=== PATIENT | female | born 1950 | race Caucasian/White ===

== ENCOUNTER → 2016-06-03 | Outpatient (CLI) | payer MEDICARE ==
--- NOTE | 2016-06-04 08:16 | MM ---
Reason for exam: screening (asymptomatic). Last mammogram was performed 1 year ago. History: Patient is postmenopausal and has history of other cancer at age 26. Family history of breast cancer in paternal grandmother at age 50 and breast cancer in brother at age 52. Physical Findings: A clinical breast exam by your physician is recommended on an annual basis and results should be correlated with mammographic findings. MG Screening Mammo w CAD Bilateral CC and MLO view(s) were taken. Prior study comparison: June 01, 2015, bilateral MG screening mammo w CAD. March 09, 2014, bilateral MG screening mammo w CAD. The breast tissue is heterogeneously dense. This may lower the sensitivity of mammography. Finding: There are typically benign vascular calcifications in both breasts. There is no discrete abnormality. ASSESSMENT: Benign, BI-RAD 2 RECOMMENDATION: Routine screening mammogram of both breasts in 1 year.
== END | disposition home or self-care (01) ==
LOC: RADMAMWWP 05-23 09:17
PROVIDERS: ATTEND Family Medicine
DX: Z12.31 Encounter for screening mammogram for malignant neoplasm of breast (principal)

== ENCOUNTER → 2016-10-22 | Outpatient (CLI) | payer MEDICARE ==
--- NOTE | 2016-10-23 12:37 | PCN ---
DATE OF SERVICE: 10/22/2016 STRESS TEST (DWIGHT) INDICATION: Palpitations. BASELINE HEART RATE: 98 BASELINE BLOOD PRESSURE: 153/51 MAXIMUM HEART RATE: 154 MAXIMUM BLOOD PRESSURE: 166/66 85% MPHR: 131 100% MPHR: 150 METS: 4.0 MAXIMUM STAGE REACHED: 1 TOTAL EXERCISE TIME: 3:16 Baseline EKG showed sinus rhythm, normal axis, normal intervals. Patient exercise on Dwight protocol for a total of 3 minutes, achieving 4 METS, 100% of predicted maximum heart rate without chest pain or diagnostic ST segment depression. CONCLUSION: 1. Poor exercise tolerance. 2. Negative stress test by EKG criteria. 3. No exercise induced cardiac arrhythmia. MTDD
== END | disposition home or self-care (01) ==
LOC: RADNMMAIN 11:00
PROVIDERS: ATTEND Family Medicine
DX: R00.2 Palpitations (principal)
CPT/HCPCS: 93017

== ENCOUNTER → 2017-06-17 | Outpatient (CLI) | payer MEDICARE ==
--- NOTE | 2017-06-18 09:32 | MM ---
Reason for exam: screening (asymptomatic). Last mammogram was performed 1 year ago. History: Patient is postmenopausal and has history of other cancer at age 26. Family history of breast cancer in paternal grandmother at age 50 and breast cancer in brother at age 52. Physical Findings: A clinical breast exam by your physician is recommended on an annual basis and results should be correlated with mammographic findings. MG Screening Mammo w CAD Bilateral CC and MLO view(s) were taken. Prior study comparison: June 03, 2016, bilateral MG screening mammo w CAD. June 01, 2015, bilateral MG screening mammo w CAD. The breast tissue is heterogeneously dense. This may lower the sensitivity of mammography. Finding: There are typically benign vascular, round calcifications in both breasts. There is a chronic nodularity in the left breast. There is no discrete abnormality. ASSESSMENT: Benign, BI-RAD 2 RECOMMENDATION: Routine screening mammogram of both breasts in 1 year.
== END | disposition home or self-care (01) ==
LOC: RADMAMWWP 07:47
PROVIDERS: ATTEND Family Medicine
DX: Z12.31 Encounter for screening mammogram for malignant neoplasm of breast (principal)
CPT/HCPCS: 77067

== ENCOUNTER 2018-01-07 07:48 | Day surgery (SDC) | payer MEDICARE ==
[2018-01-01 13:01] VITALS: BMI 33.3
[~2018-01-07 07:48] MED LIST: LACTATED RINGERS 1,000 ML IV SCH; MOXIFLOXACIN HCL 0.5% DROPS 3 ML BTL OP ONE; TETRACAINE 0.5% OPHTH (PF) DROPS 4 ML BTL OP ONE; TIMOLOL 0.5% OPHTH DROPS 5 ML BTL OP ONE
[2018-01-07 10:24] VITALS: TEMP 98
[2018-01-07] MEDS: CYCLOPENTOLATE 1% OPHTH SOLN 2 ML BTL OP ONE ×3 (10:29→10:44)
[2018-01-07] MEDS: PHENYLEPHRINE 2.5% OPHTH DRP 2ML OP NR ×3 (10:32→10:48)
[2018-01-07] MEDS ORDERED: MIDAZOLAM 2 MG/2 ML VIAL ONE (11:28)
[2018-01-07] MEDS ORDERED: EPINEPHrine (PF) 0.3 ML in BALANCED SALT IRRIG SOLN COMB2 500 ML IRRIGATION ONE (11:43)
[2018-01-07] MEDS ORDERED: HYALURONATE SODIUM INTRAOCULAR 1 EACH SYRINGE (12MG/ML) INTRAOCULA ONE (11:45)
[2018-01-07] MEDS ORDERED: LIDOCAINE 1% (PF) 10MG/ML VIAL SQ ONE (11:46)
[2018-01-07] MEDS ORDERED: BALANCED SALT IRRIG SOLN COMB2 15 ML IRRIG.SOLN INTRAOCULA ONE (11:46)
--- NOTE | 2018-01-07 12:09 | P.OP ---
Date of Procedure: 01/07/18 Preoperative Diagnosis: NS & CS Postoperative Diagnosis: same Procedure(s) Performed: PIOL, OS Implants: PCB00 25.50 Anesthesia: MAC Surgeon: Toby Hardy Estimated Blood Loss (ml): 0 Pathology: none sent Condition: stable Disposition: same day Indications for Procedure: blurry vision Operative Findings: No complications
[2018-01-07 12:28] VITALS: RESP 18
[2018-01-07 12:35] VITALS: BP 126/78; PULSE 63
--- NOTE | 2018-01-08 07:47 | OP ---
OPERATIVE REPORT DATE OF SERVICE: 01/07/2018 SURGEON: Dr. Toby Hardy VIDEOGAME DESIGNER: PREOPERATIVE DIAGNOSES: Nuclear sclerosis and cortical sclerosis. POSTOPERATIVE DIAGNOSES: Nuclear sclerosis and cortical sclerosis. OPERATION: Phacoemulsification of cataract and intraocular lens implant left eye. ESTIMATED BLOOD LOSS: Zero. SPECIMEN TAKEN: None. NARRATIVE: After obtaining the appropriate consent, the patient was brought to the operating room where the patient was placed under cardiac monitoring and prepped and draped in the usual sterile manner. At the 5 o'clock position a 15 degree super sharp blade was used to create a paracentesis followed by instillation of 1% Xylocaine MPF 50:50 mix with BSS into the anterior chamber. This was followed by Amvisc to stabilize the anterior chamber. At the 3 o'clock position a self-sealing corneal flap incision was created using 2.8 mm rodriguez keratome. A cystotome was used to initiate a continuous tear capsulorrhexis which was completed with the Utrata forceps. A Binkhorst cannula was used to hydrodissect the lens nucleus followed by hydrodelineation. Phacoemulsification of the lens was performed utilizing phaco chop in 18.89 seconds at 15% power. The remaining cortical material was removed using the irrigation aspiration mode followed by additional 1% Xylocaine MPF into the anterior chamber followed by viscoelastic to stabilize the capsular bag. An ROQUE PCB00 25.5 diopters posterior chamber lens was placed into the capsular bag without difficulty. The remaining viscoelastic material was removed from the anterior chamber with the irrigation/aspiration. Balanced salt solution was used to normalize the intraocular pressure. The incision was checked for watertight integrity. The patient then received two drops of 0.5% timolol followed by two drops Vigamox, was lightly patched and shielded in the usual manner. There were no complications from the procedure. The patient tolerated the procedure well and was returned to recovery in good condition. MMODL / IJN: [id number] /
== END 2018-01-07 13:21 | disposition home or self-care (01) ==
LOC: OR 07:48
PROVIDERS: ATTEND Ophthalmology
DX: H25.13 Age-related nuclear cataract, bilateral (principal); H25.012 Cortical age-related cataract, left eye; H52.03 Hypermetropia, bilateral; H52.223 Regular astigmatism, bilateral; H35.033 Hypertensive retinopathy, bilateral; H52.4 Presbyopia; B07.9 Viral wart, unspecified; H00.026 Hordeolum internum left eye, unspecified eyelid; H00.023 Hordeolum internum right eye, unspecified eyelid; I11.9 Hypertensive heart disease without heart failure; R00.0 Tachycardia, unspecified; M19.90 Unspecified osteoarthritis, unspecified site; M54.9 Dorsalgia, unspecified; R21 Rash and other nonspecific skin eruption; E07.9 Disorder of thyroid, unspecified; M35.00 Sjogren syndrome, unspecified; J30.2 Other seasonal allergic rhinitis; Z79.890 Hormone replacement therapy; Z79.899 Other long term (current) drug therapy; Z88.5 Allergy status to narcotic agent; Z88.8 Allergy status to other drugs, medicaments and biological substances; Z85.828 Personal history of other malignant neoplasm of skin; Z87.891 Personal history of nicotine dependence
CPT/HCPCS: 66984; C1780; J2250; J0171; J2001

== ENCOUNTER 2018-01-21 06:43 | Day surgery (SDC) | payer MEDICARE ==
[2018-01-16 10:28] VITALS: BMI 33.3
[~2018-01-21 06:43] MED LIST changes: +HYDROmorphone 0.5 MG/0.5 ML SYRINGE IVP PRN; -LACTATED RINGERS 1,000 ML IV SCH; +LIDOCAINE 1% 20 ML VIAL (10MG/ML) FOR IV START INTRADERMA PRN
[2018-01-21] MEDS ORDERED: LACTATED RINGERS 1,000 ML IV SCH (06:45)
[2018-01-21] MEDS: CYCLOPENTOLATE 1% OPHTH SOLN 2 ML BTL OP ONE ×2 (07:15→07:22)
[2018-01-21] MEDS: PHENYLEPHRINE 2.5% OPHTH DRP 2ML OP NR ×3 (07:18→07:32)
[2018-01-21 07:20] VITALS: RESP 16; TEMP 97.7
[2018-01-21] MEDS ORDERED: CYCLOPENTOLATE 1% OPHTH SOLN 2 ML BTL OP ONE (07:29)
[2018-01-21] MEDS ORDERED: DUOVISC KIT (GREEN BOX) INTRAOCULA ONE (08:15)
[2018-01-21] MEDS ORDERED: LIDOCAINE 1% (PF) 10MG/ML VIAL MISCELLANE ONE (08:15)
[2018-01-21] MEDS ORDERED: EPINEPHrine (PF) 0.3 ML in BALANCED SALT IRRIG SOLN COMB2 500 ML IRRIGATION ONE (08:15)
[2018-01-21] MEDS ORDERED: BALANCED SALT IRRIG SOLN COMB2 15 ML IRRIG.SOLN IRRIGATION ONE (08:15)
--- NOTE | 2018-01-21 08:32 | P.OP ---
Date of Procedure: 01/21/18 Preoperative Diagnosis: NS Postoperative Diagnosis: same Procedure(s) Performed: PIOL, OD Implants: PCB00 25.50 Anesthesia: MAC Surgeon: Toby Hardy Pathology: none sent Condition: stable Disposition: same day Indications for Procedure: blurry vision Operative Findings: No complications
[2018-01-21 08:56] VITALS: BP 135/82; PULSE 62
--- NOTE | 2018-01-21 18:48 | OP ---
OPERATIVE REPORT DATE OF SURGERY: January 21, 2018. PROCEDURE PERFORMED: Phacoemulsification of cataract and intraocular lens implant of the right eye. COLLEGE HIRE:: @@ PREOPERATIVE DIAGNOSIS:: Nuclear sclerosis. POSTOPERATIVE DIAGNOSIS:: Nuclear sclerosis. OPERATION:: Clear cornea phacoemulsification of cataract OD eye. ESTIMATED BLOOD LOSS:: Zero. SPECIMEN TAKEN:: None. NARRATIVE:: After obtaining the appropriate consent, the patient was brought to the Operating Room where the patient was placed under cardiac monitoring and prepped and draped in the usual sterile manner. At the 11 o'clock position a 15 degree super sharp blade was used to create a paracentesis followed by instillation of 1% Xylocaine MPF 50:50 mix with BSS into the anterior chamber. This was followed by Duovisc to stabilize the anterior chamber. At the 9 o'clock position a self-sealing corneal flap incision was created using 2.8 mm rodriguez keratome. A cystatome was used to initiate a continuous tear capsulorrhexis which was completed with the Utrata forceps. A Binkhorst cannula was used to hydrodissect the lens nucleus followed by hydrodelineation. Phacoemulsification of the lens was performed utilizing phacochop in 20.78 Seconds at 15% power. The remaining cortical material was removed using the irrigation aspiration mode followed by additional 1% Xylocaine MPF into the anterior chamber followed by viscoelastic to stabilize the capsular bag. An ROQUE PZB 00 25.5 diopter posterior chamber lens was placed into the capsular bag without difficulty. The remaining viscoelastic material was removed from the anterior chamber with the irrigation/aspiration. Balanced salt solution was used to normalize the intraocular pressure. The incision was checked for watertight integrity. The patient then received two drops of 0.5% timolol followed by two drops Vigamox, was lightly patched and shielded in the usual manner. There were no complications from the procedure. The patient tolerated the procedure well and was returned to recovery in good condition. MMODL / IJN: [id number] /
== END 2018-01-21 09:13 | disposition home or self-care (01) ==
LOC: OR 06:43
PROVIDERS: ATTEND Ophthalmology
DX: H25.11 Age-related nuclear cataract, right eye (principal); H52.03 Hypermetropia, bilateral; H52.223 Regular astigmatism, bilateral; H35.033 Hypertensive retinopathy, bilateral; H52.4 Presbyopia; H25.012 Cortical age-related cataract, left eye; B07.9 Viral wart, unspecified; H00.026 Hordeolum internum left eye, unspecified eyelid; H00.023 Hordeolum internum right eye, unspecified eyelid; Z96.1 Presence of intraocular lens; I11.9 Hypertensive heart disease without heart failure; R00.0 Tachycardia, unspecified; M19.90 Unspecified osteoarthritis, unspecified site; E07.9 Disorder of thyroid, unspecified; K21.9 Gastro-esophageal reflux disease without esophagitis; J30.2 Other seasonal allergic rhinitis; Z79.890 Hormone replacement therapy; Z79.899 Other long term (current) drug therapy; Z88.8 Allergy status to other drugs, medicaments and biological substances; Z88.5 Allergy status to narcotic agent; Z85.828 Personal history of other malignant neoplasm of skin; Z87.891 Personal history of nicotine dependence
CPT/HCPCS: 66984; C1780; J0171; J2001

== ENCOUNTER → 2018-06-30 | Outpatient (CLI) | payer MEDICARE ==
--- NOTE | 2018-06-30 11:15 | MM ---
Reason for exam: screening (asymptomatic). Last mammogram was performed 1 year ago. History: Patient is postmenopausal and has history of other cancer at age 26. Family history of breast cancer in paternal grandmother at age 50 and breast cancer in brother at age 52. Physical Findings: A clinical breast exam by your physician is recommended on an annual basis and results should be correlated with mammographic findings. MG 3D Screening Mammo W/Cad Bilateral CC and MLO view(s) were taken. XCCL view(s) were taken of the left breast. Prior study comparison: June 17, 2017, bilateral MG screening mammo w CAD. June 03, 2016, bilateral MG screening mammo w CAD. The breast tissue is heterogeneously dense. This may lower the sensitivity of mammography. There are benign appearing round vascular calcifications bilaterally. There is chronic nodularity in the left breast. There is no discrete abnormality. ASSESSMENT: Benign, BI-RAD 2 RECOMMENDATION: Routine screening mammogram of both breasts in 1 year.
== END | disposition home or self-care (01) ==
LOC: RADMAMWWP 07:15
PROVIDERS: ATTEND Family Medicine
DX: Z12.31 Encounter for screening mammogram for malignant neoplasm of breast (principal)
CPT/HCPCS: 77063; 77067

== ENCOUNTER → 2019-05-27 | Outpatient (CLI) | payer MEDICARE ==
[~2019-05-27] MED LIST changes: +DENOSUMAB 60 MG/ML 1 ML SYRINGE SQ NR; -HYDROmorphone 0.5 MG/0.5 ML SYRINGE IVP PRN; -LIDOCAINE 1% 20 ML VIAL (10MG/ML) FOR IV START INTRADERMA PRN; -MOXIFLOXACIN HCL 0.5% DROPS 3 ML BTL OP ONE; -TETRACAINE 0.5% OPHTH (PF) DROPS 4 ML BTL OP ONE; -TIMOLOL 0.5% OPHTH DROPS 5 ML BTL OP ONE
[2019-05-27 14:04] VITALS: BP 145/67; PULSE 68; RESP 16; TEMP 97.9
== END | disposition home or self-care (01) ==
LOC: PROCWHC3 13:43
PROVIDERS: ATTEND Family Medicine
DX: M81.0 Age-related osteoporosis without current pathological fracture (principal)
CPT/HCPCS: 96372; J0897

== ENCOUNTER → 2020-08-30 | Outpatient (CLI) | payer MEDICARE ==
[2020-08-30 09:59] VITALS: BP 121/62; PULSE 76; RESP 16; TEMP 97.9
--- NOTE | 2020-08-30 10:17 | P.PAINCN ---
History of Present Illness - Reason for Consult Consult date: 08/30/20 - History of Present Illness This is a 70-year-old patient referred by Dr. Delma Rocha with a chief complaint of low back pain. Long history of low back pain worse on the left side. She feels like she's been hit in the low back with a bat. Occasionally radiates down the anterior aspect of her lower extremities to the foot. She describes it as sharp shooting as well as numb and tingling. Pain is helped with Motrin and forward flexion. Exacerbated by standing and moving around. Currently 6 out of 10, at its best 5 out of 10, at its worst a 10 out of 10. She notes some right shoulder pain with radiation into the thumb which she said occurred 4 years ago and she grabbed onto a railing and was pulled back. 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 In terms of management she has done physical therapy, last session was last November, which did help but overall did not provide meaningful long-lasting relief. She says Motrin helps her a lot, however it causes her to have some reflux as well as hiccuping. Also concerned about cardiac effects using emt intermediate NSAIDs. She has not had any back surgery or any injections in her back for pain. Most worrisome is she does note that most recently in the past month she has had 2 episodes of sudden bowel release where she felt she lost control of her bowels. There are no signs of acute intoxication, and no indications of medication diversion or overuse. In addition to above, 13-point review of systems is also negative for chest pain, shortness of breath, changes in vision, changes in hearing, new onset weakness, abdominal pain, diarrhea, extreme fatigue, malaise, fever, skin changes, homicidal or suicidal ideation, or bowel or bladder incontinence. Physical exam: Vital Signs: Reviewed in EMR GENERAL: Well appearing, in no acute distress PSYCH: Mood and affect is appropriate. Awake, alert, and oriented SKIN: Skin color, texture, turgor normal, no rashes or lesions HEENT: Normocephalic, atraumatic. EOM intact CV: No pedal edema RESP: Respirations are unlabored, no audible wheezing GI: Abdomen non-distended MUSCULOSKELETAL: No atrophy or tone abnormalities are noted. Neck: No pain to palpation over the cervical paraspinous muscles. Spurling negative, Axial Loading Test negative, Alcazar's sign negative. No pain with neck flexion, extension, or lateral flexion. No obvious deformity or signs of trauma. Normal cervical lordotic curve and normal cervical spine range of motion. 4/5 right shoulder flexion, otherwise strength intact. Lumbar spine: Straight leg raising in the sitting position is negative for radicular pain. Mild pain to palpation over the lumbar spine and paraspinous muscles. Positive for pain with facet loading. 4/5 EHL and 4/5 hip flexion bilaterally. Normal range of motion without pain reproduction Buttocks: No pain to palpation over the PSIS, Lyudmila test is negative Extremities: Peripheral joint ROM is full and pain free without obvious instability or laxity in all four extremities. No edema or skin discolorations noted. Gait: Gait is slow NEUR: Bilateral upper and lower extremity coordination and muscle stretch reflexes are physiologic and symmetric. Negative clonus. No loss of sensation is noted. Cranial nerves are grossly intact. Imaging: Lumbar MRI L1-2 shows a mild broad-based disc bulge mildly effacing anterior thecal sac L2-L3 shows mild to moderate facet degenerative changes bilaterally with some effacement of the posterior lateral thecal sac. Neural foramina are patent L3-L4 shows mild to moderate broad-based posterior disc protrusion effacing the anterior thecal sac. There is mild to moderate facet degenerative changes and ligamentum flavum hypertrophy. There is moderate left-sided inferior neural foraminal narrowing L4-L5 shows marketed advanced facet degenerative changes bilaterally with the posterior lateral synovial cyst. There is mild to moderate broad-based disc bulge with a right paracentral and foraminal disc protrusion effacing the anterior lateral and right lateral thecal sac. Moderate right-sided neural foraminal narrowing. L5-S1 shows mild to moderate facet degenerative changes bilaterally. Assessment: 1. Lumbar spinal stenosis 2. Lumbar spondylosis 3. Lumbar radiculopathy Plan: 1. Explanation: Diagnoses, prognoses, and multiple treatment options including but not limited to physical therapy, interventional therapies, medication management and surgery were discussed with the patient and all questions were answered to the patient's satisfaction. 2. Investigations: Given Patient's recent episodes of loss of bowel control, I've asked her to get an MRI as soon as she can and she can follow-up with us immediately. I am concerned that she might have some major stenosis which is ca using significant spinal cord impingement. If we do help her with her back, we can consider cervical MRI in the future as well to evaluate her right arm pain. However I feel her back is most concerning right now 3. Counseling: The patient was counseled for 3 minutes on BODY MASS INDEX, EXERCISE. Specifically, the patient was instructed regarding the importance of weight control, and exercise in the context of both chronic pain and overall health. 4. Procedures: If there is no major spinal cord stenosis that requires surgery, I think she would be a good candidate for medial branch blocks at L4-L5 and L5- S1. She could also benefit from epidural injections in the future given her radicular symptoms, however given that a majority of her pain is axial in nature I think pursuing the medial branch interventions would be most helpful for her. 5. Consultations: Consider neurosurgery consult if MRI shows major stenosis 6. Medications: I have prescribed Meloxicam for her 7.5 mg BID as she has been having some GI side effects from motrin. I told her to start with 7.5 mg QHS first to see how she first tolerates. We also discussed muscle relaxers, however she said she took them in the past with limited benefit. 7. Disposition: She will call to follow up after obtaining MRI Past Medical History Past Medical History: Cancer, Eye Disorder, Hyperlipidemia, Hypertension, Pulmonary Embolus (PE) Additional Past Medical History / Comment(s): PE AGE 28 , SKIN CANCER ON FORHEAD History of Any Multi-Drug Resistant Organisms: None Reported Past Surgical History: Hysterectomy Additional Past Surgical History / Comment(s): SKIN CANCER REMOVED FROM FORHEAD, COLONOSCOPY,SEVERAL D & C'S R/T MISCARRIAGES, cataract left eye Past Anesthesia/Blood Transfusion Reactions: Postoperative Nausea & Vomiting (PONV) Past Psychological History: No Psychological Hx Reported Past Alcohol Use History: Occasional Additional Past Alcohol Use History / Comment(s): QUIT SMOKING AGE 27 Past Drug Use History: None Reported - Past Family History Brother(s) Family Medical History: Cancer Medications and Allergies Home Medications Medication Instructions Recorded Confirmed Type Levothyroxine Sodium [Synthroid] 25 mcg PO DAILY 01/01/18 05/27/19 History amLODIPine [Norvasc] 10 mg PO DAILY 01/01/18 05/27/19 History Allergies Allergy/AdvReac Type Severity Reaction Status Date / Time acetaminophen AdvReac DIZZINESS [facility]27[facility]19 [facility]hene AdvReac DIZZINESS Verified 05/27/19 [facility]:00 [facility] Rkidxty-Kex-Oap Reductase AdvReac GENERALIZED Verified 05/27/19 14:00 Inhibitor BODY ACHES/PAINS PQRS Measure Charge Sheet PQRS Narrative: Smoking Status Former smoker Home Medications: Ambulatory Orders Levothyroxine Sodium [Synthroid] 25 mcg PO DAILY 01/01/18 amLODIPine [Norvasc] 10 mg PO DAILY 01/01/18
== END ==
LOC: PNWHC3 09:28
PROVIDERS: ATTEND Anesthesiology
DX: M48.061 Spinal stenosis, lumbar region without neurogenic claudication (principal); M54.16 Radiculopathy, lumbar region; M47.816 Spondylosis without myelopathy or radiculopathy, lumbar region; I10 Essential (primary) hypertension; E78.5 Hyperlipidemia, unspecified; Z87.891 Personal history of nicotine dependence
CPT/HCPCS: 99211

== ENCOUNTER → 2020-09-11 | Outpatient (CLI) | payer MEDICARE ==
--- NOTE | 2020-09-11 13:36 | MR ---
EXAMINATION TYPE: MR lumbar spine wo con DATE OF EXAM: 09/11/2020 COMPARISON: NONE HISTORY: Low back pain, loss of bowel control TECHNIQUE: Multiplanar, multisequence imaging of the lumbar spine is performed without IV contrast. FINDINGS: Sagittal images of the lumbar spine show vertebral body heights to appear satisfactory. Sev ere grade 1 anterolisthesis L4 on L5. Multilevel disc desiccation. Moderate to advanced disc space na rrowing L3-L4 level. Moderate disc space narrowing L4-L5 level. Conus medullaris is normal in positio n and signal ending superior L1 level. Small Tarlov cysts at S2 level sagittal image 9. Heterogeneous morbid type I and type II endplate changes L3-L4 level. Axial images show T12-L1 level to appear within normal limits. Axial images at L1-L2 level show mild broad disc bulge minimally effaces the anterior thecal sac and mild facet arthropathy bilaterally. Patent bilateral neural foramina. Axial images at L2-L3 level show mild/moderate facet degenerative changes and ligament hypertrophy. M ild broad disc bulge mildly effaces the anterior thecal sac. Axial images at L3-L4 level show moderate facet degenerative changes with facet hypertrophy present p osterior left thecal sac. Mild/moderate broad disc bulge effacing the anterior thecal sac. Moderate t o severe left-sided neural foraminal narrowing seen best sagittal image 6. Patent right-sided neural foramina. Axial images at L4-L5 level show spondylolisthesis with severe ligamentum flavum hypertrophy base and posterior lateral thecal sac. There is broad-based posterior disc protrusion effacing anterior theca l sac. Moderate bilateral neural foraminal narrowing noted. Axial images at L5-S1 level show moderate facet arthropathy. Spinal canal preserved. IMPRESSION: Multilevel degenerative changes as detailed above. Most prominent spinal canal stenosis n oted L4-L5 level. Most prominent neural foraminal narrowing noted left L3-L4 level.
== END | disposition home or self-care (01) ==
LOC: RADMRIMAIN 06:08
PROVIDERS: ATTEND Anesthesiology
DX: M51.26 Other intervertebral disc displacement, lumbar region (principal); M51.36 Other intervertebral disc degeneration, lumbar region; M99.73 Connective tissue and disc stenosis of intervertebral foramina of lumbar region; M43.16 Spondylolisthesis, lumbar region; M47.817 Spondylosis without myelopathy or radiculopathy, lumbosacral region; M48.061 Spinal stenosis, lumbar region without neurogenic claudication
CPT/HCPCS: 72148

== ENCOUNTER → 2020-10-02 | Outpatient (CLI) | payer MEDICARE ==
[2020-10-02 08:03] VITALS: BP 136/80; PULSE 79; RESP 16; TEMP 98.1
--- NOTE | 2020-10-02 08:38 | P.PAINPG ---
Subjective Progress Note Date: 10/02/20 This is follow-up visit for this 70 years old female with a chronic history of severe low back pain, the patient here today for discussion about the MRI result , patient had severe low back pain which is increased with activity , she is able to ambulate using a cane, she continued to work, she reporte that the pain is constant and increases with any activity, her MRI report reviewed and it showed that she had multilevel lumbar degenerative disc disease, multilevel lumbar spondylosis with lumbar facet arthropathy and multilevel foraminal stenosis, she denies any fever or night sweats but she has occasional diarrhea Objective - Vital Signs Vital signs: Vital Signs Temp 98.1 F 10/02/20 08:00 Pulse 79 10/02/20 08:00 Resp 16 10/02/20 08:00 BP 136/80 10/02/20 08:00 Pulse Ox 99 10/02/20 08:00 - Exam Physical Examinations : -Constitutiona : Cooperative , not in acute distress . -HEENT : nech : supple , no Lymphadenopathy , normal thyroid size . : eyes : no ptosis , no icterus, no photophobia . - neurologic : Cranial nerve II to XII intact , no focal neurological deffecit . -psychatric : alert , oriented X 3 , appropriate affect , intact judgment and insight . -Lymphatic : no Lymphadenopathy . - musculoskeltal : Lumber spine moter stegnth lower extremities ,thigh and legs 5/5 Right side , 5/5 Left side deep tendon reflexes : normal Knee Jerk , normal ankle Jerk lumber facet Loading Test =positive Right , positive Left Range of motion of the lumbar spine Flexion 30 degrees, extension 10 degrees strait leg raising test = negative bilaterally Fabere test= negative bilaterally. mild tenderness over the Sacroiliac joint on the Right , and Left sides. MRI of the lumbar spine reviewed and it showed T11 lumbar degenerative disc disease multilevel foraminal stenosis multilevel lumbar facet arthropathy Assessment and Plan Plan: Assessment and plan=1-lumbar degenerative disc disease. 2-lumbar spondylosis with lumbar facet arthropathy. 3-lumbar spinal stenosis. Patient failed conservative treatment she tried physical therapy without any significant improvement of her symptoms she tries pain medication and said naproxen Mobic and Motrin previously without any significant improvement, and she is having side effects from the medication(st omach irritation, and she had a history of GERD ), patient could benefit from Ultram 50 mg half a tablet every 8 hours when necessary prescription for that given and patient signed the narcotic agreement side effects and benefits and complications of bowel. Discussed with the patient and she understood , and she agreed to proceed, so patient could benefit from diagnostic medial branch block and possible RFA of the medial branch lumbar area at L3, L4, L5, bilaterally and she has good results with that block to proceed with RFA Time with Patient: Less than 30 PQRS Measure Charge Sheet Measure #130: Documentation of Current Meds in Medical Chart: Patient's medications documented in chart Measure #226: Tobacco Use: Screen & Cessation Intervention: Pt not a tobacco user Measure #111: Pneumonia Vaccination: Pneumococcal vaccine NOT administered or previously given Measure #47: Advance Care Plan: Advance care planning discussed & documented, pt chose/unable to give Measure #412: Opioid Treatment Agreement: Documented signed opioid trtmnt agreemnt min once during opioid trtmnt Measure #408: Opioid Therapy Follow-up Evaluation: Patient had f/u eval minimum every 3 months during opioid therapy Measure #317: Preventitive Care & Scrn High Bld Press & F/U: Normal blood pressure, f/u not required Measure #128: Body Mass Index (BMI) Screening & Follow-up: BMI documented ABOVE normal parameters - f/u documented Measure #131: Pain Assessment & Follow-up: Pain positive & plan documented, Follow-up scheduled Measure #431: Unhealthy Alcohol Use Preventative Care & Scrn: Patient not identified as an unhealthy alcohol user PQRS Narrative: Smoking Status Former smoker Blood Pressure 136/80 Pain Intensity [Left Lower 5 Back] Scale Used Numeric (1 - 10) Hx Alcohol Use (MH) Yes Home Medications: Ambulatory Orders Levothyroxine Sodium [Synthroid] 25 mcg PO DAILY 01/01/18 amLODIPine [Norvasc] 10 mg PO DAILY 01/01/18 Controlled Substance Measures - Controlled Substance Measures Is patient prescribed a controlled substance at discharge?: Yes
== END ==
LOC: PNWHC3 07:49
PROVIDERS: ATTEND Specialist
DX: M51.36 Other intervertebral disc degeneration, lumbar region (principal); M47.816 Spondylosis without myelopathy or radiculopathy, lumbar region; M48.061 Spinal stenosis, lumbar region without neurogenic claudication; Z87.891 Personal history of nicotine dependence; Z88.6 Allergy status to analgesic agent; Z88.8 Allergy status to other drugs, medicaments and biological substances; Z88.5 Allergy status to narcotic agent
CPT/HCPCS: 99211

== ENCOUNTER → 2020-10-13 | Day surgery (SDC) | payer MEDICARE ==
[2020-10-12 09:30] VITALS: BMI 35.5
[~2020-10-13] MED LIST changes: -DENOSUMAB 60 MG/ML 1 ML SYRINGE SQ NR; +IV FLUID CONTINUATION 1,000 ML IV ONE; +LACTATED RINGERS 1,000 ML IV ONE; +MIDAZOLAM 2 MG/2 ML VIAL ONE; +ROPIVACAINE 5MG/ML 20ML VIAL ONE; +fentaNYL (PF) 50 MCG/ML 2 ML AMP ONE; +methylPREDNISolone ACETATE 40 MG/ML 1 ML VIAL ONE
[2020-10-13 13:20] VITALS: TEMP 98.1
--- NOTE | 2020-10-13 14:21 | P.PCN ---
Date of Procedure: 10/13/20 Procedure(s) Performed: PREOPERATIVE DIAGNOSIS : 1- Lumbar spondylosis with Facet Arthropathy without myelopathy . 2- Lumber degenerative disc disease POSTOPERATIVE DIAGNOSIS: 1- Lumbar spondylosis with Facet Arthropathy without myelopathy . 2- Lumber degenerative disc disease PROCEDURE: Diagnostic bilateral L3 , L4 , and L5 medial branch block under fluoroscopy guidance(fluoroscopy images available in the radiology Department ) ( To target the facet joint between bilateral L4-5 , and L5-S1 ) ANESTHESIA:monitored anesthesia care as per anesthesia department. EBL: Minimal COMPLICATION: None PROCEDURE INDICATION: Chronic low back pain secondary to Facet arthropathy unresponsive to conservative treatment. PROCEDURE DESCRIPTION: the patient was seen and identified in the preop holding area , risks and benefits and possible complications of the procedure and alternative were discussed with the patient, and the patient agreed to proceed with the procedure and signed the consent and vital signs monitored during the procedure and fluoroscopy was used to maximize the benefit and accuracy of the needle placement, and sedation was given to decrease patient anxiety, patient was taken to the procedure room and placed in prone position vital signs monitored in the back prepped with chlorhexidine X3 then under strict sterile technique using a right oblique fluoroscopy ,the junction of the transverse process and the superior articulating process of the right L3 , L4 , and L5 vertebra which corresponding to the fluoroscopy image of the eye of the Jose Miguel dog on the block side for the medial branches and subsequently , after local infiltration of skin and subcu tissuies with Ropivacaine 0.5 % , one mL at each level ,then 22-gauge 5 inches long Quincke-type needles , 3 needle was used , each one of them placed at the junction of the base of the transverse process and the superior articular process at the appropriate level, and the needle was advanced until the periosteum contacted, needle placement confirmed with AP oblique and lateral view and after appropriate needle placement confirmed, and after negative aspiration for heme and CSF and there was no paresthesia 1-1/2 mL of Ropivacaine 0.5% mixed with 20 mg Depo-Medrol , then half mL injected at each level after negative aspiration the needle subsequently removed and the same procedure repeated for the left side at left side at L3 , L4 and L5 levels. At the end of the procedure and the needles removed and a bandage applied after the skin was cleaned the cleaning solution patient taken to recovery room in stable condition and monitors in the recovery room for 20-30 minutes and discharged home in stable condition after discharge criteria met and patient will follow up with the pain clinic in 2-4 weeks
[2020-10-13] MEDS: LACTATED RINGERS 1,000 ML IV SCH (14:25)
[2020-10-13 14:27] VITALS: RESP 17
--- NOTE | 2020-10-13 14:33 | FL ---
Fluoroscopy INDICATION: Pain FINDINGS: Fluoroscopy time: 34 seconds. Images obtained: 4. IMPRESSIONS: 1. Documentation of fluoroscopy.
[2020-10-13 14:37] VITALS: BP 122/71; PULSE 79
[2020-10-17] MEDS: LACTATED RINGERS 1,000 ML IV SCH (10:42)
== END ==
LOC: ORPAIN 12:57
PROVIDERS: ATTEND Specialist
DX: G89.29 Other chronic pain (principal); M47.816 Spondylosis without myelopathy or radiculopathy, lumbar region; M51.36 Other intervertebral disc degeneration, lumbar region; I10 Essential (primary) hypertension; E78.5 Hyperlipidemia, unspecified; Z86.711 Personal history of pulmonary embolism; E07.9 Disorder of thyroid, unspecified; Z79.1 Long term (current) use of non-steroidal anti-inflammatories (NSAID); Z79.890 Hormone replacement therapy; Z79.899 Other long term (current) drug therapy; Z88.5 Allergy status to narcotic agent; Z88.8 Allergy status to other drugs, medicaments and biological substances
CPT/HCPCS: 64493; 64494; J2250; J1030; J3010; J2795

== ENCOUNTER 2020-11-03 08:58 | Day surgery (SDC) | payer MEDICARE ==
[2020-11-02 08:55] VITALS: BMI 35.9
[2020-11-03 09:11] VITALS: TEMP 97.7
[2020-11-03] MEDS ORDERED: LACTATED RINGERS 1,000 ML IV ONE (09:12)
[2020-11-03] MEDS ORDERED: LIDOCAINE 1% (10MG/ML) FOR IV START INTRADERMA ONE (09:16)
[2020-11-03] MEDS ORDERED: MIDAZOLAM 2 MG/2 ML VIAL ONE (09:21)
[2020-11-03] MEDS ORDERED: TRIAMCINOLONE ACETONIDE 40 MG/ML 1 ML VIAL ONE (09:21)
[2020-11-03] MEDS ORDERED: fentaNYL (PF) 50 MCG/ML 2 ML AMP ONE (09:21)
[2020-11-03] MEDS ORDERED: IOPAMIDOL M200 10 ML VIAL ONE (09:21)
[2020-11-03] MEDS ORDERED: ROPIVACAINE 5MG/ML 20ML VIAL ONE (09:21)
[2020-11-03] MEDS ORDERED: IV FLUID CONTINUATION 1,000 ML IV ONE (09:40)
--- NOTE | 2020-11-03 09:41 | P.PCN ---
Date of Procedure: 11/03/20 Description of Procedure: PREOPERATIVE DIAGNOSIS : 1- Lumbar spondylosis with Facet Arthropathy without myelopathy . 2- Lumber degenerative disc disease POSTOPERATIVE DIAGNOSIS: 1- Lumbar spondylosis with Facet Arthropathy without myelopathy . 2- Lumber degenerative disc disease PROCEDURE: Diagnostic bilateral #2 L3 , L4 , and L5 medial branch block under fluoroscopy guidance(fluoroscopy images available in the radiology Department ) ( To target the facet joint between bilateral L4-5 , and L5-S1 ) ANESTHESIA:monitored anesthesia care as per anesthesia department. EBL: Minimal COMPLICATION: None PROCEDURE INDICATION: Chronic low back pain secondary to Facet arthropathy unresponsive to conservative treatment. PROCEDURE DESCRIPTION: the patient was seen and identified in the preop holding area , risks and benefits and possible complications of the procedure and alternative were discussed with the patient, and the patient agreed to proceed with the procedure and signed the consent and vital signs monitored during the procedure and fluoroscopy was used to maximize the benefit and accuracy of the needle placement, and sedation was given to decrease patient anxiety, patient was taken to the procedure room and placed in prone position vital signs monitored in the back prepped with chlorhexidine X3 then under strict sterile technique using a right oblique fluoroscopy ,the junction of the transverse process and the superior articulating process of the right L3 , L4 , and L5 vertebra which corresponding to the fluoroscopy image of the eye of the Jose Miguel dog on the block side for the medial branches and subsequently , after local infiltration of skin and subcu tissuies with Ropivacaine 0.5 % , one mL at each level ,then 25-gauge 5 inches long Quincke-type needles , 3 needle was used , each one of them placed at the junction of the base of the transverse process and the superior articular process at the appropriate level, and the needle was advanced until the periosteum contacted, needle placement confirmed with AP oblique and lateral view and after appropriate needle placement confirmed, and after negative aspiration for heme and CSF and there was no paresthesia 1-1/2 mL of Ropivacaine 0.5% mixed with 20 mg Depo-Medrol , then half mL injected at each level after negative aspiration the needle subsequently removed and the same procedure repeated for the left side at left side at L3 , L4 and L5 levels. At the end of the procedure and the needles removed and a bandage applied after the skin was cleaned the cleaning solution patient taken to recovery room in stable condition and monitors in the recovery room for 20-30 minutes and discharged home in stable condition after discharge criteria met and patient will follow up with the pain clinic in 2-4 weeks
[2020-11-03 09:55] VITALS: BP 115/76; PULSE 72; RESP 16
--- NOTE | 2020-11-03 10:06 | FL ---
EXAMINATION TYPE: FL guided pain mgmt statistic DATE OF EXAM: 11/03/2020 CLINICAL HISTORY: Low back pain. TECHNIQUE: Fluoroscopy. COMPARISON: None. FINDINGS: Fluoroscopic guidance was provided during pain relief procedure performed by Dr. Higuera . A total of 12 seconds of fluoroscopic time was utilized during the procedure and 3 spot images are acquired. Images acquired shows needle localization at several levels near the lumbosacral junction. IMPRESSION: As Above.
== END 2020-11-03 10:10 | disposition home or self-care (01) ==
LOC: ORPAIN 08:58
PROVIDERS: ATTEND Anesthesiology
DX: G89.29 Other chronic pain (principal); M47.816 Spondylosis without myelopathy or radiculopathy, lumbar region; Z88.8 Allergy status to other drugs, medicaments and biological substances; M51.36 Other intervertebral disc degeneration, lumbar region; I10 Essential (primary) hypertension; Z86.718 Personal history of other venous thrombosis and embolism; E07.9 Disorder of thyroid, unspecified; Z79.1 Long term (current) use of non-steroidal anti-inflammatories (NSAID); Z79.890 Hormone replacement therapy; Z79.899 Other long term (current) drug therapy
CPT/HCPCS: 64493; 64494; J2250; J3301; J3010; Q9966; J2795

== ENCOUNTER → 2020-11-27 | Outpatient (CLI) | payer MEDICARE ==
[2020-11-27 08:43] VITALS: BP 128/80; PULSE 74; RESP 18; TEMP 97.9
--- NOTE | 2020-11-27 08:59 | P.PN ---
Subjective Progress Note Date: 11/27/20 This is follow-up visit for this 70 years old female with a chronic history of severe low back pain, is diagnosed with lumbar spondylosis with lumbar facet arthropathy, lumbar spinal stenosis, recently we have done diagnostic medial branch block lumbar area x2 , patient reported that after each block she gets more than 80% improvement of her low back pain, and she was able to function and move freely after each block, the pain relief was only for short-term, patient had severe low back pain which is increased with activity , she is able to ambulate using a cane, she continued to work, she reporte that the pain is constant and increases with any activity, she denies any fever or night sweats ,. Physical Examinations : -Constitutiona : Cooperative , not in acute distress . -HEENT : nech : supple , no Lymphadenopathy , normal thyroid size . : eyes : no ptosis , no icterus, no photophobia . - neurologic : Cranial nerve II to XII intact , no focal neurological deffecit . -psychatric : alert , oriented X 3 , appropriate affect , intact judgment and insight . -Lymphatic : no Lymphadenopathy . - musculoskeltal : Lumber spine moter stegnth lower extremities ,thigh and legs 5/5 Right side , 5/5 Left side deep tendon reflexes : normal Knee Jerk , normal ankle Jerk lumber facet Loading Test =positive Right , positive Left Range of motion of the lumbar spine Flexion 30 degrees, extension 10 degrees strait leg raising test = negative bilaterally Fabere test= negative bilaterally. mild tenderness over the Sacroiliac joint on the Right , and Left sides. Small mass 3 mm diameter in the left buttock area MRI of the lumbar spine reviewed and it showed T11 lumbar degenerative disc disease multilevel foraminal stenosis multilevel lumbar facet arthropathy Assessment and Plan Plan: Assessment and plan=1-lumbar degenerative disc disease. 2-lumbar spondylosis with lumbar facet arthropathy. 3-lumbar spinal stenosis. Patient failed conservative treatment she tried physical therapy without any significant improvement of her symptoms she tries pain medication and said naproxen Mobic and Motrin previously without any significant improvement, and she is having side effects from the medication(stomach irritation, and she had a history of GERD ), patient could benefit from Ultram 50 mg half a tablet every 8 hours when necessary prescription for that given and patient signed the narcotic agreement side effects and benefits and complications of bowel. Discussed with the patient and she understood , patient had more than 80% improvement of her low back pain after diagnostic medial branch block , she would be good candidate to have RFA of the medial branch lumbar area at L3, L4, L5, bilaterally , she will be referred for evaluation regarding her left buttock mass Time with Patient: Less than 30 PQRS Measure Charge Sheet Measure #130: Documentation of Current Meds in Medical Chart: Patient's medications documented in chart Measure #226: Tobacco Use: Screen & Cessation Intervention: Pt not a tobacco user Measure #111: Pneumonia Vaccination: Pneumococcal vaccine NOT administered or previously given Measure #47: Advance Care Plan: Advance care planning discussed & documented, pt chose/unable to give Measure #412: Opioid Treatment Agreement: Documented signed opioid trtmnt agreemnt min once during opioid trtmnt Measure #408: Opioid Therapy Follow-up Evaluation: Patient had f/u eval minimum every 3 months during opioid therapy Measure #317: Preventitive Care & Scrn High Bld Press & F/U: Normal blood pressure, f/u not required Measure #128: Body Mass Index (BMI) Screening & Follow-up: BMI documented ABOVE normal parameters - f/u documented Measure #131: Pain Assessment & Follow-up: Pain positive & plan documented, Follow-up scheduled Measure #431: Unhealthy Alcohol Use Preventative Care & Scrn: Patient not identified as an unhealthy alcohol user PQRS Narrative: Objective - Vital Signs Vital signs: Vital Signs Temp 97.9 F 11/27/20 08:38 Pulse 74 11/27/20 08:38 Resp 18 11/27/20 08:38 BP 128/80 11/27/20 08:38 Pulse Ox 97 11/27/20 08:38
== END ==
LOC: PNWHC3 08:24
PROVIDERS: ATTEND Specialist
DX: M47.816 Spondylosis without myelopathy or radiculopathy, lumbar region (principal); M48.061 Spinal stenosis, lumbar region without neurogenic claudication; M51.36 Other intervertebral disc degeneration, lumbar region; Z88.5 Allergy status to narcotic agent; Z88.8 Allergy status to other drugs, medicaments and biological substances; Z87.891 Personal history of nicotine dependence
CPT/HCPCS: 99211

== ENCOUNTER 2021-01-05 06:54 | Day surgery (SDC) | payer MEDICARE ==
[2020-12-29 14:35] VITALS: BMI 36.2
[2021-01-05] MEDS: LACTATED RINGERS 1,000 ML IV SCH ×2 (07:30→08:01)
[2021-01-05] MEDS ORDERED: LIDOCAINE 1% (10MG/ML) FOR IV START INTRADERMA ONE (07:30)
[2021-01-05 07:33] VITALS: RESP 16; TEMP 97.1
[2021-01-05] MEDS ORDERED: MIDAZOLAM 2 MG/2 ML VIAL ONE (08:00)
[2021-01-05] MEDS ORDERED: ROPIVACAINE 5MG/ML 20ML VIAL ONE (08:00)
[2021-01-05] MEDS ORDERED: methylPREDNISolone ACETATE 40 MG/ML 1 ML VIAL ONE (08:00)
[2021-01-05] MEDS ORDERED: fentaNYL (PF) 50 MCG/ML 2 ML AMP ONE (08:00)
--- NOTE | 2021-01-05 08:28 | P.PCN ---
Date of Procedure: 01/05/21 Procedure(s) Performed: PREOPERATIVE DIAGNOSIS: 1-Lumbar Spondylosis with Facet Arthropathy without myelopathy. 2- Lumber degenerative disc disease. POSTOPERATIVE DIAGNOSIS: 1- Lumbar Spondylosis with Facet Arthropathy without myelopathy. 2- Lumber degenerative disc disease. PROCEDURES : Bilateral Radiofrequency thermocoagulation, L3 , L4 , and L5 medial branch, with fluoroscopic guidance (fluoroscopy images available in the radiology department) ( to denervate the facet joint at L4-5 ,and L5-S1 levels ). ANESTHESIA: Monitored anesthesia care, as per anesthesia department. EBL: Minimal PROCEDURE INDICATION: The patient with low back pain secondary to lumbar facet arthropathy who had more than 50% relief of her pain with previous diagnostic lumbar medial branch block with bupivacaine. PROCEDURE DESCRIPTION / TECHNIQUE: The patient was seen and identified in the preoperative area. Risks, benefits, complications, including but not limited to risk of infection ,bleeding , allergic reactions to the medications and no complete pain releife , and alternatives were discussed with the patient, the patient agreed to proceed with the procedure and signed the consent. IV was started. Vital signs remained stable throughout the procedure. Patient was taken to the OR and time out was completed. The patient was placed in the prone position on the procedure table. The lumber area was prepped and draped in the usual sterile fashion. . Vital signs were closely monitored during the procedure .IV sedation was used during the procedure to decrease patients anxiety. Using AP and then oblique fluoroscopy, the ``eye of the Jose Miguel dog correspondi ng to the connection between the superior and transverse articular processes of right L3, L4, and L5 were identified, marked, and localized with 1% lidocaine. Subsequently, a 18 [id number] radiofrequency cannula with a 10-mm active tip was advanced guided by fluoroscopy to each of the``eyes of the Jose Miguel dog at right L3, L4, and L5. Each site then underwent sensory testing at 50 Hz and 0 to 1 volt and motor testing at 2.5 Hz and 0 to 3 volt with local stimulation, but no radicular symptoms down the legs. Thereafter each sites underwent radiofrequency thermocoagulation at 80 degrees celsius for 90 seconds after injecting 0.5 ml of PF Ropivacaine 1ml, then after the thermocoagulation done , 1 ml of the block solution containing Depo-Medrol 40 mg and 3 ml of Ropivacaine 0.5% was injected at the right L3 , L4 , and L5 , levels after negative aspiration of CSF and blood and with no paresthesias. Cannulas were retracted while injecting lidocaine 1% until the needle is out. The same procedure was repeated at the level of Left L3, L4, and L5 levels. At the end of the procedure, the skin was cleansed and bandages were applied. COMPLICATIONS: No acute complications. DISPOSITION / PLANS: The patient was placed in a supine position and transferred to the recovery area in a stable condition for observation and was discharged from the recovery room after meeting discharge criteria. Home discharge instructions given to the patient by the staff. The patient was reexamined prior to discharge. The patient will schedule a follow up in the clinic in 2-4 weeks.
[2021-01-05] MEDS ORDERED: IV FLUID CONTINUATION 1,000 ML IV ONE (08:41)
[2021-01-05 08:54] VITALS: BP 128/78; PULSE 78
--- NOTE | 2021-01-05 10:17 | FL ---
EXAMINATION TYPE: FL guided pain mgmt statistic DATE OF EXAM: 01/05/2021 HISTORY: Pain 20sec fluoro time,6 images to PACS
== END 2021-01-05 09:19 | disposition home or self-care (01) ==
LOC: ORPAIN 06:54
PROVIDERS: ATTEND Specialist
DX: M47.816 Spondylosis without myelopathy or radiculopathy, lumbar region (principal); I10 Essential (primary) hypertension; E78.5 Hyperlipidemia, unspecified; Z87.891 Personal history of nicotine dependence; Z86.711 Personal history of pulmonary embolism; Z79.890 Hormone replacement therapy; Z79.899 Other long term (current) drug therapy
CPT/HCPCS: 64635; 64636; J2250; J1030; J3010; J2795

== ENCOUNTER → 2021-02-05 | Outpatient (CLI) | payer MEDICARE ==
[2021-02-05 09:12] VITALS: BP 129/84; PULSE 74; RESP 18; TEMP 97.8
--- NOTE | 2021-02-05 09:48 | P.PN ---
Subjective Progress Note Date: 02/05/21 This is follow-up visit for this 70 years old female with a chronic history of severe low back pain, diagnosed with lumbar degenerative disc disease, lumbar spondylosis with lumbar facet arthropathy, lumbar foraminal stenosis , previously have done RFA of the medial branch lumbar area, to get good relief for a few weeks and currently she is having severe low back pain which is increased with activity , she is able to ambulate using a cane, she continued to work, she reporte that the pain is constant and increases with any activity, her MRI report reviewed and it showed that she had multilevel lumbar degenerative disc disease, multilevel lumbar spondylosis with lumbar facet arthropathy and multilevel foraminal stenosis, she denies any fever or night sweats, already tried physical therapy without any benefit and she is in Stretches and home exercise she already tried medication meloxicam, he continued to have severe pain Physical Examinations : -Constitutiona : Cooperative , not in acute distress . -HEENT : nech : supple , no Lymphadenopathy , normal thyroid size . : eyes : no ptosis , no icterus, no photophobia . - neurologic : Cranial nerve II to XII intact , no focal neurological deffecit . -psychatric : alert , oriented X 3 , appropriate affect , intact judgment and insight . -Lymphatic : no Lymphadenopathy . - musculoskeltal : Lumber spine moter stegnth lower extremities ,thigh and legs 5/5 Right side , 5/5 Left side deep tendon reflexes : normal Knee Jerk , normal ankle Jerk lumber facet Loading Test =positive Right , positive Left Range of motion of the lumbar spine Flexion 30 degrees, extension 10 degrees strait leg raising test = negative bilaterally Fabere test= negative bilaterally. mild tenderness over the Sacroiliac joint on the Right , and Left sides. MRI of the lumbar spine reviewed and it showed T11 lumbar degenerative disc disease multilevel foraminal stenosis multilevel lumbar facet arthropathy Assessment and plan=1-lumbar degenerative disc disease. 2-lumbar spondylosis with lumbar facet arthropathy. 3-lumbar spinal stenosis. Patient failed conservative treatment she tried physical therapy without any significant improvement of her symptoms she tries pain medication and said naproxen Mobic and Motrin previously without any significant improvement, currently on meloxicam She continued to have severe pain after RFA of the medial branch lumbar area Patient could benefit from lumbar epidural steroid injection at L5-S1 under fluoroscopy guidance Time with Patient: Less than 30 - PQRS measures = - Patient's medications are documented in the chart. -Tobacco use is positive, and counseling.Given. -Patient's has not received pneumococcal vaccine. -Advanced care planning discussed, patient not eligible. -Opiate contract not signed. -Pain positive and follow-up visit/procedure is scheduled. -Patient's blood pressure measured [ 129/84 ] , and documented in the record ,and patient will follow up with the primary care. -Patient's weight was measured and body mass index [ ] above the normal limits and counseling was done. and patient instructed to follow-up with the primary care physician. -Patient was not identified as an unhealthy alcohol user Objective - Vital Signs Vital signs: Vital Signs Temp 97.8 F 02/05/21 09:06 Pulse 74 02/05/21 09:06 Resp 18 02/05/21 09:06 BP 129/84 02/05/21 09:06 Pulse Ox 96 02/05/21 09:06
== END ==
LOC: PNWHC3 08:51
PROVIDERS: ATTEND Specialist
DX: M51.36 Other intervertebral disc degeneration, lumbar region (principal); M47.816 Spondylosis without myelopathy or radiculopathy, lumbar region; M48.061 Spinal stenosis, lumbar region without neurogenic claudication; Z87.891 Personal history of nicotine dependence; Z88.8 Allergy status to other drugs, medicaments and biological substances; Z88.6 Allergy status to analgesic agent
CPT/HCPCS: 99211

== ENCOUNTER 2021-03-06 08:56 | Day surgery (SDC) | payer MEDICARE ==
[2021-03-02 12:20] VITALS: BMI 36.0
[~2021-03-06 08:56] MED LIST changes: -IV FLUID CONTINUATION 1,000 ML IV ONE; -LACTATED RINGERS 1,000 ML IV ONE; +LACTATED RINGERS 1,000 ML IV SCH; -MIDAZOLAM 2 MG/2 ML VIAL ONE; -ROPIVACAINE 5MG/ML 20ML VIAL ONE; -fentaNYL (PF) 50 MCG/ML 2 ML AMP ONE; -methylPREDNISolone ACETATE 40 MG/ML 1 ML VIAL ONE
[2021-03-06 09:06] VITALS: TEMP 97.8
[2021-03-06] MEDS ORDERED: LACTATED RINGERS 1,000 ML IV ONE (09:07)
[2021-03-06] MEDS ORDERED: methylPREDNISolone ACETATE 40 MG/ML 1 ML VIAL ONE (09:30)
[2021-03-06] MEDS ORDERED: fentaNYL (PF) 50 MCG/ML 2 ML AMP ONE (09:30)
[2021-03-06] MEDS ORDERED: MIDAZOLAM 2 MG/2 ML VIAL ONE (09:30)
[2021-03-06] MEDS ORDERED: IOPAMIDOL M200 10 ML VIAL ONE (09:30)
--- NOTE | 2021-03-06 09:39 | P.PCN ---
Date of Procedure: 03/06/21 Procedure(s) Performed: PREOPERATIVE DIAGNOSIS: 1- Lumbar Degenerative Disc Diseases 2-Lumbar spondylosis with Facet arthropathy without myelopathy POSTOPERATIVE DIAGNOSIS: Same as preop diagnosis. PROCEDURE 1. Lumbar epidural steroid injection under fluoroscopic guidance at the L5-S1 level. (Fluoroscopy imaging was available in radiology department) 2. Lumbar epidurogram. ANESTHESIA: Local with 1% lidocaine 3 ml and , moderate sedation with intravenous Versed 2 mg ,and fentanyle 50 Mcg EBL: Minimal PROCEDURE INDICATION: The patient with low back pain and radiculitis symptoms unresponsive to conservative treatment. Fluoroscopy was used to optimize visualization of the needle placement and to maximize safety. PROCEDURE DESCRIPTION / TECHNIQUE: The patient was seen and identified in the preoperative area. Risks, benefits, complications including but not limited to infections ,bleeding ,allergic reaction to the medications ,nerve damage and not complete pain releife , and alternatives were discussed with the patient. The patient agreed to proceed with the procedure and signed the consent. IV was started, and vital signs were stable. Patient was taken to the OR and time out was completed. The patient was placed in the prone position on procedure table and a pillow was placed under the abdomen to reduce lumbar lordosis. The lumbosacral area was prepped and draped in the usual sterile fashion.ere closely monitored during the procedure. Co nscious sedation was used during the procedure to decrease patients anxiety. Vital signs was monitered during the entire procedure. Using anterior-posterior fluoroscopy, the L5-S1 interlaminar space was identified and the skin over this site was marked and then infiltrated with 1% lidocaine subcutaneously. Subsequently, a 20-gauge Tuohy epidural needle was inserted and advanced toward the epidural space using the ``Loss of resistance technique and guided by AP and lateral fluoroscopy. The correct needle position in the epidural space was verified with the injection of 2 mL of the water solub le contrast dye Isovue 200 contrast and observing an excellent epidurogram with the epidural spread of the dye, after negative aspiration for blood and CSF and in the absence of paresthesias. Again after negative aspiration, a 6 ml mixture containing 60 mg of Depo-medrol , and 2 ml of preservative free Normal Saline, and 2 ml of preservative free lidocaine 1% solution was injected and a washout of epidurogram was seen. Needle was withdrawn intact, skin was cleansed, and bandages were applied. COMPLICATIONS: None DISPOSITION / PLANS: The patient was placed in a supine position and transferred to the recovery area in a stable condition for observation. There was no evidence of lower extremity motor or sensory deficit after the procedure. Patient was discharged from the recovery room after meeting discharge criteria. Home discharge instructions were given to the patient by the staff. The patient was reexamined prior to discharge. The patient will schedule a follow up in the clinic in 2-4 weeks.
[2021-03-06] MEDS ORDERED: IV FLUID CONTINUATION 800 ML IV ONE (09:48)
[2021-03-06 09:51] VITALS: RESP 16
--- NOTE | 2021-03-06 09:55 | FL ---
EXAMINATION TYPE: FL guided pain mgmt statistic DATE OF EXAM: 03/06/2021 CLINICAL HISTORY: Low back pain. TECHNIQUE: Fluoroscopy. COMPARISON: None. FINDINGS: Fluoroscopic guidance was provided during pain relief procedure performed by Dr. Umanzor . A total of 2 seconds of fluoroscopic time was utilized during the procedure and 1 spot images are acquired. Single image acquired shows needle localization at lumbosacral junction epidural space wit h contrast injection. IMPRESSION: As Above.
[2021-03-06 10:27] VITALS: BP 132/73; PULSE 77
== END 2021-03-06 10:35 | disposition home or self-care (01) ==
LOC: ORPAIN 08:56
PROVIDERS: ATTEND Specialist
DX: M51.36 Other intervertebral disc degeneration, lumbar region (principal); M47.816 Spondylosis without myelopathy or radiculopathy, lumbar region
CPT/HCPCS: 62323; J2250; J1030; J3010; Q9966

== ENCOUNTER 2021-04-17 07:26 | Day surgery (SDC) | payer MEDICARE ==
[2021-04-13 14:23] VITALS: BMI 36.8
[2021-04-17] MEDS ORDERED: LACTATED RINGERS 1,000 ML IV ONE (07:45)
[2021-04-17 07:53] VITALS: RESP 16; TEMP 98.2
[2021-04-17] MEDS ORDERED: fentaNYL (PF) 50 MCG/ML 2 ML AMP ONE (08:02)
[2021-04-17] MEDS ORDERED: methylPREDNISolone ACETATE 40 MG/ML 1 ML VIAL ONE (08:02)
[2021-04-17] MEDS ORDERED: IOPAMIDOL M200 10 ML VIAL ONE (08:02)
[2021-04-17] MEDS ORDERED: MIDAZOLAM 2 MG/2 ML VIAL ONE (08:02)
[2021-04-17] MEDS ORDERED: LACTATED RINGERS 1,000 ML IV SCH (08:15)
--- NOTE | 2021-04-17 08:15 | P.PCN ---
Date of Procedure: 04/17/21 Description of Procedure: Procedure: 1. L5-S1 Epidural steroid injection under fluoroscopic guidance #2, 2. Lumbar epidurogram PREOPERATIVE DIAGNOSIS: Lumbar degenerative disc disease, and Lumbar radiculopathy. POSTOPERATIVE DIAGNOSIS: Lumbar degenerative disc disease, and Lumbar radi culopathy. SURGEON: Anirudh Ortega ANESTHESIA: Local with 1% lidocaine, and IV sedation: Versed 2 mg, and fentanyl 50 g. EBL: None. Specimen removed: None Fluoroscopic image: saved to electronic medical records PROCEDURE INDICATION: The patient had history of Lumbar degenerative disc disease and Lumbar radiculopathy. Patient had very good pain relief with the previous epidural steroid injection more than 70% pain relief for one month duration.. Failed to conservative therapy. Came here for repeat epidural steroid injection. PROCEDURE DESCRIPTION: The patient was seen and identified in the preoperative area. Risks, benefits, complications, and alternatives were discussed with the patient. The patient agreed to proceed with the procedure and signed the consent. IV was started, and vital signs were stable. Patient was taken to the procedure area, and time out was completed. The patient was placed in the prone position on procedure table and a pillow was placed under the abdomen to reduce lumbar lordosis. The lumbosacral area was prepped and draped in the usual sterile fashion. Critical pause was taken. Vital signs were closely monitored during the procedure. Using anterior-posterior fluoroscopy, the L5-S1 interlaminar space was identified, and skin and deeper tissues were localized with 1% lidocaine. Using anterior-posterior fluoroscopy, lateral fluoroscopy, and [id number] technique, a 20 gauge 3.5 Tuohy epidural needle entered the epidural space. After negative aspiration of CSF and blood with no paresthesias, 1 ml of [id number] contrast dye was injected and an excellent epidurogram was seen. Again after negative aspiration of CSF and blood with no paresthesias, 10 mL of block solution was injected into the epidural space. Block solution contained 40 mg of Depo-Medrol, and 9 mL of preservative-free normal saline. Needle was withdrawn intact, skin was cleansed, and bandages were applied. COMPLICATIONS: None. DISPOSITION / PLANS: The patient was placed in a supine position and transferred to the recovery area in a stable condition for observation. Patient was discharged from the recovery room after meeting discharge criteria. Home disch arge instructions given to the patient by the staff. The patient was reexamined prior to discharge. The patient will schedule a follow up in the clinic in 4 weeks.
[2021-04-17] MEDS ORDERED: IV FLUID CONTINUATION 850 ML IV ONE (08:17)
--- NOTE | 2021-04-17 08:33 | FL ---
Fluoroscopy HISTORY: Pain 2 seconds fluoroscopy time supplied to the referring clinician. 2 intraoperative C-arm images docume nt the procedure. See dictated report from anesthesia.
[2021-04-17 08:47] VITALS: BP 117/75; PULSE 68
== END 2021-04-17 08:52 | disposition home or self-care (01) ==
LOC: ORPAIN 07:26
DX: M43.16 Spondylolisthesis, lumbar region (principal); M51.16 Intervertebral disc disorders with radiculopathy, lumbar region; I10 Essential (primary) hypertension; E78.00 Pure hypercholesterolemia, unspecified; E03.9 Hypothyroidism, unspecified; Z88.5 Allergy status to narcotic agent; Z88.8 Allergy status to other drugs, medicaments and biological substances
CPT/HCPCS: 62323; J2250; J1030; J3010; Q9966; 99152

== ENCOUNTER → 2021-05-14 | Outpatient (CLI) | payer MEDICARE ==
[2021-05-14 08:46] VITALS: BP 144/73; PULSE 89; RESP 18; TEMP 97.8
--- NOTE | 2021-05-14 09:06 | P.PN ---
Subjective Progress Note Date: 05/14/21 Principal diagnosis: A 71 yr old female with a history of severe and chronic low back pain secondary to lumbar degenerative disc diseases and lumbar spondylosis with facet arthropathy presents today for a follow up for a 2nd LESI of the L5-S1 completed 04/17/2021. Pain level is currently at 0 /10. With bending, twisting and lifting the pain can increase to 5 /10 in intensity, in a dull/ achy character without radiation of pain. Pain is 90% alleviated with the recent LESI. Interventional pain procedures completed include 2nd LESI maribel L5-S1 on 04/17/21 Patient denies any side effects of the medication(s), denies excessive drowsiness or sleepiness, denies suicidal ideation and reports that the current pain medication is helping to control the pain and improve activities of daily living. Patient denies any motor or sensory deficits. Patient denies any fever or night sweats, denies any change in the bowel movements or urination. Physical Examination: -Constitutional: Cooperative. Not in acute distress . -HEENT: Neck is supple. No lymphadenopathy. No thyromegaly. Normal thyroid size. Eyes: No ptosis , no icterus, no photophobia. ENT: No auditory deficits. Normal oropharynx. No Thrush. - Respiratory: Chest clear to auscultations bilaterally. No wheezing. No rhonchi. - Cardiovascular: Regular rate and rhythm. S1 / S2 , no S3 , no S4. - Gastrointestinal: Abdomen soft no tenderness. Bowel sounds positive in all four quadrants. No organomegaly. - Genitourinary: Deferred. - Neurologic: Cranial nerve II to XII intact. No focal neurological deficits. - Psychatric: Alert & oriented x 3. Matching mood & appropriate affect. Judgment and insight intact. - Lymphatic: No Lymphadenopathy. - Musculoskeletal: Cervical spine: Muscle bulk/ tone/ strength in the bilateral upper extremities normal. Facet loading test cervical area positive. Lumbar spine: Motor bulk/ tone/ strength lower extremities , thigh and legs : 5/5 Deep tendon reflexes : Normal Knee Jerk. Normal Ankle Jerk . Lumbar Facet Loading Test positive Straight Leg Raise: positive at 30 degree right side/ left side Lyudmila test: positive right side / left side Range of motion: Flexion of the lumbar spine <90 degrees Range of motion: Extension of the lumbar spine <20 degrees Severe tenderness over the Sacroiliac joint: right side / left side Assessment and plan: Chronic low back pain secondary to lumbar degenerative disc disease , lumbar spondylosis with facet arthropathy without myelopathy Found significant relief with a series of 2 L5-S1 LESI completed within 2 months. May follow up as needed All patient questions answered MAPS reviewed and it was appropriate. I have spent 31 minutes on patient care today. Dr Umanzor was available by phone for the evaluation of this patient. The time was used to review the medica l records including relevant urine studies and Prescription history (MAPs), review of the available imaging, evaluation and examination of the patient, coordination of care with the medical staff and if applicable referring physicians, as well as creation of the medical record Objective - Vital Signs Vital signs: Vital Signs Temp 97.8 F 05/14/21 08:38 Pulse 89 05/14/21 08:38 Resp 18 05/14/21 08:38 BP 144/73 05/14/21 08:38 Pulse Ox 98 05/14/21 08:38 PQRS Measure Charge Sheet Mode of Arrival: Ambulatory - Pain Location None Non-Pharmacological Interventions: Chiropractic Treatment, Heat, Inactivity, Physical Therapy, Stretching Pharmacological Interventions: Block, Epidural, Medication, PRN Medication PQRS Narrative: Smoking Status Former smoker Blood Pressure 144/73 Pain Intensity [None] 0 Scale Used Numeric (1 - 10) Hx Alcohol Use (MH) Yes: OCCAS Home Medications: Ambulatory Orders Levothyroxine Sodium [Synthroid] 25 mcg PO DAILY 01/01/18 amLODIPine [Norvasc] 10 mg PO DAILY 01/01/18 Meloxicam 7.5 mg PO BID PRN 10/12/20 Calcium/Magnesium/Zinc [Sootpym-Xlooczftn-Dwem Tablet] 2 each PO DAILY 11/02/20 Multivitamins, Thera [Multivitamin (formulary)] 1 tab PO DAILY 11/02/20 Cannabidiol (Cbd) [Epidiolex] 50 mg PO BID PRN 11/21/20 Acetaminophen [Tylenol Extra Strength] 500 - 1,000 mg PO DIRECTED PRN 03/02/21 Loperamide HCl [Imodium A-D] 2 mg PO DIRECTED PRN 05/10/21
== END ==
LOC: PNWHC3 07:53
PROVIDERS: ATTEND Physician Assistant Medical
DX: M51.36 Other intervertebral disc degeneration, lumbar region (principal); M47.816 Spondylosis without myelopathy or radiculopathy, lumbar region; G89.29 Other chronic pain; Z87.891 Personal history of nicotine dependence; Z88.5 Allergy status to narcotic agent; Z88.8 Allergy status to other drugs, medicaments and biological substances
CPT/HCPCS: 99211

== ENCOUNTER → 2021-10-15 | Outpatient (CLI) | payer MEDICARE ==
--- NOTE | 2021-10-16 00:37 | MR ---
EXAMINATION TYPE: MR lumbar spine wo con DATE OF EXAM: 10/15/2021 COMPARISON: 09/11/2020 HISTORY: Low back pain that radiates down both legs, bilateral leg numbness. Multiplanar multiecho imaging of the lumbar spine without contrast. There is 10 mm anterior subluxation of L4 in relation L5. No definite spondylolysis. There is severe narrowing of the spinal canal at L4-5 due to subluxation deformity and ligament thickening. There is no lumbar paraspinal mass. No compression fracture. There is degenerative disc space narrowing at L3- 4 L4-5. The sacroiliac joints are intact. There is right-sided L4-5 neural foraminal narrowing due to the subluxation and facet arthropathy. There is some left side L3-4 neural foraminal narrowing. IMPRESSION: There is a degenerative first-degree L4-5 spondylolisthesis. There is moderately severe spinal stenos is at L4-5 that shows slight progression compared to old exam. No compression fracture.
== END | disposition home or self-care (01) ==
LOC: RADMRIMAIN 20:36
PROVIDERS: ATTEND Orthopaedic Surgery
DX: M43.16 Spondylolisthesis, lumbar region (principal); M48.061 Spinal stenosis, lumbar region without neurogenic claudication; M99.73 Connective tissue and disc stenosis of intervertebral foramina of lumbar region; M47.26 Other spondylosis with radiculopathy, lumbar region
CPT/HCPCS: 72148

== ENCOUNTER → 2021-10-15 | Outpatient (CLI) | payer MEDICARE ==
--- NOTE | 2021-10-15 10:50 | CT ---
EXAMINATION TYPE: CT lumbar spine wo con DATE OF EXAM: 10/15/2021 8:16 AM COMPARISON: MRI dated 09/11/2020 HISTORY: Low back pain CT DLP: 1089.1 mGycm Automated exposure control for dose reduction was used. Technique: Unenhanced CT of the lumbar spine was performed. Bone and soft tissue window settings are submitted as well as coronal and sagittal reconstructions. FINDINGS: Moderate dextroscoliosis of the lumbar spine with the apex at L3 level. Grade 1-2 anterolisthesis of L4 over L5 with minimal anterolisthesis of L3 over L4. No definite vertebral body collapse or acute d isplaced fracture. Degenerative changes of the lumbar spine with multilevel opposing endplate osteophytosis, degenerated discs and facet osteoarthropathy, most evident at L3-4 and L4-5 levels. L1-L2: Small focal bilateral foraminal disc protrusions, slightly larger on the left side, associated with left facet osteoarthropathy, causing no significant central spinal canal stenosis or neuroforam inal stenosis. L2-L3: Slightly degenerated disc with disc calcification, diffuse posterior disc bulge, more inclined to the left side, associated with facet osteoarthropathy (more on the left side) and ligamentum flav um hypertrophy, causing mild central spinal canal stenosis without significant neuroforaminal stenosi s. L3-L4: Degenerated disc with vacuum phenomenon, diffuse posterior disc bulge and small focal left for aminal protrusion, associated with bilateral facet osteoarthropathy (much more evident on the left si de), ligamentum flavum hypertrophy and posterior osteophytosis, causing mild central spinal canal garrett nosis and severe left neuroforaminal stenosis compressing the left L3 nerve root. L4-L5: Anterolisthesis as described above with diffuse posterior disc pseudodisc bulge associated wit h severe bilateral facet osteoarthropathy, marked ligamentum flavum hypertrophy and calcification as well as posterior osteophytosis, causing severe central spinal canal stenosis and moderate bilateral neuroforaminal stenosis compressing the corresponding L4 nerve root, slightly more on the right side. L5-S1: Mild diffuse posterior disc bulge associated with severe bilateral facet osteoarthropathy, cau sing no significant central spinal canal stenosis or significant neuroforaminal stenosis. Right hepatic lobe segment 7 16 mm cyst. A larger cyst is seen anteriorly, not completely included in the scan and measuring up to 3.2 cm. Questionable right upper pole renal cyst, suboptimally assessed by this CT scan. Scattered arterial atherosclerotic calcifications. No paraspinal lesion. IMPRESSION: Degenerative changes of the lumbar spine with multilevel DDD, central spinal canal stenosis and neuro foraminal stenosis as detailed above. Recommend clinical correlation and spine surgery consultation. Further MRI assessment can be considered if clinically required. Other findings as described above.
== END | disposition home or self-care (01) ==
LOC: RADCTMAIN 07:56
PROVIDERS: ATTEND Orthopaedic Surgery
DX: M47.816 Spondylosis without myelopathy or radiculopathy, lumbar region (principal); M51.36 Other intervertebral disc degeneration, lumbar region; M48.061 Spinal stenosis, lumbar region without neurogenic claudication; M99.73 Connective tissue and disc stenosis of intervertebral foramina of lumbar region
CPT/HCPCS: 72131

== ENCOUNTER → 2022-01-07 | Outpatient (CLI) | payer MEDICARE | END | disposition home or self-care (01) | LOC: LABPAT 07:58 | PROVIDERS: ATTEND Orthopaedic Surgery | DX: Z01.812 Encounter for preprocedural laboratory examination (principal); Z22.322 Carrier or suspected carrier of Methicillin resistant Staphylococcus aureus; M43.16 Spondylolisthesis, lumbar region | CPT/HCPCS: 87070 ==

== ENCOUNTER 2022-01-15 06:53 | Inpatient (IN) | payer MEDICARE ==
[2022-01-11 11:23] VITALS: BMI 36.7
--- NOTE | 2022-01-14 09:49 | P.HPOR ---
History of Present Illness H&P Date: 01/07/22 Chief Complaint: Low back pain, LE weakness [facility] History and Physical Date of :[birth year] Age: 71 year Height: 5'4" Weight: 210 lbs BMI: 36.05 kg/m2 Occupation: [employer] VAS: 2 CHIEF COMPLAINT: Low back pain DOI: Chronic DOS: None Duration of current treatment regiment: Since 2020 HISTORY: Xrays No new xrays taken in office Trauma or injury No Work-Related No Pain description aching, sharp. Location posterior Activity Modification yes , unable to stand or ambulate for extended periods of time. Hand Dominance right TREATMENTS COMPLETED: 6 weeks of PT completed? Month and Year of last PT date? 11/2020 Yes How many sessions? 12 Did it help? No, exacerbated her symptoms. Physician directed home exercise completed? yes , daily without improvements. Medications No List: None currently, has trialed pain medications previously without relief. Alternative interventions Chiropractic: No Massage therapy: No R.I.C.E: yes , daily without relief. Brace: No Injections Yes (lumbar JORDON on 04/17/2021) How many? 1 Did they help? yes , 1 week of relief RFA: yes, i 12/2020 without relief. SUBJECTIVE: Ms. Chaudhari returns to the office for a pre-operative review of the planned lumbar(L3-Pelvis) Decompression and Fusion. Since the time of the last appointment patient reports no changes to her symptoms, noting continued debility due to her symptoms. Overall the patient has seen a progressive increase in symptoms since their onset. Ms. Chaudhari symptoms are exacerbated with any standing, ambulation, or weightlifting, due to this they notes that it is increasingly difficult for Ms. Chaudhari to complete many of their daily tasks. Patient is having severe sleep disturbances as well (due to their ongoing pain and associated symptoms). Regarding treatments, the patient has previously trialed all abovementioned treatment modalities without relief. Patient denies trialing any other modalities at this time. For their symptoms, the patient has been taking no new medications but has trialed NSAID's and Narcotics in the past both without relief. Otherwise the patient denies any f/c/sob/cp, no incision concerns, no bladder or bowel retention/incontinence, no perineal numbness/tingling, and ambulates independently. HPI: The patient last returned to the office on 10/19/2021 for a recheck of her low back and for review of her MRI and CT ordered at the time of the last appointment. Since the time of the last appointment the patient reports that she has seen no changes to her symptoms. The patient continues to complain of severe symptoms that are significantly impacting her ability to perform most of her ADL's. Patient notes that she has had sharp low back pain with bilateral lower extremity radiculopathy (right worse than left). Her symptoms are exacerbated with most daily activities. Otherwise she denies any improvements with all conservative modalities trialed thus far and is ready to discuss operative interventions. Patient denies any f/c/sob/cp, no bladder or bowel retention/incontinence, no perineal numbness/tingling, and ambulates with the use of a walker. Ms. Chaudhari last presented to the office on 09/14/2021 for an evaluation of her low back. Patient reports symptoms ongoing for 4 years with no known injury or trauma to indicate an exact onset of her symptoms. With this she notes that over time these symptoms have worsened over the last 6 months, noting that she started her current treatment course in 2020. Since the onset of her symptoms the patient reports that she has trialed several rounds of injections through Dr. Umanzor, formal PT which she completed in 11/2020, a physician directed HEP daily for greater than 3 months, and previously trialed pain medications (not currently taking any) all without relief of her symptoms. Regarding her symptoms, the patient reports pain and aching/sharp pain radiating across the low back into the bilateral lower extremities, right worse than left, with associated numbness/tingling and burning pain. She denies any groin pain at this time. Patient notes that her symptoms are made worse with prolonged standing, sitting, and ambulation which is increasingly making completion of her daily tasks (primarily embroidering) challenging. She is having moderate sleep disturbances due to pain. Otherwise she denies any bladder or bowel retention/incontinence, no perineal numbness/tingling, and ambulates with the use of a cane. The patients' past social, medical, family, surgical history, as well as review of systems, have been reviewed. Please refer to the Neurosurgery History and Physical form that has been scanned in to our electronic medical record system. 16 points review of systems completed and as stated in HPI, all other systems reviewed are negative. Social History: Reviewed, see appropriate section of the chart for details. P3 Social History: Smoking: former smoker P3 Alcohol: currently drinks alcohol P3 Alcohol Amount: 4-5 drinks/wk Family History: Reviewed, see appropriate section of the chart for details. P2 Past Medical History: Reviewed, see appropriate section of the chart for details. [id number] Medications: Rx: amLODIPine 10 mg tablet Ref: 0 Rx: Calcium Magnesium Ref: 0 Rx: levothyroxine 25 mcg tablet Ref: 0 Rx: pravastatin Ref: 0 Rx: zinc Ref: 0 Rx: gabapentin 300 mg capsule Ref: 0 PHYSICAL EXAMINATION: General: Awake, alert, appropriate for age, in no acute distress. HEENT: No unusual neck masses around region of lateral neck triangle, thyroid, supraclavicular groove Heart: Regular rate and rhythm, normal S1, S2 and no murmur/gallop. Lungs: Clear to auscultation bilaterally with no use of accessory muscles. Extremities: Skin warm and dry without acute lesions, coloration, temperature, skin intact, no tenderness or erythema Integument: Hairy patches: ABSENT Dorsal skin dimples: ABSENT Cafe au lait spots: ABSENT Surgical incisions: NONE Palpation: Please see Pain drawing on Intake sheet for further detail. Midline spinal tenderness: Yes E6 Cervical Tenderness: No E6 Paralumbar tenderness: Yes E6 Parathoracic tenderness: No E6 Buttocks tenderness:Yes E6 Sacroiliac Tenderness: No POSTURAL and MUSCULO-SKELETAL EVALUATION: Coronal Balance: NEUTRAL Recumbent testing: Patient is able to lay flat on back Sagittal Balance: NEUTRAL Shoulder Profile: LEVEL Pelvic Girdle: LEVEL Neck ROM: UNRESTRICTED Lumbar ROM: RESTRICTED Shoulder ROM: Symmetrical Hip ROM: Symmetrical Knee ROM: Symmetrical Hands: Normal appearance, symmetrical Feet: Normal appearance, Symmetrical VASCULAR STATUS : LEFT RIGHT Wrist Pulses INTACT INTACT Pedal Pulses (Dors. pedis & post.tibialis) INTACT INTACT Color NORMAL NORMAL Edema Absent Absent NEUROLOGIC EXAMINATION: Mental Status:Awake and alert, fully oriented, with normal attention, concentration and memory, and fluent, appropriate speech. Cranial Nerves: I: Olfactory not tested. II: Visual acuity normal, no visual field deficit noted with confrontation. III,IV: Normal pupillary reflexes & intact extraocular movements without nystagmus. V,: Intact symmetrical facial sensation. VII: Intact symmetrical facial motor movement VIII: Hearing intact. IX,X: Intact gag, swallow, & normal voice. XI: Sternocleidomastoid, trapezius function intact. XII: Tongue midline with normal movements. L'hermitte's Sign: Negative / absent Spurling'Sign: Absent bilaterally. Cubital percussion test: Absent bilaterally. Alcazar-Tinel sign - Carpal region: Absent bilaterally. Straight Leg Raising: Absent bilaterally. Crossed straight leg raise: negative O8 MOTOR EXAM (0-5/5, N/T) UPPER EXTREMITY Shoulder Abduction Biceps Triceps Wrist Extension Hand [employer] Right 5/5 5/5 5/5 5/5 5/5 5/5 Left 5/5 5/5 5/5 5/5 5/5 5/5 LOWER EXTREMITY Hip Flexion Knee Extension Knee Flexion DF PF EHL FHL Right 5/5 5/5 5/5 4/5 4/5 4/5 4/5 Left 5/5 5/5 5/5 4/5 4/5 4/5 4/5 REFLEXES(0-4/2, NT)Upper ExtremityLower Extremity Right 2 2 Left 2 2 Pathological Reflexes RIGHT LEFT Alcazar's Absent Absent Clonus Absent Absent Babinski Absent Absent # Indicates mechanical impairment Muscle appearance: Symmetrical, without signs of atrophy or dystrophy. Sensory system (0-4, N/T) Test type RU VON RL LL Joint-Position 2 2 2 2 Vibration 2 2 2 2 Pain & LT sense 2 2 2 2 Dermatomal Deficit: None None L5 L3-5 Gait and Functional Evaluation: Ambulatory aids: Cane Romberg's test: Intact bilaterally Toe heel walk / heel-toe walk intact while maintaining satisfactory balance? No Squatting/straightening w/o assistance to a min of 60 degree knee flexion? No Single leg stance: not intact Trendelenburg sign negative bilaterally Hand and finger dexterity intact bilaterally? yes Disdiadochokinesis examination negative bilaterally? yes RADIOGRAPHIC STUDIES: XRay taken on 09/14/21 of Lumbar Spine and Pelvis: LL: 32 deg PI: 58 deg Coronal: 21 deg Levoscoliosis L4-5 spondylolisthesis Grade I-II, marginal mobility Severe spondylosis L1-S1 disc height collapse, facet arthropathy. No fractures noted No lesions noted. AP pelvis shows congruent pelvis with high Lt wing due to scoliosis CT scan without contrast from 10/15/2021 of the lumbar spine: This shows similar findings to JAMA with L4-5 spondylolisthesis, disc degeneration as well as collpase. Facet hypertrophy and artrhopathy contributing to stenosis and spondylosis. INCLUDEPICTURE P:\\\\ppart\\\\Files\\\\[id number]\\\\[id number]\\\\[id number]\\\\[id number]\\\\[id number]\\\\HUGN357\\\\IOZV413\\ \\XIDT737\\\\WTZX240\\\\JPEW673\\\\OZYR584\\\\QDZZ211\\\\ACDR726 \\\\XQKI345\\\\WSSU881\\\\QRNR467\\\\WXPD733\\\\IGSJ837\\\\KOGZ816\\\\[id number]\\\\[id number].PNG \\d MRI from 10/15/2021 of the lumbar spine: Severe spondylotic changes L2-S1 with Grade II spondylolistheis L4-5 with severe central and b/l foraminal stenosis. This is marginally reduced on this supine film. There is disc dessication L2-L5. L5-S1 shows mild spondylotic changes with moderate central stenosis and b/l foraminal stenosis. INCLUDEPICTURE P:\\\\ppart\\\\Files\\\\[id number]\\\\[id number]\\\\[id number]\\\\WGPC107\\\\TSNX795\\\\ZBRC229\\\\RNPX149\\ \\PACB026\\\\TZQB182\\\\BWKI551\\\\XMRB356\\\\LE VL001\\\\KETR748\\\\BOBY146\\\\HDLR142\\\\TXEX139\\\\UHDP868\\\\LYLW635\\\\AUHH996\\\\HZYA078\\\\[id number].PNG \\d Historical MRI from 2019 shows: these findings in some more detail including Gra de II L4-5 spondylolisthesis, disc height collapse L1-S1. Stenosis, severe L1-S1 with lumbar degenerative scoliosis changes. IMPRESSION: It was my pleasure to have seen and examined Sofia. I reviewed the patient's clinical syndrome, physical findings, and imaging studies during the appointment today. It is my impression that the patient has a diagnosis of. 1. Lumbar Degenerative Scoliosis 2.Neurogenic claudication 3. L4-5 Grade II spondylolisthesis 4. L1-S1 spondylosis, severe 5. Osteopenia 6. Bilateral lower extremity radiculopathy with weakness I outlined the natural course history without intervention and various interventional options. PLAN: Based on my findings I suggest the following course of action: -I discussed treatment options with the patient, including operative and non- operative options, and they have elected to proceed with the following surgical procedure: lumbar (L3-Pelvis) Decompression and Fusion (97646, 68242, 42645, 56356, 52401, 52562, 27817) The indications, risks, benefits, and alternatives to surgery were discussed with the patient at length. Specifically (but not limited to) the risks of infection, stiffness, recurrence of symptoms, need for revision surgery, local numbness, neurovascular injury, and blood clots were discussed. The patient's questions were answered. The decision to proceed was made. Consent will be obtained for the procedure. Spine Surgery Risk Review Ms. Chaudhari is presenting for evaluation of low back pain. It was my pleasure to have seen and examined Ms. Chaudhari. In our visit today we have had a chance to go over subjective complaints, physical examination findings and treatments including the natural course history without intervention and various interventional options. The patients imaging demonstrates: XRay taken on 09/14/21 of Lumbar Spine and Pelvis: LL: 32 deg PI: 58 deg Coronal: 21 deg Levoscoliosis L4-5 spondylolisthesis Grade I-II, marginal mobility Severe spondylosis L1-S1 disc height collapse, facet arthropathy. No fractures noted No lesions noted. AP pelvis shows congruent pelvis with high Lt wing due to scoliosis MRI from 10/15/2021 of the lumbar spine: Severe spondylotic changes L2-S1 with Grade II spondylolistheis L4-5 with severe central and b/l foraminal stenosis. This is marginally reduced on this supine film. There is disc dessication L2-L5. L5-S1 shows mild spondylotic changes with moderate central stenosis and b/l foraminal stenosis. Historical MRI from 2019 shows: these findings in some more detail including G rade II L4-5 spondylolisthesis, disc height collapse L1-S1. Stenosis, severe L1- S1 with lumbar degenerative scoliosis changes. On physical exam, Ms. Chaudhari demonstrates severely restricted lumbar range of motion with bilateral lower extremity radiuclopathy and weakness. Patient does also demonstrate right lower extremity L5 dermatomal deficits and L3-L5 dermatomal deficit on the left side. I have explained to the patient that as their condition progresses it will cause further neurological deficits and eventual paralysis. Based on the patients imaging, physical exam, and the rapid progression and disabling nature of their symptoms, at this time I recommend surgery in the form or a: lumbar (L3- Pelvis) Decompression and Fusion (81363, 65925, 11091, 61147, 14047, 14265, 84123). I discussed the risk and benefits of this procedure at length with Ms. Chaudhari. The patient agreed to considered pursuing the procedure abovementioned. Prior to surgery, she should follow up with her PCP (Cardio, ID, IM etc) for clearance. Questions were invited and answered, and the patient wishes to proceed as outlined below. Currently, I am recommendin.lumbar(L3-Pelvis) Decompression and Fusion (75280, 92403, 42656, 84859, 75371, 69731, 83269) 2.Follow up with PCP for surgical clearance 3.Review of surgical risks and benefits as well as an educational packet on the proposed surgical procedure. Risks: All surgical procedures come with inherent risks, including those related to positioning, anesthesia, intraoperative findings, and postoperative complications. It is important to understand that surgery does not come with any guarantee of a successful outcome as complications and adverse events are always possible. The patient was given a handout in office today discussing the surgical procedure and risks associated with the intervention, both of which were discussed with the patient. These risks include but are not limited to the following: * Experiencing same, different or even worse symptoms in back, neck, arms, or legs compared to before surgery. Requiring further surgery or other forms of treatment presently or at some time in the future at same or other levels of the intended spine surgery. On an extreme but fortunately relatively rare basis severe complication such as blindness, stroke, heart attack, temporary and/or permanent nerve injury, paralysis, coma, or may occur, sometimes without known explanation. Surgical complications may include but are not limited to risk of infection, fluid accumulation in the surgical dissection site, including a seroma or hematoma, that requires additional surgery, wound drainage, bleeding, new numbness or weakness, vision changes/loss, spinal fluid leakage, non-healing and/or infected incision, headaches, difficulty or inability to swallow, h oarseness, hemopneumothorax, pneumothorax, impotence, retrograde ejaculation, vaginal dryness; injury to nerves, spinal cord, blood vessels, lymphatics or other vital organs (i.e., bowel injury, injury to the great vessels); heterotopic bone formation; complications related to the hardware such as screws, rods, cages including misplaced hardware, device failure, instrumentation at the wrong spine level, hardware fracture/breakage, or hardware loosening; vertebral failure of the spinal column above or below the newly placed hardware; retained surgical instrumentations or devices and the need for further surgery. * Medical risks of the planned spine surgery include but are not limited to generalized Infections to the whole body or local areas outside of the surgical site (sepsis), heart attack, bleeding, anaphylaxis, meningitis, seizure, epilepsy, hearing loss, burn kim, laceration of the head or other areas of the body, bruising, hypersensitivity of the skin, bladder over dist ension; allergic reaction; shoulder injury related to positioning; fat, blood and air clots to other areas of the body like heart, lungs, brain; failure of internal organs such as lungs, kidneys, liver and excessive bleeding. If blood transfusions are necessary, note that transfusions may cause intolerance reactions such as anaphylaxis or other complex reactions. Despite best efforts, the results of spine surgery might not heal in terms of bone, soft tissues such as skin, fascia, ligaments, and joints. Additionally, in order to achieve best possible results, spine surgery may be carried out beyond the initially planned levels and involve decompression, fusion including insertion of hardware at levels other than the original intended area of surgical interest change some portions of the procedure in order to ensure the best possible outcomes. With spine surgery and spinal fusion, there are different off label uses of instrumentation (devices, implants and hardware) as well as biological substances (bone morphogenic proteins, demineralized bone matrix) as well as using extra bone from allograft sources (i.e. cadaver bone) or autograft (iliac crest bone, ribs, or the spine itself). The patient has been given information about these practices and their inherent risks and benefits. [facility] is an educational center that serves as a training facility for neurosurgical and orthopedic [employer] and Nursing students. Physician assistants are medically trained surgical providers who function in the outpatient, inpatient, and operating room setting under the direct supervision of the attending surgeon. [facility] has multiple operating rooms with single and overlapping rooms running daily. They currently function under the required guidelines as produced by the [facility] Finance Committee with regards to the overlapping rooms and will continue to comply with changes to this policy as they occur. The requirements include and are complied with as follows: (1) the critical portions of the overlapping rooms will not occur at the same time, (2) the attending physician will be physically present during the critical portions of the procedure and immediately available during the entire case, and (3) a back-up attending is designated should the primary attending not be immediately available. The patient has had a chance to review all the listed information, has been given print outs detailing this information, and has had all his/her questions answered to their satisfaction. It was my pleasure to have seen and examined Ms. Chaudhari. In our visit today we have had a chance to go over my understanding of our patient's current condition, the natural course history without intervention and various interventional options. Questions were invited and answered, and the patient wishes to proceed as outlined above. I have seen and examined the patient for 25 minutes and we have spent more than 50% of the time in repeat and detailed counseling about the patient's condition, its natural course history with out and as much as can be predicted with surgery and re-review of various surgical treatment options. In conclusion, Ms. Chaudhari requested we proceed with the above suggested surgery and are willing to accept risks and limitations of the suggested surgery as nature of the disease process and our best attempts at treatment for the condition. Thank you again for allowing us to be part of your patient's care. Please don't hesitate to contact me if you have any further questions. Signed and authenticated by: INCLUDEPICTURE P:\\\\ppart\\\\Files\\\\[id number]\\\\[id number]\\\\[id number]\\\\[id number]\\\\IQWX757\\\\UMAX221\\\\PCFR014\\ \\KCEQ878\\\\VARQ902\\\\XEFL131\\\\PMIP921\\\\ARCB311\\\\CQRY992\\\\ZVNH532\\\\WSAY176\\\\QQWA399 \\\\BEUF974\\\\ZDFP824\\\\YLXI882\\\\[id number]\\\\[id number].PNG \\d [facility] Complex [facility] Minimally Invasive Spine Surgery [address], [address] [place] [address] Past Medical History Past Medical History: Cancer, GERD/Reflux, Hearing Disorder / Deafness, Hyperlipidemia, Hypertension, Musculoskeletal Disorder, Osteoarthritis (OA), Pulmonary Embolus (PE), Thyroid Disorder Additional Past Medical History / Comment(s): Hx PE at age 28, hx skin cancer on forehead, lumbar spinal stenosis, DDD, numbness and tingling bilateral lower extremities, c/o bowel incontinence occasionally, minor hearing loss. History of Any Multi-Drug Resistant Organisms: None Reported Past Surgical History: Hysterectomy Additional Past Surgical History / Comment(s): SKIN CANCER REMOVED FROM FOREHEAD, COLONOSCOPY, SEVERAL D&C'S R/T 4 MISCARRIAGES, bilateral cataracts, Pain Clinic Procedures. Past Anesthesia/Blood Transfusion Reactions: Previous Problems w/ Anesthesia, Postoperative Nausea & Vomiting (PONV) Additional Past Anesthesia/Blood Transfusion Reaction / Comment(s): With general anesthesia PONV, & "may feel panicky." Past Psychological History: No Psychological Hx Reported Smoking Status: Former smoker Past Alcohol Use History: Occasional Additional Past Alcohol Use History / Comment(s): QUIT SMOKING AT AGE 27. Past Drug Use History: None Reported Additional Drug Use History / Comment(s): CBD solution prn. Aware no use 24 hrs prior to procedure. - Past Family History Brother(s) Family Medical History: Cancer, Skin Disorder Additional Family Medical History / Comment(s): Breast cancer. Sister(s) Family Medical History: Cancer Additional Family Medical History / Comment(s): Lung cancer, . Medications and Allergies Home Medications Medication Instructions Recorded Confirmed Type Levothyroxine Sodium [Synthroid] 25 mcg PO QAM 01/01/18 01/11/22 History amLODIPine [Norvasc] 10 mg PO QAM 01/01/18 01/11/22 History DULoxetine HCL [Cymbalta] 30 mg PO HS 01/11/22 01/11/22 History Omeprazole Magnesium [PriLOSEC OTC] 20 mg PO DAILY 01/11/22 01/11/22 History Pravastatin Sodium [Pravachol] 40 mg PO HS 01/11/22 01/11/22 History Allergies Allergy/AdvReac Type Severity Reaction Status Date / Time propoxyphene AdvReac DIZZINESS Verified 01/11/22 11:00 [From Jeromet-N 100] Lsbnruf-FAL-HtA Reductase AdvReac GENERALIZED Verified 01/11/22 11:00 Inhibitor BODY [Dfayyts-Zyf-Eaz Reductase ACHES/PAINS Inhibitor] elastic AdvReac Rash/Hives Uncoded 01/11/22 11:00 Physical Examination Osteopathic Statement: *. No significant issues noted on an osteopathic structural exam other than those noted in the History and Physical/Consult.
[~2022-01-15 06:53] MED LIST changes: +ACETAMINOPHEN TAB 500 MG TAB PO PRN; +DEXAMETHASONE SOD PHOSPHATE 4 MG/ML 1 ML VIAL IV ONE; +GABAPENTIN 300 MG CAP PO PRN; +HYDROmorphone 0.5 MG/0.5 ML SYRINGE IVP PRN; -LACTATED RINGERS 1,000 ML IV SCH; +ONDANSETRON 4 MG/2 ML VIAL IVP ONE; +ONDANSETRON 4 MG/2 ML VIAL IVP PRN; +TRANEXAMIC ACID IN NACL,ISO-OS 1,000 MG in SALINE 1 100ML.BAG IVPB PRN
[2022-01-15] MEDS: LACTATED RINGERS 1,000 ML IV SCH (07:47)
[2022-01-15 07:51] LABS: Basophils # (A) 0.1 k/uL (0-0.2); Basophils % (A) 1 %; Eosinophils # (A) 0.2 k/uL (0-0.7); Eosinophils % (A) 2 %; HCT 42.7 % (34.0-46.0); HGB 13.6 gm/dL (11.4-16.0); Lymphocytes # (A) 1.5 k/uL (1.0-4.8); Lymphocytes % (A) 18 %; MCH 26.6 pg (25.0-35.0); MCHC 31.8 g/dL (31.0-37.0); MCV 83.8 fL (80.0-100.0); Mean Platelet Volume 7.3; Monocytes # (A) 0.5 k/uL (0-1.0); Monocytes % (A) 7 %; Neutrophils % (A) 72 %; Platelet Count 348 k/uL (150-450); RDW 14.5 % (11.5-15.5); WBC 8.4 k/uL (3.8-10.6)
[2022-01-15 07:59] LABS: ALT 25 U/L (4-34); AST 24 U/L (14-36); African American GFR (CKD) >90 (>60 ml/min/1.73 sqM); Albumin 4.4 g/dL (3.5-5.0); Alkaline Phosphatase 147 U/L (38-126); Anion Gap 11 mmol/L; Blood Urea Nitrogen 17 mg/dL (7-17); Calcium 9.4 mg/dL (8.4-10.2); Carbon Dioxide 26 mmol/L (22-30); Chloride 103 mmol/L (98-107); Glucose 114 mg/dL (74-99); Non-African American GFR(CKD) >90 (>60 ml/min/1.73 sqM); Potassium 4.2 mmol/L (3.5-5.1); Sodium 140 mmol/L (137-145); Total Bilirubin 0.6 mg/dL (0.2-1.3); Total Protein 7.2 g/dL (6.3-8.2)
[2022-01-15 08:04] LABS: Partial Thromboplastin Time 23.3 sec (22.0-30.0); Prothrombin Time 10.6 sec (9.0-12.0)
[2022-01-15] MEDS ORDERED: MIDAZOLAM 2 MG/2 ML VIAL IVP ONE (08:35)
--- NOTE | 2022-01-15 08:43 | P.PN ---
Progress Note - Text Progress Note Date: 01/15/22 History and Physical UPDATE I have seen and examined the patient and reviewed the history and physical. There appear to be no significant changes in the patient's current medical status as outlined in the current History and Physical.
[2022-01-15] MEDS ORDERED: SODIUM CHLORIDE 0.9% 100 ML BAG ONE (09:26)
[2022-01-15] MEDS ORDERED: PROPOFOL 10 MG/ML 20 ML VIAL IV ONE (09:26)
[2022-01-15] MEDS ORDERED: MIDAZOLAM 2 MG/2 ML VIAL ONE (09:26)
[2022-01-15] MEDS ORDERED: KETAMINE 10 MG/ML 20 ML VIAL ONE (09:26)
[2022-01-15] MEDS ORDERED: LIDOCAINE 2% INJ 20 MG/ML (2 ML VIAL) ONE (09:26)
[2022-01-15] MEDS ORDERED: ONDANSETRON 4 MG/2 ML VIAL ONE (09:26)
[2022-01-15] MEDS ORDERED: TRANEXAMIC ACID IN NACL,ISO-OS 1,000 MG/100 ML BAG ONE (09:26)
[2022-01-15] MEDS ORDERED: ceFAZolin 1,000 MG VIAL ONE (09:26)
[2022-01-15] MEDS ORDERED: SUCCINYLCHOLINE CHLORIDE 200 MG/10 ML VIAL IV ONE (09:26)
[2022-01-15] MEDS ORDERED: ROCURONIUM 10 MG/ML (5 ML VIAL) IV ONE (09:26)
[2022-01-15] MEDS ORDERED: HYDROmorphone (PF) 1 MG/ML ONE (09:26)
[2022-01-15] MEDS ORDERED: PHENYLEPHRINE-0.9% NACL SYG 1,000 MCG/10 ML SYRINGE ONE (09:26)
[2022-01-15] MEDS ORDERED: fentaNYL (PF) 50 MCG/ML 2 ML AMP ONE (09:26)
[2022-01-15] MEDS ORDERED: ePHEDrine 50 MG/ML 1 ML VIAL ONE (09:26)
[2022-01-15] MEDS ORDERED: THROMBIN (BOVINE) 5,000 UNIT VIAL TOPICAL ONE (09:29)
[2022-01-15] MEDS ORDERED: GENTAMICIN 40 MG/ML 2 ML VIAL IRRIGATION ONE (09:29)
[2022-01-15] MEDS ORDERED: GELATIN SPONGE,ABSORB (LARGE) 1 EACH SPONGE TOPICAL ONE (09:29)
[2022-01-15] MEDS ORDERED: TRANEXAMIC ACID IN NACL,ISO-OS 1,000 MG in SALINE 1 100ML.BAG IVPB ONE (09:30)
[2022-01-15] MEDS ORDERED: ceFAZolin 3,000 MG in SODIUM CHLORIDE 0.9% IRRIGATIO 3,000 ML IRRIGATION ONE (10:27)
--- NOTE | 2022-01-15 10:34 | P.ANPRN ---
Procedure Note - Anesthesia - Invasive Line Right Arterial Line Date of Procedure: 01/15/22 Time of Procedure: 09:00 Location of Patient: PreOp Preparation: Sterile Prep, Sterile Dressing Arterial Line Location: Radial Ultrasound Used: No Purpose - Visualization and Identification of Vasculature: No Image Stored and Saved: No Narrative: Central line placement per sterile protocol utilized.
[2022-01-15] MEDS ORDERED: LACTATED RINGERS 1,000 ML IV ONE ×2 (11:36→14:30)
[2022-01-15] MEDS ORDERED: VANCOMYCIN 1,000 MG VIAL MISCELLANE ONE (13:46)
[2022-01-15] MEDS ORDERED: MAGNESIUM HYDROXIDE 2,400 MG/10 ML CUP PO PRN (14:10)
[2022-01-15] MEDS ORDERED: CYCLOBENZAPRINE 5 MG TAB PO PRN (14:10)
[2022-01-15] MEDS ORDERED: HYDROmorphone 0.5 MG/0.5 ML SYRINGE IM PRN (14:17)
[2022-01-15] MEDS ORDERED: HYDROmorphone 1 MG/ML 1 ML SYRINGE IM PRN (14:17)
--- NOTE | 2022-01-15 15:14 | FL ---
Fluoroscopy HISTORY: Lumbar fusion 57 seconds fluoroscopy time supplied to the referring clinician. 20 intraoperative C-arm images docu ment the procedure. See dictated report from orthopedic surgery.
[2022-01-15] MEDS: SODIUM CHLORIDE 0.9% 1,000 ML IV SCH (17:17)
[2022-01-15] MEDS: GABAPENTIN 300 MG CAP PO SCH ×2 (17:17→21:08)
--- NOTE | 2022-01-15 18:57 | P.CONS ---
History of Present Illness - Reason for Consult Consult date: 01/15/22 Medical Management Requesting physician: Antonio Garvin - History of Present Illness History of Presenting Illness: Patient is a very pleasant 71-year-old female with a past medical history of hypertension, hypothyroidism, hyperlipidemia, anxiety/depression, and GERD. She is currently admitted under orthospine surgical team status post lumbar spine fusion. We have been consulted for medical management throughout patient's hospitalization. Patient seen and fully evaluated at bedside upon return from surgery. Currently patient reports postoperative pain is controlled. She is tolerating ice chips and clear liquid oral intake. Patient denies having any postoperative nausea or vomiting. Vital signs are unremarkable with blood pressure 116/75, heart rate 75, respiratory rate 18, and SpO2 of 97% on 3 L O2 via nasal cannula. Patient denies having any history of DVT or PE. She denies having any headache, lightheadedness, dizziness, chest pain, palpitations, shor tness of breath, or any other complaints at this time. Review of systems: Pertinent positives and negatives as discussed in HPI, a complete review of systems was performed and all other systems are negative. Physical exam: Vital signs reviewed and stable. Obese. General: Nontoxic, no distress and appears stated age. Derm: Skin warm and dry, normal coloration for ethnicity. Head: Atraumatic, normocephalic and symmetric. Eyes: EOMs intact, no lid lag, and anicteric sclera Mouth: no lip lesions, mucus membranes moist Cardiovascular: regular rate and rhythm with normal S1S2, no murmur, positive posterior tibial pulses bilaterally, and cap refill < 2 seconds. Lungs: Respirations even, regular, and unlabored on room air. Lungs CTA bilaterally, no rhonchi, no rales, no wheezing, and no accessory muscle usage. GI/: Obese abdomen soft, nontender to palpation, no guarding, no appreciable organomegaly. Rivas catheter in place. Ext: ROM intact. No gross muscle atrophy, no edema, no contractures Neuro: Speech clear, face symmetrical and CN II-XII grossly intact with no noted focal neuro deficits Psych: Alert and oriented to person, place, time, and situation. Appropriate and pleasant affect. Assessment and Plan of Care: Status post lumbar spine fusion -Management per primary admitting orthospine surgical team including DVT prophylaxis, pain management, dressing/strain management, weightbearing, and PT/OT. Hypertension -Monitor vital signs and continue daily medication regimen with amlodipine Hypothyroidism -Continue daily medication regimen with levothyroxine. Hyperlipidemia -Continue daily medication regimen with pravastatin. Anxiety/depression -Continue daily medication regimen with Cymbalta. GERD -Continue daily medication regimen with pravastatin. Thank you for allowing us to participate in the care of this pleasant patient. Do not hesitate to contact us with questions. Someone can be reached from the [facility] hospitalist group all hours of the day at [phone] or via Triage.. Past Medical History Past Medical History: Cancer, GERD/Reflux, Hearing Disorder / Deafness, Hyp erlipidemia, Hypertension, Musculoskeletal Disorder, Osteoarthritis (OA), Pulmonary Embolus (PE), Thyroid Disorder Additional Past Medical History / Comment(s): Hx PE at age 28, hx skin cancer on forehead, lumbar spinal stenosis, DDD, numbness and tingling bilateral lower ex tremities, c/o bowel incontinence occasionally, minor hearing loss. History of Any Multi-Drug Resistant Organisms: None Reported Past Surgical History: Hysterectomy Additional Past Surgical History / Comment(s): SKIN CANCER REMOVED FROM FOREHEAD, COLONOSCOPY, SEVERAL D&C'S R/T 4 MISCARRIAGES, bilateral cataracts, Pain Clinic Procedures. Past Anesthesia/Blood Transfusion Reactions: Previous Problems w/ Anesthesia, Postoperative Nausea & Vomiting (PONV) Additional Past Anesthesia/Blood Transfusion Reaction / Comm: With general anesthesia PONV, & "may feel panicky." Past Psychological History: No Psychological Hx Reported Smoking Status: Former smoker Past Alcohol Use History: Occasional Additional Past Alcohol Use History / Comment(s): QUIT SMOKING AT AGE 27. Past Drug Use History: None Reported Additional Drug Use History / Comment(s): CBD solution prn. Aware no use 24 hrs prior to procedure. - Past Family History Brother(s) Family Medical History: Cancer, Skin Disorder Additional Family Medical History / Comment(s): Breast cancer. Sister(s) Family Medical History: Cancer Additional Family Medical History / Comment(s): Lung cancer, . Medications and Allergies Home Medications Medication Instructions Recorded Confirmed Type Levothyroxine Sodium [Synthroid] 25 mcg PO QAM 01/01/18 01/15/22 History amLODIPine [Norvasc] 10 mg PO QAM 01/01/18 01/15/22 History DULoxetine HCL [Cymbalta] 30 mg PO HS 01/11/22 01/11/22 History Omeprazole Magnesium [PriLOSEC OTC] 20 mg PO DAILY 01/11/22 01/15/22 History Pravastatin Sodium [Pravachol] 40 mg PO HS 01/11/22 01/11/22 History Calcium Carbonate [Calcium] 600 mg PO ONCE 01/15/22 01/15/22 History Cholecalciferol [Vitamin D3 (25 25 mcg PO DAILY 01/15/22 01/15/22 History Mcg = 1000 Iu)] DULoxetine HCL [Cymbalta] 60 mg PO 01/15/22 History Gabapentin 600 mg PO BID 01/15/22 01/15/22 History Hydrocortisone Oint 1 applic TOPICAL BID 01/15/22 01/15/22 History [Hydrocortisone 2.5% Oint] Melatonin 1 mg PO HS 01/15/22 01/15/22 History Allergies Allergy/AdvReac Type Severity Reaction Status Date / Time propoxyphene AdvReac DIZZINESS Verified 01/15/22 07:18 [From Darjaysoncet-N 100] Nbawubt-NHE-UyQ Reductase AdvReac GENERALIZED Verified 01/15/22 07:18 Inhibitor BODY [Njocgzu-Azs-Huv Reductase ACHES/PAINS Inhibitor] elastic AdvReac Rash/Hives Uncoded 01/15/22 07:18 Physical Exam Vitals: Vital Signs Temp Pulse Resp BP Pulse Ox 01/15/22 18:32 97.7 F 75 18 116/75 97 01/15/22 17:22 73 16 133/72 95 01/15/22 17:07 78 16 140/66 96 01/15/22 16:52 79 16 131/62 94 L 01/15/22 16:37 76 16 133/65 94 L 01/15/22 16:22 76 16 122/65 96 01/15/22 16:10 76 16 124/66 100 01/15/22 15:55 76 16 113/57 100 01/15/22 15:41 80 14 113/58 96 01/15/22 07:24 97.0 F L 75 16 154/68 98 Intake and Output 01/15/22 01/15/22 01/15/22 06:59 14:59 22:59 Intake Total 2751 200 Output Total 1210 100 Balance 1541 100 Intake: IV 2751 200 Output: Urine 710 100 Estimated Blood Loss 500 Other: Weight 97.3 kg Results CBC & Chem 7: 01/15/22 07:35 01/15/22 07:35 Labs: Abnormal Lab Results - Last 24 Hours (Table) 01/15/22 Range/Units 07:35 Glucose 114 H (74-99) mg/dL Alkaline Phosphatase 147 H (38-126) U/L
[2022-01-15] MEDS: HYDROcodone/APAP 5-325MG 1 EACH TAB PO PRN (19:23)
[2022-01-15] MEDS: DULoxetine HCL 30 MG CAPSULE.DR PO SCH (21:08)
[2022-01-15] MEDS: PRAVASTATIN SODIUM 40 MG TAB PO SCH (21:08)
[2022-01-15] MEDS: MELATONIN 1 MG TAB PO SCH (21:08)
[2022-01-16] MEDS: HYDROcodone/APAP 5-325MG 1 EACH TAB PO PRN (02:56)
[2022-01-16] MEDS: LEVOTHYROXINE 25 MCG TAB PO SCH (06:04)
[2022-01-16] MEDS: SODIUM CHLORIDE 0.9% 1,000 ML IV SCH ×2 (06:04→15:40)
[2022-01-16] MEDS: HYDROmorphone 1 MG/ML 1 ML SYRINGE IVP PRN ×4 (07:26→22:00)
--- NOTE | 2022-01-16 08:13 | P.OP ---
Date of Procedure: 01/15/22 Preoperative Diagnosis: 1. L3-S1 spondylosis with severe stenosis 2. L4-5 grade I spondylolisthesis 3. Neurogenic claudication 4. Mechanical low back pain 5. LE weakness, LE radiculopathy with paresthesias Postoperative Diagnosis: 1. L3-S1 spondylosis with severe stenosis 2. L4-5 grade I spondylolisthesis 3. Neurogenic claudication 4. Mechanical low back pain 5. LE weakness, LE radiculopathy with paresthesias Procedure(s) Performed: Posterior midline exposure 1. L3-4 posteriolateral and interbody fusion (35814) 2. L4-5 posteriolateral and interbody fusion (76669) 3. L5-S1 posteriolateral and interbody fusion (36811) 4. L4-5 intradiscal osteotomy for deformity correction (3 column osteotomy) (35133) 5. L3-4 and L5-S1 bilateral laminectomy, complete facetectomy and foraminotomy (57108, 00107) 6. L4-5 bilateral laminectomy, complete facetectomy far lateral decompression and foraminotomy past foraminal ligament for far lateral stenosis and deformity (56702) 7. Insertion of biomechanical device L3-S1 ([id number]) 8. Segmental instrumentation L3-S1 (44913) 9. Radius App 3D intraoperative navigation for placement of screws and hardware (87671) 10. Use of intraoperative neuromonitoring Implants: [place] open screw and wilfrido system -2 cross links Mireille -Globus Rise Cages x3 7-13 15 and 10 deg lordotic -Autograft -Allograft -Ifactor -MagnatOs Anesthesia: ALECIAA Surgeon: Antonio Garvin Dump Truck Driver [address]: Nayely Noland (Was present and assisted with positionoig, exposure, screw placment, decompression and cage placement. ) Dump Truck Driver [address]: Nilson Aquino (Was present and assisted with Wilfrido placement, grafting, fusion, drain placement, closure and dressing placement) Estimated Blood Loss (ml): 500 IV fluids (ml): 2,200 Urine output (ml): 250 Pathology: none sent Condition: stable Disposition: PACU Indications for Procedure: 71 yo female with long history of low back and leg pain has been treated by the [facility] for some time now. She has undergone multiple different conservative measures including PT, HEP, Rx and OTC meds, injections. None of which have given her lasting relief. She was found to have severe stenosis, neurogenic clauidication as well as weakness, radiculopathy and spinal deformity that is affecting her day to day living to the point now where she can only walk short distances before needing a break due to cramping and pain in her legs and buttock region. We discussed all options for surgical and non surgical treatment and she has elected for surgical treatment in the form of deco mpression and fusion. She is ready and willing to proceed. Description of Procedure: The patient was seen and examined in the preoperative area. All preoperative protocols were followed. Informed consent was obtained risks and benefits of the procedure were discussed at length. Risks including bleeding infection damage to the surrounding tissue and risk of reoperation were discussed with the patient. Risk of anesthesia up to and including was a discussed with the patient. These are outlined in the risk review. They were willing to accept these risks and all of the risks of surgery. The patient was given a weight- based dose of antibiotics in the form of 2g Ancef re-dosed ever 4 hrs. The patient was seen and evaluated by the anesthesia team who deemed them fit for surgery. The site was marked, the patient was willing to proceed with the procedure. The patient was transferred to the operative suite by the Department of anesthesia. They were then drifted off to sleep by the department anesthesia and GETA was performed. The patient tolerated this well. Rivas catheter was placed by nursing staff, atraumatically. Once confirmation of lines and ventilation the patient was transferred to a prone Amos table very carefully. All bony prominences including wrists, elbows, axilla, chest, hips, and thighs, and feet were padded very well. Special attention was paid to the genitalia and these were padded accordingly. SCDs were placed on bilateral lower extremities and were connected. Arms were well padded and placed on arm boards up and out in the 90/90 position. Once in position, again we confirmed good ventilation capabilities and that lines were running appropriately. The patient's Lumbosacral spine was then exposed. 1010s were placed outlining the incision site. Standard alcohol was used to clean the incision site and allowed to dry. C-arm was used to biomark the patient and confirm level for incision which was marked with a skin marker. Operative briefing was performed with all teams and everyone in agreement to proceed. The patient was then prepped and draped in a normal sterile fashion. Timeout was then performed and all parties were in agreement with the procedure to be performed. Midline skin incision was made over the previously biomarked area and dissection taken down to the lumbosacral facia which was then identified and cleaned with a torres. Midline faciiotomy made over the SP of L2-S1. Lateral image confirmed levels for operation with penfield 4 at pars of L3. Subperiosteal dissection taken down over the lamina of these levels and out to the TPs which were then decorticted with a high speed akiko. Hemostasis achieved and wound was irrigated. SP tracker for Radius App 3D navigation was then placed on S1 and secured. 3D Zhiem spin was then registered. We then confirmed accuracy of the navigation. We then proceeded with screw placement. Navigated high speed akiko was used to make aircraft pilot hole in pedicle starting point, a navigated awl-tap was then used to access the pedicle and VB. This was then measured and felt with a ball probe to ensure within the 4 brenner of pedicle. Once this was accomplished navigated screw screw driver operator used to place the measured screw. This was done bilateral from L3-S1. 6.5 mm measured screws placed in L3 and L4. 7.5 mm measured screws placed in L5 and S1. All screws were then confirmed in good location on live flouroscopy AP and lateral and all screws were safe. Screws were then tested with IONM and all tested above 15 mA. We then proceeded with decompression and interbody fusion. Starting at L5-S1, bilateral laminectomy, complete facetectomy and foraminotomy was performed using high speed akiko, kerrison rongure, and upbiting curette. There was exhuberent ligamentous tissue and scar tissue around the nerves which was meticulously cleaned. Hemostasis achieved. We then accessed the disc space and while protecting neural elements directed an osteotome anteriorly into the L5-S1 disc space under lateral flouroscopy. We then removed disc with pituitary and performed sequential shaving until good endplate contact and bleeding was noted. Down biting curette was then used to further scrape cartilage from the endplates and remove disc from contralateral side. Pituitary was then used to remove disc fragments. The disc space was irrigated and inspected. Good bleeding endplates and complete discectomy accomplished. A mixture of Ifactor, autograft and carlos allograft was then placed anterior within the disc space and impacted anterior with a blunt trial. A Globus Rise cage was then selected and while protecting neural elements impacted into position under image guidance. Once in position, the cage was then expanded to meet endplates. The cage was tested and was stable. Java Application Engineer removed and cage inspected and in good position. Hemostasis again achieved. Area irrigated and protected with a mina. Attention then drawn to the L4-5 interspace. Using high speed akiko and kerrison rongure and curette bilateral laminectomy, complete facetectomy and far lateral foraminotomy and decompression was achieved. This was transfacet to include part of the pedicle as there was severe collapse and stenosis at this level b/l. Hemostasis achieved. We then accessed disc space bilaterally and protected neural elements. Raptor osteotome was then used to perform and intradiscal Osteotomy for deformity correction and complete discectomy. The osteotomy under image guidance was passed into the anterior 1/3 of vertebal body of L4. This fragment was then removed we then performed sequential shaving until good endplate contact achieved and bleeding endplates. Downbiting curette used for far lateral decompression and disc removal as well as pituitary and kerrison. Free fragments removed and area inspected good decompression and complete discectomy achieved. Space irrigated. Mixture of Ifactor, Autograft and carlos placed anterior within the disc space and impacted anteriorly. A Rise cage was then selected and while protecting neural elements was placed with image guidance. Once in position, it was expanded to meet endplates and then used to regain lordosis and height. This was accomplished and the cage was stable. Java Application Engineer removed. Hemostasis achieved. Area irrigated. We then proceeded with L3-4 decompression and interbody fusion as described for L5-S1. Decompression and discectomy performed as described. Cage was selected and placed again under images guidance and in good position. Images were then taken in AP and Lateral and confirmed good placement of all cages and screws with good reduction of lordosis and height. Wound was irrigated. Rods were then selected and bent accordingly. They were then placed first in S1 and L5 b/l and then sequentially reduced b/l into L4 and L3 to allow for reduction of listhesis under lateral imaging. This was achieved. The set screws were then placed and final tightened. 2 cross links selected, placed and final tightented. Wound was then copiously irrigated with 3L ancef irrigation, 3L gentamycin irrigation and 3L NSS. Surgicel was then placed over the dura for protection. Mixture of MagnatOs, autograft and allograft was made and placed in the posteriolateral gutters from L3-S2. This was impacted down and covered with surgicel. A deep drain was placed. 2 g Vanco powder placed in wound. We then proceeded to closure. #1 PDS used in the facia for watertight closure. 0PDS used in deep subq tissue. 0Vicryl and 2-0 Vicryl used in superficial Subq tissue and jamaal in the skin. Wound edges approximated well. Wound was then cleaned and dressed sterilly with Optifoam dressing, drain sponge and tegaderm. The patient was transferred back to their hospital bed atraumatically. Drain continued to hold suction and were in good position. Patient was then awakened and extubated by the department of anesthesia having tolerated the procedure very well with no complications. They were transferred to the postoperative care unit in stable condition.
[2022-01-16] MEDS ORDERED: amLODIPine 10 MG TAB PO SCH (09:00)
[2022-01-16] MEDS: HYDROcodone/APAP 10-325MG 1 EACH TAB PO PRN ×2 (09:23→15:41)
[2022-01-16 10:27] LABS: Basophils # (A) 0.01 X 10*3/uL (0.00-0.10); Basophils % (A) 0.1 %; Eosinophils # (A) 0.01 X 10*3/uL (0.04-0.35); Eosinophils % (A) 0.1 %; HCT 33.5 % (37.2-46.3); HGB 10.3 g/dL (12.0-15.0); Immature Grans, Automated 0.5 %; Lymphocytes # (A) 1.35 X 10*3/uL (0.90-5.00); Lymphocytes % (A) 10.3 %; MCH 26.2 pg (27.0-32.0); MCHC 30.7 g/dL (32.0-37.0); MCV 85.2 fL (80.0-97.0); Mean Platelet Volume 10.2 fL (9.5-12.2); Monocytes # (A) 0.97 X 10*3/uL (0.20-1.00); Monocytes % (A) 7.4 %; NRBC Per 100 WBC 0 /100 WBCS (0.0-0.0); Neutrophils % (A) 81.6 %; Platelet Count 242 X 10*3/uL (140-440); RBC 3.93 X 10*6/uL (4.10-5.20); RDW 15.4 % (11.5-14.5)
--- NOTE | 2022-01-16 10:44 | P.PN ---
Subjective Progress Note Date: 01/16/22 Principal diagnosis: L3-S1 spondylosis with severe stenosis 2. L4-5 grade I spondylolisthesis 3. Neurogenic claudication 4. Mechanical low back pain 5. LE weakness, LE radiculopathy with paresthesias Patient was seen at bedside this morning sitting up in chair. Patient says she has been up and walking several times since surgery yesterday. Patient says she is not having any numbness or tingling in the lower extremities at this time. Patient says she does have a walker for home. Patient says she does not have an LSO brace yet. Patient says most the pain is located in her low back and denies any radiation. Patient says she has urinated since surgery yesterday. Patient says she has had something to eat. She says she has not had bowel movement yet, but she has been passing gas. Patient denies chest pain, fever, shortness breath, nausea, vomiting, change in vision, loss of bowel/bladder control. Objective - Vital Signs Vital signs: Vital Signs Temp 98.2 F 01/16/22 07:26 Pulse 86 01/16/22 07:26 Resp 16 01/16/22 07:26 BP 107/67 01/16/22 07:26 Pulse Ox 91 L 01/16/22 07:26 FiO2 Intake & Output 01/15/22 01/16/22 01/16/22 18:59 06:59 18:59 Intake Total 2951 Output Total 1310 1490 90 Balance 1641 -1490 -90 Weight 97.3 kg 97.3 kg Intake: IV 2951 Output: Drainage 190 90 Right Lower Medial Back 190 90 Urine 810 1300 Estimated Blood Loss 500 Other: Voiding Method Indwelling Catheter # Bowel Movements 0 - Exam Optifoam dressing present on lumbar spine currently. Drain present with serosanguineous output. 200 cc overnight. Giorgi are well aligned and intact at this time. Negative for any fluctuance/purulence over incision. Incision appears to be healing at this time. Minimal erythema. Patient does have sensation in bilateral lower and upper extremities at this time. Sensation is intact bilaterally. Patient has full range of motion bilateral upper extremities. Patient does have good range of motion bilateral lower extremities on exam. Motor exam 4/5 in resisted dorsi and plantarflexion of the ankles bilaterally. 5/5 in all other major motor groups. Dorsalis pedis pulses intact bilaterally. Radial pulses intact, 2+ bilaterally. Cap refill under 3 seconds in digits upper extremities. Negative Homans bilaterally. - Labs CBC & Chem 7: 01/16/22 06:52 01/15/22 07:35 Assessment and Plan Assessment: 1. L3-S1 spondylosis with severe stenosis 2. L4-5 grade I spondylolisthesis 3. Neurogenic claudication 4. Mechanical low back pain 5. LE weakness, LE radiculopathy with paresthesias Postoperative day 1 status post [id number] decompression and fusion Plan: 1. L3-S1 spondylosis with severe stenosis; L4-5 grade I spondylolisthesis; Neurogenic claudication; Mechanical low back pain; LE weakness, LE radiculopathy with paresthesias - L3-Pelvis decompression and fusion performed yesterday, 01/15/2022. patient at bedside sitting in chair. Drain output 200 cc serosanguineous fluid overnight. Drain will remain in at this time. Patient needs to remain in hospital for the next 1-2 nights due to drain output, pain control and therapy. Patient does need LSO brace to help with stability when up and about. script signed for LSO brace 2. Appreciate medical management 3. Pain management - [place]; Flexeril; gabapentin; IV pain meds only when necessary 4. DVT prophylaxis - mechanical 5. GI prophylaxis - senna; Protonix 6. PT/OT - WBAT w/walker and LSO brace 7. Encourage incentive spirometer use 8. Discharge planning - plan for discharge home with health services within 24- 48 hours Time with Patient: Less than 30
[2022-01-16 10:57] LABS: African American GFR (CKD) 112.9 (60.0-200.0); Anion Gap 11.6 mmol/L (10.00-18.00); BUN/Creat Ratio 16.8 Ratio (12.00-20.00); Blood Urea Nitrogen 8.4 mg/dL (9.0-27.0); Calcium 8.2 mg/dL (8.7-10.3); Carbon Dioxide 25.4 mmol/L (20.0-27.5); Non-African American GFR(CKD) 97.4 (60.0-200.0); Potassium 4.2 mmol/L (3.5-5.5)
[2022-01-16] MEDS: GABAPENTIN 300 MG CAP PO SCH ×3 (11:09→22:01)
[2022-01-16] MEDS: SENNOSIDES-DOCUSATE SODIUM 1 EACH TAB PO SCH (11:09)
[2022-01-16] MEDS: PANTOPRAZOLE 40 MG TABLET PO SCH (11:09)
--- NOTE | 2022-01-16 11:27 | CT ---
EXAMINATION TYPE: CT lumbar spine wo con DATE OF EXAM: 01/16/2022 COMPARISON: 10/15/2021 HISTORY: lumbar surgery CT DLP: 1804.2 mGycm CONTRAST: None TECHNIQUE: CT of the lumbar spine is performed on a spiral scan at 3 mm thick sections. Reconstructed images are performed in the coronal and sagittal planes. FINDINGS: Postsurgical changes are within the paraspinal soft tissues. L3-S1 pedicle screws and fixat ion rods are present. There is improved spondylolisthesis. T12-L1: No focal disc herniation or significant disc bulge is evident. No spinal canal stenosis or neural foraminal stenosis is present. L1-L2: No focal disc herniation or significant disc bulge is evident. No spinal canal stenosis or n eural foraminal stenosis is present L2-L3: No focal disc herniation or significant disc bulge is evident. No spinal canal stenosis or n eural foraminal stenosis is present L3-L4: Disc spacer is present. No spinal canal stenosis is present. Neural foramen appear patent. Exa m is limitation due to beam hardening artifact. L4-L5: This level is very limited due to beam hardening artifact. The sagittal plane there appears to be improvement of the spondylolisthesis with little residual remaining. Disc spacer is present. L5-S1: No focal disc herniation or significant disc bulge is evident. No spinal canal stenosis or n eural foraminal stenosis is present Vertebral alignment appears normal. IMPRESSION: Postsurgical changes with placement of pedicle screws and disc spacers. No spinal canal stenosis or s pondylolisthesis is evident. Scoliosis remains present
--- NOTE | 2022-01-16 17:13 | P.PN ---
Subjective Progress Note Date: 01/16/22 History of Presenting Illness: Patient is a very pleasant 71-year-old female with a past medical history of hypertension, hypothyroidism, hyperlipidemia, anxiety/depression, and GERD. She is currently admitted under orthospine surgical team status post lumbar spine fusion. We have been consulted for medical management throughout patient's hospitalization. . Physical exam: Patient was seen and fully evaluated at bedside this morning. Patient reports she is having uncontrolled postoperative pain and currently reports only being mildly sore status post walking in [place]. She has been ambulatory and ROM and in hallway with use of walker with no reported difficulties. Patient reports for the first time in 4 years she has full sensation in her lower extremities and feet. Dressing to midline lumbar spine is clean dry and intact with no areas of noted bleeding or drainage. Drain remains in place with moderate serosanguineous drainage. Patient reports that she is urinating without any difficulties in tolerating oral intake without any episodes of nausea or vomiting. Patient reports she is passing flatus but has not yet had a bowel movement since surgery. Vital signs reviewed and stable. Obese. General: Nontoxic, no distress and appears stated age. Derm: Skin warm and dry, normal coloration for ethnicity. Dressing midline lumbar spine is clean, dry, and intact. Drain in place to lower lumbar region of back with moderate serosanguineous drainage in collection chamber. Head: Atraumatic, normocephalic and symmetric. Eyes: EOMs intact, no lid lag, and anicteric sclera Mouth: no lip lesions, mucus membranes moist Cardiovascular: regular rate and rhythm with normal S1S2, no murmur, positive posterior tibial pulses bilaterally, and cap refill < 2 seconds. Lungs: Respirations even, regular, and unlabored on room air. Lungs CTA bilaterally, no rhonchi, no rales, no wheezing, and no accessory muscle usage. GI/: Obese abdomen soft, nontender to palpation, no guarding, no appreciable o rganomegaly. Rivas catheter in place. Ext: ROM intact. No gross muscle atrophy, no edema, no contractures Neuro: Speech clear, face symmetrical and CN II-XII grossly intact with no noted focal neuro deficits Psych: Alert and oriented to person, place, time, and situation. Appropriate and pleasant affect. Assessment and Plan of Care: Status post L3 through pelvis spinal decompression and fusion -Management per primary admitting orthospine surgical team including DVT prophylaxis, pain management, dressing/strain management, weightbearing, and PT/OT. -Per orthospine surgical team DVT prophylaxis currently with SERAFIN villeda and PALs. Hypertension -Monitor vital signs and continue daily medication regimen with amlodipine Hypothyroidism -Continue daily medication regimen with levothyroxine. Hyperlipidemia -Continue daily medication regimen with pravastatin. Anxiety/depression -Continue daily medication regimen with Cymbalta. GERD -Continue daily medication regimen with pravastatin. Thank you for allowing us to participate in the care of this pleasant patient. Do not hesitate to contact us with questions. Someone can be reached from the [facility] hospitalist group all hours of the day at [phone] or via [employer] Objective - Vital Signs Vital signs: Vital Signs Temp 98.2 F 01/16/22 07:26 Pulse 86 01/16/22 07:26 Resp 16 01/16/22 07:26 BP 107/67 01/16/22 07:26 Pulse Ox 91 L 01/16/22 07:26 FiO2 Intake & Output 01/15/22 01/16/22 01/16/22 18:59 06:59 18:59 Intake Total 2951 Output Total 1310 1490 Balance 1641 -1490 Weight 97.3 kg 97.3 kg Intake: IV 2951 Output: Drainage 190 Right Lower Medial Back 190 Urine 810 1300 Estimated Blood Loss 500 Other: Voiding Method Indwelling Catheter # Bowel Movements 0 - Labs CBC & Chem 7: 01/16/22 06:52 01/16/22 06:52
[2022-01-16] MEDS ORDERED: DILTIAZEM 125 MG in SODIUM CHLORIDE 0.9% 100 ML IV SCH (18:30)
[2022-01-16 21:20] LABS: Basophils # (A) 0.1 k/uL (0-0.2); Basophils % (A) 1 %; Eosinophils # (A) 0.1 k/uL (0-0.7); Eosinophils % (A) 1 %; HCT 32.9 % (34.0-46.0); Hypochromasia Slight; Lymphocytes # (A) 1.5 k/uL (1.0-4.8); Lymphocytes % (A) 13 %; MCH 26.4 pg (25.0-35.0); MCHC 30.8 g/dL (31.0-37.0); MCV 85.9 fL (80.0-100.0); Mean Platelet Volume 7.4; Monocytes # (A) 0.9 k/uL (0-1.0); Monocytes % (A) 7 %; Neutrophils # (A) 9.1 k/uL (1.3-7.7); Neutrophils % (A) 78 %; Platelet Count 251 k/uL (150-450); RBC 3.83 m/uL (3.80-5.40); RDW 14.7 % (11.5-15.5); WBC 11.8 k/uL (3.8-10.6)
[2022-01-16 21:22] LABS: HGB 10.1 gm/dL (11.4-16.0)
[2022-01-16] MEDS: PRAVASTATIN SODIUM 40 MG TAB PO SCH (22:00)
[2022-01-16] MEDS: MELATONIN 1 MG TAB PO SCH (22:01)
[2022-01-16] MEDS: DULoxetine HCL 30 MG CAPSULE.DR PO SCH (22:01)
--- NOTE | 2022-01-16 22:08 | CT ---
EXAMINATION TYPE: CT chest angio for PE CT DLP: 451.8 mGycm, Automated exposure control for dose reduction was used. DATE OF EXAM: 01/16/2022 9:48 PM COMPARISON: None CLINICAL INDICATION:Female, 71 years old with history of post op hypoxia, rule out PE; R/O PE TECHNIQUE/CONTRAST: CTA scan of the thorax is performed with IV Contrast, patient injected with 85 mL of Isovue 370, pulm onary embolism protocol. MIP images are created and reviewed. FINDINGS: Pulmonary Artery: There is no evidence for a filling defect within the pulmonary vasculature to sugge st acute pulmonary embolism. The pulmonary artery is of normal size. Lungs/Pleura: No evidence of focal consolidation, pleural effusion or pneumothorax. Streaky atelectas is in the lung bases.Right middle lobe 4 mm pulmonary nodule. Airway: Large airways are patent. Heart: Heart is within normal limits for size.. Vasculature: No evidence of aortic aneurysm. There is a tortuous tortuous aorta. Mediastinum: No gross evidence of adenopathy. Moderate hiatal hernia is present. Musculoskeletal: No acute osseous abnormalities, multilevel disc degeneration changes throughout the spine. Soft Tissues: Subcutaneous gas is seen along the erector spinae muscles in the posterior back. Staple s are also present. There is no evidence of organizing fluid collection within the visualized. Lower neck: No significant findings. Upper Abdomen: Multiple hepatic cysts are present. IMPRESSION: 1. No evidence of pulmonary embolism. 2. Right middle lobe 4 mm pulmonary nodule. Consider follow-up in one year if the patient has risk fa ctors. 3. Moderate hiatal hernia. 4. Streaky atelectasis changes in the lung bases.
[2022-01-17] MEDS: METOPROLOL TARTRATE 25 MG TAB PO SCH ×3 (01:41→22:47)
[2022-01-17] MEDS: LACTATED RINGERS 1,000 ML IV SCH (06:22)
[2022-01-17] MEDS: LEVOTHYROXINE 25 MCG TAB PO SCH (06:34)
[2022-01-17] MEDS: SODIUM CHLORIDE 0.9% 1,000 ML IV SCH ×2 (06:34→18:44)
[2022-01-17] MEDS: HYDROmorphone 1 MG/ML 1 ML SYRINGE IVP PRN (07:26)
[2022-01-17] MEDS: SENNOSIDES-DOCUSATE SODIUM 1 EACH TAB PO SCH (09:30)
[2022-01-17] MEDS: GABAPENTIN 300 MG CAP PO SCH ×3 (09:33→22:45)
[2022-01-17] MEDS: amLODIPine 5 MG TAB PO SCH (09:33)
[2022-01-17 09:34] LABS: African American GFR (CKD) >90 (>60 ml/min/1.73 sqM); Anion Gap 11 mmol/L; Blood Urea Nitrogen 8 mg/dL (7-17); Calcium 7.8 mg/dL (8.4-10.2); Carbon Dioxide 25 mmol/L (22-30); Chloride 97 mmol/L (98-107); Glucose 152 mg/dL (74-99); Non-African American GFR(CKD) >90 (>60 ml/min/1.73 sqM); Potassium 4.3 mmol/L (3.5-5.1); Sodium 133 mmol/L (137-145)
[2022-01-17] MEDS: PANTOPRAZOLE 40 MG TABLET PO SCH (09:35)
[2022-01-17 09:51] LABS: HCT 31.7 % (34.0-46.0); HGB 9.9 gm/dL (11.4-16.0); Hypochromasia Slight; MCH 26.9 pg (25.0-35.0); MCHC 31.4 g/dL (31.0-37.0); MCV 85.7 fL (80.0-100.0); Mean Platelet Volume 7.8; Platelet Count 275 k/uL (150-450); RBC 3.69 m/uL (3.80-5.40); RDW 14.7 % (11.5-15.5); WBC 11.5 k/uL (3.8-10.6)
--- NOTE | 2022-01-17 10:04 | P.CRDCN ---
History of Present Illness Consult date: 01/17/22 History of present illness: HISTORY OF PRESENT ILLNESS: This is a 71-year-old female with a past medical history significant for hypertension, hyperlipidemia, former nicotine dependence (quit smoking at age 27), and marijuana use (reports gummies at night). Patient does not follow with a spring former hand. We have been asked to see the patient in consultation for atrial fibrillation with RVR. Patient examined at the bedside. Patient underwent barillas inectomy and fusion with orthopedics on 01/15/2022. The patient developed atrial for ablation with RVR yesterday and was transferred to [facility]. She was started on IV Cardizem. This morning, the patient converted to sinus mechanism. She denies any chest pain or pressure. She denies any shortness of breath. Denies any palpitations. The patient denies a previous history of atrial for ablation. However she thinks she may have had in the past. She recalls a time when she was drinking wine and afterwards noticed her heart was fluttering and racing. * EKG reveals A. fib with RVR * Laboratory data: WBC 11.5. Hemoglobin 9.9. Platelet count 275. Sodium 133. Potassium 4.3. BUN 8. Creatinine 0.59. TSH 2.090. * Current home cardiac medications include Pravachol 40 mg at night and Norvasc 10 mg in the morning REVIEW OF SYSTEMS: At the time of my exam: CONSTITUTIONAL: Denies fever or chills. HEENT: Denies blurred vision, vision changes, or eye pain. Denies hemoptysis CARDIOVASCULAR: Denies chest pain. Denies orthopnea. Denies PND. Denies palpitations RESPIRATORY: Denies shortness of breath. GASTROINTESTINAL: Denies abdominal pain. Denies nausea or vomiting. HEMATOLOGIC: Denies bleeding disorders. GENITOURINARY: Denies any blood in urine. SKIN: Denies pruitis. Denies rash. PHYSICAL EXAM: VITAL SIGNS: Reviewed. GENERAL: Well-developed in no acute distress. HEENT: Head is normocephalic. Pupils are equal, round. Sclerae anicteric. Mucous membranes of the mouth are moist. Neck supple. No JVD or thyromegaly LUNGS: Respirations even and unlabored. Lungs essentially clear to auscultation bilaterally. HEART: Regular rate and rhythm. S1 and S2 heard. ABDOMEN: Soft. Nondistended. Nontender. EXTREMITIES: Normal range of motion. No clubbing or cyanosis. Peripheral pulses intact. No lower extremity edema NEUROLOGIC: Awake and alert. Oriented x 3. ASSESSMENT: S/P spinal decompression and fusion New-onset paroxysmal atrial fibrillation with RVR, currently maintaining sinus mechanism Borderline hypotension Hypertension Hyperlipidemia Former nicotine dependence, quit at age 27 Marijuana use, reports gummies at night PLAN: Obtain 2D echo to assess cardiac structure and function Continue metoprolol Discontinue IV Cardizem Begin Eliquis 5mg BID TSH checked and WNL Decrease Norvasc to 5mg daily Further recommendations pending patient course Nurse practitioner note has been reviewed by physician. Signing provider agrees with the documented findings, assessment, and plan of care. Past Medical History Past Medical History: Cancer, GERD/Reflux, Hearing Disorder / Deafness, Hyperlipidemia, Hypertension, Musculoskeletal Disorder, Osteoarthritis (OA), Pulmonary Embolus (PE), Thyroid Disorder Additional Past Medical History / Comment(s): Hx PE at age 28, hx skin cancer on forehead, lumbar spinal stenosis, DDD, numbness and tingling bilateral lower extremities, c/o bowel incontinence occasionally, minor hearing loss. History of Any Multi-Drug Resistant Organisms: None Reported Past Surgical History: Hysterectomy Additional Past Surgical History / Comment(s): SKIN CANCER REMOVED FROM FOREHEAD, COLONOSCOPY, SEVERAL D&C'S R/T 4 MISCARRIAGES, bilateral cataracts, Pain Clinic Procedures. Past Anesthesia/Blood Transfusion Reactions: Previous Problems w/ Anesthesia, Postoperative Nausea & Vomiting (PONV) Additional Past Anesthesia/Blood Transfusion Reaction / Comment(s): With general anesthesia PONV, & "may feel panicky." Past Psychological History: No Psychological Hx Reported Smoking Status: Former smoker Past Alcohol Use History: Occasional Additional Past Alcohol Use History / Comment(s): QUIT SMOKING AT AGE 27. Past Drug Use History: None Reported Additional Drug Use History / Comment(s): CBD solution prn. Aware no use 24 hrs prior to procedure. - Past Family History Brother(s) Family Medical History: Cancer, Skin Disorder Additional Family Medical History / Comment(s): Breast cancer. Sister(s) Family Medical History: Cancer Additional Family Medical History / Comment(s): Lung cancer, . Medications and Allergies Home Medications Medication Instructions Recorded Confirmed Type Levothyroxine Sodium [Synthroid] 25 mcg PO QAM 01/01/18 01/15/22 History amLODIPine [Norvasc] 10 mg PO QAM 01/01/18 01/15/22 History DULoxetine HCL [Cymbalta] 30 mg PO HS 01/11/22 01/11/22 History Omeprazole Magnesium [PriLOSEC OTC] 20 mg PO DAILY 01/11/22 01/15/22 History Pravastatin Sodium [Pravachol] 40 mg PO HS 01/11/22 01/11/22 History Calcium Carbonate [Calcium] 600 mg PO ONCE 01/15/22 01/15/22 History Cholecalciferol [Vitamin D3 (25 25 mcg PO DAILY 01/15/22 01/15/22 History Mcg = 1000 Iu)] DULoxetine HCL [Cymbalta] 60 mg PO 01/15/22 History Gabapentin 600 mg PO BID 01/15/22 01/15/22 History Hydrocortisone Oint 1 applic TOPICAL BID 01/15/22 01/15/22 History [Hydrocortisone 2.5% Oint] Melatonin 1 mg PO HS 01/15/22 01/15/22 History Apixaban [Eliquis] 5 mg PO BID #60 tab 01/17/22 Rx Allergies Allergy/AdvReac Type Severity Reaction Status Date / Time propoxyphene AdvReac DIZZINESS Verified 01/15/22 07:18 [From Jeromet-N 100] Dwsemqn-[id number] Reductase AdvReac GENERALIZED Verified 01/15/22 07:18 Inhibitor BODY [Rhuwrkf-Xqh-Jzn Reductase ACHES/PAINS Inhibitor] elastic AdvReac Rash/Hives Uncoded 01/15/22 07:18 Physical Exam Vitals: Vital Signs Temp Pulse Resp BP Pulse Ox 01/17/22 06:30 69 93/61 91 L 01/17/22 04:40 99.5 F 84 18 93/61 93 L 01/17/22 00:32 99 F 147 H 110/56 91 L 01/16/22 23:20 99.3 F 146 H 16 107/71 91 L 01/16/22 23:00 95 01/16/22 22:56 98.8 F 154 H 18 106/62 90 L 01/16/22 18:56 99.7 F H 124 H 18 100/66 91 L 01/16/22 15:19 98.3 F 79 18 117/65 92 L Intake and Output 01/16/22 01/17/22 01/17/22 22:59 06:59 14:59 Intake Total 12.167 54.833 Output Total 150 120 Balance -137.833 -65.167 Intake: Intake, IV Titration 12.167 54.833 Amount Diltiazem 125 mg In 12.167 54.833 Sodium Chloride 0.9% 100 ml @ 5 MG/HR 5 mls/hr IV .Q24H [facility] Rx#:[id number] Output: Drainage 150 120 Right Lower Medial Back 150 120 Other: Voiding Method Toilet # Voids 2 1 Weight 99.3 kg Results 01/17/22 08:08 01/17/22 08:08 CBC 01/16/22 01/16/22 Range/Units 06:52 20:44 WBC 13.10 H 11.8 H (4.50-10.00) X 10*3/uL RBC 3.93 L 3.83 (4.10-5.20) X 10*6/uL Hgb 10.3 L 10.1 L D (12.0-15.0) g/dL Hct 33.5 L 32.9 L (37.2-46.3) % Plt Count 242 251 (140-440) X 10*3/uL Comprehensive Metabolic Panel 01/16/22 Range/Units 06:52 Sodium 140 (135-145) mmol/L Potassium 4.2 (3.5-5.5) mmol/L Chloride 103 (96-109) mmol/L Carbon Dioxide 25.4 (20.0-27.5) mmol/L BUN 8.4 L (9.0-27.0) mg/dL Creatinine 0.5 L (0.6-1.5) mg/dL Glucose 110 (70-110) mg/dL Calcium 8.2 L (8.7-10.3) mg/dL Current Medications Generic Name Dose Route Start Last Admin Trade Name Freq PRN Reason Stop Dose Admin Hydrocodone Bitart/Acetaminophen 1 each 01/15/22 14:14 01/16/22 15:41 Hydrocodone/Apap 10-325mg 1 Each Tab PO 1 each Q6HR PRN Administration Pain Hydrocodone Bitart/Acetaminophen 1 each 01/15/22 14:14 01/16/22 02:56 Hydrocodone/Apap 5-325mg 1 Each Tab PO 1 each Q4HR PRN Administration Pain Amlodipine Besylate 10 mg 01/16/22 09:00 01/16/22 11:09 Amlodipine 10 Mg Tab PO 10 mg QAM SYLVIE Administration Cyclobenzaprine HCl 5 mg 01/15/22 14:10 Cyclobenzaprine 5 Mg Tab PO TID PRN Muscle Spasm Duloxetine HCl 30 mg 01/15/22 21:00 01/16/22 22:01 Duloxetine Hcl 30 Mg Capsule.Dr PO 30 mg HS SYLVIE Administration Gabapentin 300 mg 01/15/22 16:00 01/16/22 22:01 Gabapentin 300 Mg Cap PO 300 mg TID SYLVIE Administration Hydromorphone HCl 0.5 mg 01/15/22 14:17 Hydromorphone 0.5 Mg/0.5 Ml Syringe IM Q3HR PRN Pain Hydromorphone HCl 1 mg 01/15/22 14:17 01/15/22 21:28 Hydromorphone 1 Mg/Ml 1 Ml Syringe IM 1 mg Q4HR PRN Administration Pain Hydromorphone HCl 1 mg 01/16/22 07:21 01/17/22 07:26 Hydromorphone 1 Mg/Ml 1 Ml Syringe IVP 1 mg Q4HR PRN Administration Pain Lactated Ringer's 1,000 mls @ 20 mls/hr 01/15/22 06:08 01/17/22 06:22 Lactated Ringers IV Not Given .Q24H SYLVIE Cefazolin Sodium 2 gm/ Sodium 50 mls @ 100 mls/hr 01/15/22 18:00 01/17/22 02:10 Chloride IVPB 100 mls/hr Q8H SYLVIE Administration Protocol Sodium Chloride 1,000 mls @ 75 mls/hr 01/15/22 14:15 01/17/22 06:34 Saline 0.9% IV 75 mls/hr .[id number] SYLVIE Administration Diltiazem HCl 125 mg/ Sodium 125 mls @ 5 mls/hr 01/16/22 18:30 01/17/22 07:09 Chloride IV 0 mg/hr .Q24H SYLVIE 0 mls/hr Titration Protocol 5 MG/HR Levothyroxine Sodium 25 mcg 01/16/22 06:30 01/17/22 06:34 Levothyroxine 25 Mcg Tab PO 25 mcg 0630 SYLVIE Administration Magnesium Hydroxide 2,400 mg 01/15/22 14:10 Magnesium Hydroxide 2,400 Mg/10 Ml Cup PO DAILY PRN Constipation Melatonin 1 mg 01/15/22 21:00 01/16/22 22:01 Melatonin 1 Mg Tab PO Not Given HS SYLVIE Metoprolol Tartrate 25 mg 01/17/22 01:30 01/17/22 01:41 Metoprolol Tartrate 25 Mg Tab PO 25 mg BID SYLVIE Administration Pantoprazole Sodium 40 mg 01/16/22 09:00 01/16/22 11:09 Pantoprazole 40 Mg Tablet PO 40 mg DAILY SYLVIE Administration Pravastatin Sodium 40 mg 01/15/22 21:00 01/16/22 22:00 Pravastatin Sodium 40 Mg Tab PO 40 mg HS SYLVIE Administration Senna/Docusate Sodium 2 each 01/16/22 09:00 01/16/22 11:09 Sennosides-Docusate Sodium 1 Each Tab PO 2 each DAILY SYLVIE Administration Intake and Output 01/16/22 01/17/22 01/17/22 22:59 06:59 14:59 Intake Total 12.167 54.833 Output Total 150 120 Balance -137.833 -65.167 Intake: Intake, IV Titration 12.167 54.833 Amount Diltiazem 125 mg In 12.167 54.833 Sodium Chloride 0.9% 100 ml @ 5 MG/HR 5 mls/hr IV .Q24H [facility]END[facility] Rx#:[id number] Output: Drainage 150 120 Right Lower Medial Back 150 120 Other: Voiding Method Toilet # Voids 2 1 Weight 99.3 kg 01/16/22 20:44 01/16/22 06:52
--- NOTE | 2022-01-17 11:06 | P.PN ---
Subjective Progress Note Date: 01/17/22 Principal diagnosis: Status post L3-S1 posterior lateral decompression and fusion New onset A. fib Patient was evaluated today at bedside, she was transferred to the cardiac step down unit due to new onset A. fib with RVR. She is being followed by cardiology at this time. Patient states that she is feeling a little bit worse today, she is having more discomfort in the lower back. She has been up and ambulating, her LSO brace was delivered. She is urinating with no difficulties. Her drain is still putting out a decent amount of fluid. She currently denies any headach es, lightheadedness, chest pain, shortness of breath, lower extremity paresthesias, loss of bowel or bladder function. Objective - Vital Signs Vital signs: Vital Signs Temp 99.0 F 01/17/22 08:50 Pulse 81 01/17/22 08:50 Resp 20 01/17/22 08:50 BP 93/59 01/17/22 08:50 Pulse Ox 95 01/17/22 08:50 FiO2 Intake & Output 01/16/22 01/17/22 01/17/22 18:59 06:59 18:59 Intake Total 12.167 54.833 Output Total 220 150 120 Balance -220 -137.833 -65.167 Weight 99.3 kg Intake: Intake, IV Titration 12.167 54.833 Amount Diltiazem 125 mg In 12.167 54.833 Sodium Chloride 0.9% 100 ml @ 5 MG/HR 5 mls/hr IV .Q24H [facility] Rx#:[id number] Output: Drainage 220 150 120 Right Lower Medial Back 220 150 120 Other: Voiding Method Toilet # Voids 2 1 - Exam Gen: AOx3, NAD VSS stable at this time Integument: Postop bandages in good position and condition, mild spotty drainage present. Drain has mild amount of serosanguineous fluid. Drain was adjusted to gravity with no compression. Palpation: No tenderness with palpation to the midline or paraspinal revision of the cervical or thoracic spine. Mild tenderness to the paraspinal region of the lumbar spine ROM: Full range of motion and no major musculoskeletal bilateral upper and lower extremities, no focal deficits appreciated Sensory Exam: Senory exam to light touch is intact C5-T1 Senosry exam to light touch is intact L2-S1 Motor: 55 strength appreciated in the bilateral upper extremities with shoulder abduction, shoulder elevation, elbow extension, elbow flexion, wrist extension, wrist flexion, client retention specialist 55 strength appreciated bilateral lower extremities with hip flexion, knee extension, knee flexion, plantar flexion, dorsiflexion, EHL, FHL Reflexes: 2/4 in all UE and LE Negative Damián's bilaterally Negative Babinski bilaterally Negative clonus bilaterally - Labs CBC & Chem 7: 01/17/22 08:08 01/17/22 08:08 Labs: Abnormal Lab Results - Last 24 Hours (Table) 01/16/22 01/16/22 01/17/22 Range/Units 18:48 20:44 08:08 WBC 11.8 H 11.5 H (3.8-10.6) k/uL RBC 3.69 L (3.80-5.40) m/uL Hgb 10.1 L D 9.9 L (11.4-16.0) gm/dL Hct 32.9 L 31.7 L (34.0-46.0) % MCHC 30.8 L (31.0-37.0) g/dL Neutrophils # 9.1 H (1.3-7.7) k/uL D-Dimer 0.89 H (<0.60) mg/L FEU Sodium (137-145) mmol/L Chloride (98-107) mmol/L Glucose (74-99) mg/dL Calcium (8.4-10.2) mg/dL 01/17/22 Range/Units 08:08 WBC (3.8-10.6) k/uL RBC (3.80-5.40) m/uL Hgb (11.4-16.0) gm/dL Hct (34.0-46.0) % MCHC (31.0-37.0) g/dL Neutrophils # (1.3-7.7) k/uL D-Dimer (<0.60) mg/L FEU Sodium 133 L (137-145) mmol/L Chloride 97 L (98-107) mmol/L Glucose 152 H (74-99) mg/dL Calcium 7.8 L (8.4-10.2) mg/dL Assessment and Plan Assessment: Postoperative day #2 status post L3-S1 posterior lateral decompression and fusio n New-onset A. fib Medical comorbidities Plan: Pain control, continue with oral medication along with IV medication as needed DVT prophylaxis, patient has been started on an oral anti-coagulum by cardiology Wound care, drain was set to gravity, hopeful removal in 1922 2021. We'll change surgical dressing at that time Weight-bear as tolerated with walker, utilize LSO brace when up and ambulating Continue PT/OT daily Encourage incentive spirometer Other medical administrative assistant recommendations Discharge planning: Anticipate discharge next 24/48 hours to home with home care Time with Patient: Less than 30
--- NOTE | 2022-01-17 11:09 | CA ---
Transthoracic Echo Report Name: Sofia Chaudhari Age: 71 Gender: F : 1950 Exam Date: 01/17/2022 07:36 Exam Location: [facility] Ht (in): 64 Wt (lb): 218 Ordering Physician: Shan Ramsay Attending/Referring Phys: Rail Car Loader Betzy Pedraza RDCS Procedure CPT: Indications: new onset atrial fib Cardiac Hx: Technical Quality: Good Contrast 1: Total Dose (mL): Contrast 2: Total Dose (mL): MEASUREMENTS (Male / Female) Normal Values 2D ECHO LV Diastolic Diameter PLAX 5.1 cm 4.2 - 5.9 / 3.9 - 5.3 cm LV Systolic Diameter PLAX 3.3 cm IVS Diastolic Thickness 1.1 cm 0.6 - 1.0 / 0.6 - 0.9 cm LVPW Diastolic Thickness 1.1 cm 0.6 - 1.0 / 0.6 - 0.9 cm LV Relative Wall Thickness 0.4 RV Internal Dim ED PLAX 3.4 cm LA Systolic Diameter LX 3.5 cm 3.0 - 4.0 / 2.7 - 3.8 cm LA Volume 54.8 cm??? 18 - 58 / 22 - 52 cm??? M-MODE Aortic Root Diameter MM 3.3 cm MV E Point Septal Separation 0.3 cm AV Cusp Separation MM 2.2 cm DOPPLER AV Peak Velocity 170.7 cm/s AV Peak Gradient 11.7 mmHg MV Area PHT 4.9 cm??? Mitral E Point Velocity 96.6 cm/s Mitral A Point Velocity 78.8 cm/s Mitral E to A Ratio 1.2 MV Deceleration Time 156.2 ms MV E' Velocity 7.4 cm/s Mitral E to MV E' Ratio 13.1 TR Peak Velocity 238.4 cm/s TR Peak Gradient 22.7 mmHg Right Ventricular Systolic Press 27.6 mmHg FINDINGS Left Ventricle Left ventricular ejection fraction is estimated at 55-60 %. Left ventricular cavity size normal. Borderline left ventricular hypertrophy. Right Ventricle Mild right ventricular dilatation. Right ventricular systolic pressure within normal limits. Right Atrium Normal right atrial size. Left Atrium Mildly increased left atrial volume. Mildly increased left atrial area. No evidence for an atrial septal defect. Mitral Valve Structurally normal mitral valve. No mitral stenosis, regurgitation or prolapse. Aortic Valve Trileaflet aortic valve. No aortic valve stenosis or regurgitation. Tricuspid Valve Mild tricuspid regurgitation. Pulmonic Valve Structurally normal pulmonic valve. Pericardium Normal pericardium. No pericardial effusion. Aorta Normal size aortic root and proximal ascending aorta. CONCLUSIONS Normal LV systolic function Previewed by: Dr. Aadm Sagastume MD (Electronically Signed) Final Date: 17 January 2022 11:08
[2022-01-17] MEDS: HYDROcodone/APAP 10-325MG 1 EACH TAB PO PRN (11:42)
[2022-01-17] MEDS: APIXABAN 5 MG TAB PO SCH ×2 (11:51→22:46)
--- NOTE | 2022-01-17 12:32 | P.PN ---
Subjective Progress Note Date: 01/17/22 History of Presenting Illness: Patient is a very pleasant 71-year-old female with a past medical history of hypertension, hypothyroidism, hyperlipidemia, anxiety/depression, and GERD. She is currently admitted under orthospine surgical team status post lumbar spine fusion. We have been consulted for medical management throughout patient's hospitalization. The evening of 01/16/22 patient was found to be in new onset atrial fibrillation with RVR. An EKG was completed confirming A. fib RVR with a ventricular rate of 129 bpm. Patient was started on a Cardizem infusion and later converted back into normal sinus rhythm. Anticoagulation was held on initial evening after discussing with orthospine surgeon secondary to excess serosanguineous output from postsurgical drain and > 3 g drop in hemoglobin. On the morning of 01/17/22 output from postsurgical drain significantly decreased and hemoglobin was stable only dropping from 10.1 down to 9.9 so patient was started on oral anticoagulant with Eliquis at that time. Patient is maintaining sinus mechanism at this time and in addition to oral anticoagulant was also started on metoprolol 25 mg twice daily. Physical exam: Patient was seen and fully evaluated at the bedside this morning. Patient was sitting up in chair and appeared to be doing well. Patient has had significant decrease in postsurgical drainage with output from drain only 120 mL over the past 24 hours significantly improving from previous 370 mL. Morning labs reviewed and stable. Showing stabilized hemoglobin of 9.9 and mild hyponatremia with sodium of 133 otherwise no significant abnormalities. Patient currently reports mild lower back pain, but denies any other complaints including headache, lightheadedness, dizziness, chest pain, palpitations, shortness of breath, or experiencing any numbness/tingling/weakness in her extremities. Vital signs reviewed and stable. Obese. General: Nontoxic, no distress and appears stated age. Derm: Skin warm and dry, normal coloration for ethnicity. Dressing midline lumbar spine is clean, dry, and intact. Drain in place to lower lumbar region of back with moderate serosanguineous drainage in collection chamber. Head: Atraumatic, normocephalic and symmetric. Eyes: EOMs intact, no lid lag, and anicteric sclera Mouth: no lip lesions, mucus membranes moist Cardiovascular: regular rate and rhythm with normal S1S2, no murmur, positive posterior tibial pulses bilaterally, and cap refill < 2 seconds. Lungs: Respirations even, regular, and unlabored on room air. Lungs CTA bilaterally, no rhonchi, no rales, no wheezing, and no accessory muscle usage. GI/: Obese abdomen soft, nontender to palpation, no guarding, no appreciable organomegaly. Rivas catheter in place. Ext: ROM intact. No gross muscle atrophy, no edema, no contractures Neuro: Speech clear, face symmetrical and CN II-XII grossly intact with no noted focal neuro deficits Psych: Alert and oriented to person, place, time, and situation. Appropriate and pleasant affect. Assessment and Plan of Care: New-onset A. fib RVR -Yesterday evening patient was found to be in new onset atrial fibrillation with a rapid ventricular rate maintaining and 140s. -Patient was asymptomatic denying any chest pain, palpitations, or shortness of breath. -EKG was completed revealing atrial fibrillation with RVR with a ventricular rate of 129 bpm. -Patient was started on Cardizem infusion and later converted back into normal sinus rhythm. -Echocardiogram completed revealing EF of 55-60% and mild tricuspid regurgitation. -Patient started on Eliquis and metoprolol. Acute postoperative blood loss anemia -Patient initially had greater than 3 g drop in hemoglobin with excess output from surgical drain. Patient did not require any transfusions and postsurgical drainage significantly decreased and hemoglobin stabilized. -Hemoglobin stable at 9.9. -Continue to monitor with repeat a.m. labs. Status post L3 through pelvis spinal decompression and fusion -Management per primary admitting orthospine surgical team including DVT prophylaxis, pain management, dressing/strain management, weightbearing, and PT/OT. -Pt started on Eliquis secondary to new onset atrial fibrillation with RVR. Hypertension -Monitor vital signs and continue daily medication regimen with amlodipine Hypothyroidism -Continue daily medication regimen with levothyroxine. Hyperlipidemia -Continue daily medication regimen with pravastatin. Anxiety/depression -Continue daily medication regimen with Cymbalta. GERD -Continue daily medication regimen with pravastatin. Thank you for allowing us to participate in the care of this pleasant patient. Do not hesitate to contact us with questions. Someone can be reached from the [facility] hospitalist group all hours of the day at [phone] or via perfect serve.. Objective - Vital Signs Vital signs: Vital Signs Temp 99.5 F 01/17/22 04:40 Pulse 69 01/17/22 06:30 Resp 18 01/17/22 04:40 BP 93/61 01/17/22 06:30 Pulse Ox 91 L 01/17/22 06:30 FiO2 Intake & Output 01/16/22 01/17/22 01/17/22 18:59 06:59 18:59 Intake Total 12.167 54.833 Output Total 220 150 120 Balance -220 -137.833 -65.167 Weight 99.3 kg Intake: Intake, IV Titration 12.167 54.833 Amount Diltiazem 125 mg In 12. 54.833 Sodium Chloride 0.9% 100 ml @ 5 MG/HR 5 mls/hr IV .Q24H [facility] Rx#:[id number] Output: Drainage 220 150 120 Right Lower Medial Back 220 150 120 Other: Voiding Method Toilet # Voids 2 1 - Labs CBC & Chem 7: 01/17/22 08:08 01/17/22 08:08 Labs: Abnormal Lab Results - Last 24 Hours (Table) 01/16/22 01/16/22 01/16/22 Range/Units 06:52 06:52 18:48 WBC 13.10 H (4.50-10.00) X 10*3/uL RBC 3.93 L (4.10-5.20) X 10*6/uL Hgb 10.3 L (12.0-15.0) g/dL Hct 33.5 L (37.2-46.3) % MCH 26.2 L (27.0-32.0) pg MCHC 30.7 L (32.0-37.0) g/dL RDW 15.4 H (11.5-14.5) % Immature Gran # 0.06 H (0.00-0.04) X 10*3/uL Neutrophils # 10.70 H (1.80-7.70) X 10*3/uL Eosinophils # 0.01 L (0.04-0.35) X 10*3/uL D-Dimer 0.89 H (<0.60) mg/L FEU BUN 8.4 L (9.0-27.0) mg/dL Creatinine 0.5 L (0.6-1.5) mg/dL Calcium 8.2 L (8.7-10.3) mg/dL 01/16/22 Range/Units 20:44 WBC 11.8 H (4.50-10.00) X 10*3/uL RBC (4.10-5.20) X 10*6/uL Hgb 10.1 L D (12.0-15.0) g/dL Hct 32.9 L (37.2-46.3) % MCH (27.0-32.0) pg MCHC 30.8 L (32.0-37.0) g/dL RDW (11.5-14.5) % Immature Gran # (0.00-0.04) X 10*3/uL Neutrophils # 9.1 H (1.80-7.70) X 10*3/uL Eosinophils # (0.04-0.35) X 10*3/uL D-Dimer (<0.60) mg/L FEU BUN (9.0-27.0) mg/dL Creatinine (0.6-1.5) mg/dL Calcium (8.7-10.3) mg/dL
[2022-01-17] MEDS: DULoxetine HCL 30 MG CAPSULE.DR PO SCH (22:45)
[2022-01-17] MEDS: PRAVASTATIN SODIUM 40 MG TAB PO SCH (22:46)
[2022-01-17] MEDS: MELATONIN 1 MG TAB PO SCH (23:00)
[2022-01-18] MEDS: LACTATED RINGERS 1,000 ML IV SCH (06:12)
[2022-01-18] MEDS: LEVOTHYROXINE 25 MCG TAB PO SCH (06:13)
--- NOTE | 2022-01-18 08:08 | P.PN ---
Subjective Progress Note Date: 01/18/22 Pt s/e doing fairly well. No issues overnight. Has been up to chair and walking to bathroom but still very painful. Denies any new sx. No f/c/sob/cp. Denies any other sx. NO BM but voiding. Objective - Vital Signs Vital signs: Vital Signs Temp 98.2 F 01/18/22 07:55 Pulse 70 01/18/22 07:55 Resp 18 01/18/22 07:55 BP 123/76 01/18/22 07:55 Pulse Ox 97 01/18/22 07:55 FiO2 Intake & Output 01/17/22 01/18/22 01/18/22 18:59 06:59 18:59 Intake Total 104.833 Output Total 220 Balance -115.167 Intake: Intake, IV Titration 104.833 Amount Diltiazem 125 mg In 54.833 Sodium Chloride 0.9% 100 ml @ 5 MG/HR 5 mls/hr IV .Q24H [facility] Rx#:[id number] ceFAZolin 2 gm In Sodium 50 Chloride 0.9% 50 ml @ 100 mls/hr IVPB Q8H [facility] Rx#: [id number] Output: Drainage 220 Right Lower Medial Back 220 Other: Voiding Method Toilet Toilet # Voids 1 2 # Bowel Movements 1 - Exam Patient is alert and oriented 3 appears well-nourished well-hydrated is in no acute distress. They do not appear septic. There is TTP about the incision but no flucctuence Lower extremities with 4+ out of 5 strength in all major muscle groups; normal deconditioining Upper extremities show 5/5 strength in all major muscle groups. There is FROM that is painless of the b/l UE and LE in all major joints. They are intact to light touch sensation in L2 to S1 nerve distribution. DTR 2/4 all upper and lower extremities Patient has palpable dorsalis pedis was posterior tibial pulses. Palpable Rad Ulnar pulses b/l Compartments are soft and compressible. Patient shows a negative Homans Neg hoffmans Neg clonus Neg babinski Cranial nerves II through XII are grossly intact. - Labs CBC & Chem 7: 01/17/22 08:08 01/17/22 08:08 Labs: Abnormal Lab Results - Last 24 Hours (Table) 01/17/22 01/17/22 Range/Units 08:08 08:08 WBC 11.5 H (3.8-10.6) k/uL RBC 3.69 L (3.80-5.40) m/uL Hgb 9.9 L (11.4-16.0) gm/dL Hct 31.7 L (34.0-46.0) % Sodium 133 L (137-145) mmol/L Chloride 97 L (98-107) mmol/L Glucose 152 H (74-99) mg/dL Calcium 7.8 L (8.4-10.2) mg/dL Assessment and Plan Assessment: S/p L3-S1 decompression and fusion Plan: -Appreciate heritage consultant and team management. -Activity: Ambulate QID, OOB all meals, up and about, limit lifting bending twisting to less than 5 lbs. Use walker or cane if needed for stability. -Daily PT/OT, increase ambulation strength and balance. -Brace when up and about, not needed in bed or chair -Pain control: Adequate at this time -Meds: reviewed -GI ppx: senna, Miralax -DVT PPX: OK for Heparin -Hygiene: Shower today. Maintain dressing clean and dry. Meticulous cleaning after BMs away from incision site -Drains: Maintain for now. Record output, poss DC later today -Encourage IS 10x/hr -Dispo: Pending
[2022-01-18] MEDS: HYDROcodone/APAP 10-325MG 1 EACH TAB PO PRN ×2 (08:25→15:04)
[2022-01-18] MEDS: GABAPENTIN 300 MG CAP PO SCH ×3 (08:25→22:31)
[2022-01-18] MEDS: PANTOPRAZOLE 40 MG TABLET PO SCH (08:26)
[2022-01-18] MEDS: amLODIPine 5 MG TAB PO SCH (08:26)
[2022-01-18] MEDS: METOPROLOL TARTRATE 25 MG TAB PO SCH ×2 (08:26→22:31)
[2022-01-18] MEDS: SENNOSIDES-DOCUSATE SODIUM 1 EACH TAB PO SCH (08:26)
[2022-01-18] MEDS: APIXABAN 5 MG TAB PO SCH ×2 (08:26→22:31)
[2022-01-18] MEDS: SODIUM CHLORIDE 0.9% 1,000 ML IV SCH ×2 (08:27→22:31)
[2022-01-18 11:31] LABS: Basophils % (A) 0 %; Eosinophils # (A) 0.1 k/uL (0-0.7); Eosinophils % (A) 1 %; HCT 28.4 % (34.0-46.0); HGB 8.9 gm/dL (11.4-16.0); Hypochromasia Slight; Lymphocytes # (A) 1.2 k/uL (1.0-4.8); Lymphocytes % (A) 12 %; MCHC 31.5 g/dL (31.0-37.0); MCV 85.8 fL (80.0-100.0); Mean Platelet Volume 7.6; Monocytes # (A) 0.7 k/uL (0-1.0); Monocytes % (A) 7 %; Neutrophils # (A) 8.3 k/uL (1.3-7.7); Neutrophils % (A) 79 %; Platelet Count 223 k/uL (150-450); RBC 3.31 m/uL (3.80-5.40); RDW 14.9 % (11.5-15.5); WBC 10.5 k/uL (3.8-10.6)
--- NOTE | 2022-01-18 12:47 | P.PN ---
Subjective Progress Note Date: 01/18/22 HISTORY OF PRESENT ILLNESS: This is a 71-year-old female with a past medical history significant for hypertension, hyperlipidemia, former nicotine dependence (quit smoking at age 27), and marijuana use (reports gummies at night). Patient does not follow with a application consultant. We have been asked to see the patient in consultation for atrial fibrillation with RVR. Patient examined at the bedside. Patient underwent laminectomy and fusion with orthopedics on 01/15/2022. The patient developed atrial for ablation with RVR yesterday and was transferred to [facility]. She was started on IV Cardizem. This morning, the patient converted to sinus mechanism. She denies any chest pain or pressure. She denies any shortness of breath. Denies any palpitations. The patient denies a previous history of atrial for ablation. However she thinks she may have had in the past. She recalls a time when she was drinking wine and afterwards noticed her heart was fluttering and racing. * EKG reveals A. fib with RVR * Laboratory data: WBC 11.5. Hemoglobin 9.9. Platelet count 275. Sodium 133. Potassium 4.3. BUN 8. Creatinine 0.59. TSH 2.090. * Current home cardiac medications include Pravachol 40 mg at night and Norvasc 10 mg in the morning 01/18/2022 Patient examined this morning at the bedside. Patient denies chest pain or pressure. Denies SOB. Telemetry reveals sinus mechanism. 2-D echo reveals preserved LV systolic function. PHYSICAL EXAM: VITAL SIGNS: Reviewed. GENERAL: Well-developed in no acute distress. HEENT: Head is normocephalic. Pupils are equal, round. Sclerae anicteric. Mucous membranes of the mouth are moist. Neck supple. No JVD or thyromegaly LUNGS: Respirations even and unlabored. Lungs essentially clear to auscultation bilaterally. HEART: Regular rate and rhythm. S1 and S2 heard. ABDOMEN: Soft. Nondistended. Nontender. EXTREMITIES: Normal range of motion. No clubbing or cyanosis. Peripheral pulses intact. No lower extremity edema NEUROLOGIC: Awake and alert. Oriented x 3. ASSESSMENT: S/P spinal decompression and fusion New-onset paroxysmal atrial fibrillation with RVR, currently maintaining sinus mechanism Borderline hypotension Hypertension Hyperlipidemia Former nicotine dependence, quit at age 27 Marijuana use, reports gummies at night PLAN: Continue current cardiac medications Patient is currently stable for discharge from a cardiac standpoint She is to follow up on an outpatient basis with Dr. Greenwood Nurse practitioner note has been reviewed by physician. Signing provider agrees with the documented findings, assessment, and plan of care. Objective - Vital Signs Vital signs: Vital Signs Temp 97.7 F 01/18/22 11:48 Pulse 64 01/18/22 11:48 Resp 20 01/18/22 11:48 BP 108/64 01/18/22 11:48 Pulse Ox 97 01/18/22 11:48 FiO2 Intake & Output 01/17/22 01/18/22 01/18/22 18:59 06:59 18:59 Intake Total 104.833 Output Total 220 131 Balance -115.167 -131 Intake: Intake, IV Titration 104.833 Amount Diltiazem 125 mg In 54.833 Sodium Chloride 0.9% 100 ml @ 5 MG/HR 5 mls/hr IV .Q24H [facility] Rx#:[id number] ceFAZolin 2 gm In Sodium 50 Chloride 0.9% 50 ml @ 100 mls/hr IVPB Q8H [facility] Rx#: [id number] Output: Drainage 220 130 Right Lower Medial Back 220 130 Stool 1 Other: Voiding Method Toilet Toilet # Voids 1 2 1 # Bowel Movements 1 - Labs CBC & Chem 7: 01/18/22 10:25 01/17/22 08:08 Labs: Abnormal Lab Results - Last 24 Hours (Table) 01/18/22 Range/Units 10:25 RBC 3.31 L (3.80-5.40) m/uL Hgb 8.9 L (11.4-16.0) gm/dL Hct 28.4 L (34.0-46.0) % Neutrophils # 8.3 H (1.3-7.7) k/uL
--- NOTE | 2022-01-18 15:40 | P.PN ---
Subjective Progress Note Date: 01/18/22 History of Presenting Illness: Patient is a very pleasant 71-year-old female with a past medical history of hypertension, hypothyroidism, hyperlipidemia, anxiety/depression, and GERD. She is currently admitted under orthospine surgical team status post lumbar spine fusion. We have been consulted for medical management throughout patient's hospitalization. The evening of 01/16/22 patient was found to be in new onset atrial fibrillation with RVR. An EKG was completed confirming A. fib RVR with a ventricular rate of 129 bpm. Patient was started on a Cardizem infusion and later converted back into normal sinus rhythm. Anticoagulation was held on initial evening after discussing with orthospine surgeon secondary to excess serosanguineous output from postsurgical drain and > 3 g drop in hemoglobin. On the morning of 01/17/22 output from postsurgical drain significantly decreased and hemoglobin was stable only dropping from 10.1 down to 9.9 so patient was started on oral anticoagulant with Eliquis at that time. Patient is maintaining sinus mechanism at this time and in addition to oral anticoagulant was also started on metoprolol 25 mg twice daily. Echocardiogram completed revealing EF of 55-60% and mild tricuspid regurgitation. Patient was evaluated by cardiology and cleared from a cardiac standpoint for outpatient follow-up in their office. Medically, patient is also stable for discharge home once cleared by primary admitting orthospine surgery team. Physical exam: Patient was seen and fully evaluated at the bedside this morning. Patient is postoperative day 3 and is doing well. She is maintaining sinus mechanism with no further episodes of atrial fibrillation with RVR. Patient to continue with metoprolol and Eliquis. She reports her pain is being managed, patient has had documented output from postsurgical drain of 130 mL over the past 24 hours. Morning labs reviewed and stable with hemoglobin of 8.9. Patient continues to deny having any headache, lightheadedness, dizziness, chest pain, palpitations, shortness of breath, cough or congestion, abdominal pain, nausea, vomiting, difficulties with urination, or experiencing any numbness/tingling/weakness in her extremities. Vital signs reviewed and stable. Obese. General: Nontoxic, no distress and appears stated age. Derm: Skin warm and dry, normal coloration for ethnicity. Dressing midline lumbar spine is clean, dry, and intact. Drain in place to lower lumbar region of back with moderate serosanguineous drainage in collection chamber. Head: Atraumatic, normocephalic and symmetric. Eyes: EOMs intact, no lid lag, and anicteric sclera Mouth: no lip lesions, mucus membranes moist Cardiovascular: regular rate and rhythm with normal S1S2, no murmur, positive posterior tibial pulses bilaterally, and cap refill < 2 seconds. Lungs: Respirations even, regular, and unlabored on room air. Lungs CTA bilaterally, no rhonchi, no rales, no wheezing, and no accessory muscle usage. GI/: Obese abdomen soft, nontender to palpation, no guarding, no appreciable organomegaly. Rivas catheter in place. Ext: ROM intact. No gross muscle atrophy, no edema, no contractures Neuro: Speech clear, face symmetrical and CN II-XII grossly intact with no noted focal neuro deficits Psych: Alert and oriented to person, place, time, and situation. Appropriate and pleasant affect. Assessment and Plan of Care: New-onset A. fib RVR -Yesterday evening patient was found to be in new onset atrial fibrillation with a rapid ventricular rate maintaining and 140s. -Patient was asymptomatic denying any chest pain, palpitations, or shortness of breath. -EKG was completed revealing atrial fibrillation with RVR with a ventricular rate of 129 bpm. -Patient was started on Cardizem infusion and later converted back into normal sinus rhythm. -Echocardiogram completed revealing EF of 55-60% and mild tricuspid regurgitation. -Patient started on Eliquis and metoprolol. Acute postoperative blood loss anemia -Patient initially had greater than 3 g drop in hemoglobin with excess output f rom surgical drain. Patient did not require any transfusions and postsurgical drainage significantly decreased and hemoglobin stabilized. -Hemoglobin stable at 9.9. -Continue to monitor with repeat a.m. labs. Status post L3 through pelvis spinal decompression and fusion -Management per primary admitting orthospine surgical team including DVT prophylaxis, pain management, dressing/strain management, weightbearing, and PT/OT. -Pt started on Eliquis secondary to new onset atrial fibrillation with RVR. Hypertension -Monitor vital signs and continue daily medication regimen with amlodipine Hypothyroidism -Continue daily medication regimen with levothyroxine. Hyperlipidemia -Continue daily medication regimen with pravastatin. Anxiety/depression -Continue daily medication regimen with Cymbalta. GERD -Continue daily medication regimen with pravastatin. Thank you for allowing us to participate in the care of this pleasant patient. Do not hesitate to contact us with questions. Someone can be reached from the [facility] hospitalist group all hours of the day at [phone] or via perfect serve.. Objective - Vital Signs Vital signs: Vital Signs Temp 98.2 F 01/18/22 07:55 Pulse 70 01/18/22 07:55 Resp 18 01/18/22 07:55 BP 123/76 01/18/22 07:55 Pulse Ox 97 01/18/22 07:55 FiO2 Intake & Output 01/17/22 01/18/22 01/18/22 18:59 06:59 18:59 Intake Total 104.833 Output Total 220 131 Balance -115.167 -131 Intake: Intake, IV Titration 104.833 Amount Diltiazem 125 mg In 54.833 Sodium Chloride 0.9% 100 ml @ 5 MG/HR 5 mls/hr IV .Q24H [facility] Rx#:[id number] ceFAZolin 2 gm In Sodium 50 Chloride 0.9% 50 ml @ 100 mls/hr IVPB Q8H [facility] Rx#: [id number] Output: Drainage 220 130 Right Lower Medial Back 220 130 Stool 1 Other: Voiding Method Toilet Toilet # Voids 1 2 1 # Bowel Movements 1 - Labs CBC & Chem 7: 01/18/22 10:25 01/17/22 08:08 Labs: Abnormal Lab Results - Last 24 Hours (Table) 01/17/22 01/17/22 Range/Units 08:08 08:08 WBC 11.5 H (3.8-10.6) k/uL RBC 3.69 L (3.80-5.40) m/uL Hgb 9.9 L (11.4-16.0) gm/dL Hct 31.7 L (34.0-46.0) % Sodium 133 L (137-145) mmol/L Chloride 97 L (98-107) mmol/L Glucose 152 H (74-99) mg/dL Calcium 7.8 L (8.4-10.2) mg/dL
[2022-01-18] MEDS ORDERED: polyethylene glycoL 3350 17 GM POWD.PACK PO STA (15:42)
[2022-01-18] MEDS: MELATONIN 1 MG TAB PO SCH (22:31)
[2022-01-18] MEDS: PRAVASTATIN SODIUM 40 MG TAB PO SCH (22:31)
[2022-01-18] MEDS: DULoxetine HCL 30 MG CAPSULE.DR PO SCH (22:31)
[2022-01-19] MEDS: HYDROcodone/APAP 10-325MG 1 EACH TAB PO PRN ×2 (02:47→09:10)
[2022-01-19 03:59] VITALS: RESP 16; TEMP 98.2
[2022-01-19] MEDS: LEVOTHYROXINE 25 MCG TAB PO SCH (07:09)
[2022-01-19] MEDS: PANTOPRAZOLE 40 MG TABLET PO SCH (09:11)
[2022-01-19] MEDS: METOPROLOL TARTRATE 25 MG TAB PO SCH (09:11)
[2022-01-19] MEDS: SENNOSIDES-DOCUSATE SODIUM 1 EACH TAB PO SCH (09:11)
[2022-01-19] MEDS: GABAPENTIN 300 MG CAP PO SCH (09:11)
[2022-01-19] MEDS: APIXABAN 5 MG TAB PO SCH (09:11)
[2022-01-19] MEDS: amLODIPine 5 MG TAB PO SCH (09:11)
[2022-01-19 09:23] VITALS: BP 130/69; PULSE 76
--- NOTE | 2022-01-19 11:31 | P.PN ---
Subjective Progress Note Date: 01/19/22 Principal diagnosis: Status post L3-S1 posterior lateral decompression and fusion New onset AJagdish guillen Patient was evaluated today at bedside, she appears to be in no acute distress. Slade is eager to be discharged today. We have been monitoring the output in the drain which has continued to decrease. Cardiology and internal medicine and then following the patient and cleared her for discharge. Patient has been urinating with no difficulties, she's had multiple small bowel movement she states. Patient currently denies any headaches, lightheadedness, chest pain, shortness of breath, lower extremity paresthesias, loss of bowel or bladder function. Objective - Vital Signs Vital signs: Vital Signs Temp 98.2 F 01/19/22 02:00 Pulse 76 01/19/22 08:00 Resp 16 01/19/22 08:00 BP 130/69 01/19/22 08:00 Pulse Ox 91 L 01/19/22 08:36 FiO2 Intake & Output 01/18/22 01/19/22 01/19/22 18:59 06:59 18:59 Intake Total 540 Output Total 131 60 1 Balance -131 -60 539 Intake: Oral 540 Output: Drainage 130 60 Right Lower Medial Back 130 60 Stool 1 1 Other: Voiding Method Toilet Toilet # Voids 1 1 - Exam Gen: AOx3, NAD VSS stable at this time Integument: Postoperative dressing was removed and changed at bedside, the jamaal are all in good position and condition. No obvious masses appreciated. The drain was also bedside, new bandage is placed. Palpation: No tenderness with palpation to the midline or paraspinal revision of the cervical or thoracic spine. Mild tenderness to the paraspinal region of the lumbar spine ROM: Full range of motion and no major musculoskeletal bilateral upper and lower extremities, no focal deficits appreciated Sensory Exam: Senory exam to light touch is intact C5-T1 Senosry exam to light touch is intact L2-S1 Motor: 55 strength appreciated in the bilateral upper extremities with shoulder abduction, shoulder elevation, elbow extension, elbow flexion, wrist extension, wrist flexion, terminal manager 55 strength appreciated bilateral lower extremities with hip flexion, knee extension, knee flexion, plantar flexion, dorsiflexion, EHL, FHL Reflexes: 2/4 in all UE and LE Negative Damián's bilaterally Negative Babinski bilaterally Negative clonus bilaterally - Labs CBC & Chem 7: 01/18/22 10:25 01/17/22 08:08 Labs: Abnormal Lab Results - Last 24 Hours (Table) 01/18/22 Range/Units 10:25 RBC 3.31 L (3.80-5.40) m/uL Hgb 8.9 L (11.4-16.0) gm/dL Hct 28.4 L (34.0-46.0) % Neutrophils # 8.3 H (1.3-7.7) k/uL Assessment and Plan Assessment: Postoperative day #4 status post L3-S1 posterior lateral decompression and fusion New-onset A. fib Medical comorbidities Plan: Pain control, plan for discharge home on [place] 10 mg/325 mg. Stool softeners also be prescribed for constipation. DVT prophylaxis, patient has been started on an oral anti-coagulum by cardiology Wound care, instructions are discussed today with regards to dressing changes along with showering instructions Weight-bear as tolerated with walker, utilize LSO brace when up and ambulating Continue PT/OT daily Encourage incentive spirometer Other medical attendant recommendations Discharge planning: Discharge home today Time with Patient: Less than 30
--- NOTE | 2022-01-19 11:38 | P.DS ---
Providers Date of admission: 01/15/22 06:53 Expected date of discharge: 01/19/22 Attending physician: Antonio Garvin DO Consults: 01/15/22 14:14 Consult Physician Routine Consulting Provider: Brittany Miller Consult Reason/Comments: Medical Management Do you want consulting provider notified?: Yes 01/16/22 18:28 Consult Physician Urgent Consulting Provider: Reji Machado Consult Reason/Comments: new onset atrial fib with RVR Do you want consulting provider notified?: Yes [facility]: Date of admission: 01/15/2022 Date of discharge: 01/19/2022 Admission diagnosis: Status post L3-S1 decompression with posterior lateral interbody fusion Discharge diagnosis: Same, A. fib Attending physician: Dr. Garvin Surgical procedures: L3-S1 decompression with posterior lateral and interbody fusion, please see operative note for further detail and description of surgical Brief history: Patient is a 71-year-old female with a history of progressive low back pain with lower extremity weakness and paresthesias. At this point patient has failed conservative treatment measures and has opted to proceed with a elective L3-S1 decompression with posterior lateral and interbody fusion. Hospital course: Details of patient's surgery can be found in operative report. Patient tolerated the procedure well and was subsequently transported to orthopedic floor. Patient's orthopeidc and medical care was provided daily. Patient had daily laboratory tests performed for evaluation of overall blood counts. Patient had daily physical therapy to include strengthening range of motion as well as education with walker ambulation. Patient was treated with Eliquis for their postoperative DVT prophylaxis during their inpatient stay. D uring her hospital stay, patient did develop new onset A. fib. She was transferred to the cardiac stepdown unit for further monitoring. Cardiology was available to examine his recommendations for this patient. Patient reported satisfactory pain control with oral pain medications by postoperative day 1. Patient showed satisfactory progress with physical therapy. Patient moved steadily through the program and had no difficulty meeting the goals by postoperative day 4. Given patient's otherwise satisfactory course and having met physical therapy goals, plan is to discharge patient [home] on postoperative day 4. Discharge condition/disposition: Patient will be discharged [home] in stable condition. Discharge medications: Instructions are given on resumption of patient's normal daily medications per primary care recommendation, in addition patient will be prescribed [place] 10 mg/325 mg, Flexeril 5 mg, Duricef 500mg, Eliquis 5mg, Lopressor 25mg, Norvasc 5mg, Senna-S. Spine Discharge and Recovery Instructions Medications: See medication list All medication refills should be obtained through your primary care doctor or your clinic spine surgeon. Please discuss prescription refills at your follow up appointment. Do not call the hospital for medication refills. Dressing: Leave your dressing in place for a total of 5 days post operatively. Then you may remove your dressing and leave open to air. Keep the area clean and if not able to keep area clean, then cover with sterile gauze and tape. Showering: You may shower 3 days after your procedure allowing soap and water to run over incision. Do not scrub. Do not soak. Blot dry. Follow up: Please confirm a follow up appointment with your surgeon 3 weeks post operatively. Please make an appointment to follow up with your PCP in 1-2 weeks after surgery for evaluation 3 phase, 3-week plan POST OP WEEKS 1-3 1. Lifting/carrying/pushing/pulling limited to less than 5 pounds. 2. Do not sit for longer than 15 minutes at one time. Get up and walk around. Prolonged sitting is NOT advised. If you lay down, see if you can tolerate laying down on you front (belly side) 3. Walk for periods of 15 minutes = 1 mile but no longer; do it multiple times times each day. 4. Ice your low back after activity. POST OP WEEKS 3-6 1. Lifting limited to less than 20 pounds. 2. Do not sit for longer than 30 minutes at a time. Frequently change positions. Use a sit-to stand workstation or take frequent breaks from sitting if you have returned to work. 3. Walk for 30 minutes each day. If possible, do these three or more times a day POST OP WEEKS 6+ At your 6-week appointment we will give you a physical therapy referral to focus on a core stabilization and strengthening program. You should also work on leg & buttock strengthening, hamstring & quadriceps stretching, and continue a low impact aerobic activity program such as swimming, walking, or riding a stationary bicycle. During the initial 6 weeks after your surgery, you are at the highest risk of re-injuring your spine. You should generally avoid BLTs (bending, lifting and twisting combination motions) and follow the above guidelines to reduce the chance of reinjury. You can anticipate post op appointments in our office at approximately 3 weeks and 6 weeks after your surgery. INCISION CARE: If your incision is not draining you do NOT need to cover it with a dressing. Keep your incision clean, dry and intact. In most cases, we apply skin glue, jamaal or sutures to the incision at the time of surgery. This will be like a crust or have the appearance of a scab and will fall off in time on its own. The stitches or jamaal need to be removed at 3 weeks post op appointment. You may begin to shower 3 days after surgery (this allows the glue to crump well). However, please avoid scrubbing the incision site or peeling off any of the skin glue. This will ensure optimal healing of your incision. Also, during this time avoid soaking the incision area in water - this includes swimming pools, hot tubs or baths. No ointments, lotions or oils on the incision until your surgeon allows. Leave jamaal, sutures or glue in place. Neurological dysfunction that comes on suddenly can also be a sign of a stroke. Below some common symptoms of a stroke are listed: B - balance difficulty such as sudden onset walking or leaning to one side - NEW E - eye problem such as sudden double vision or trouble seeing on one side - NEW F - Facial weakness or numbness on one side - NEW A - Arm or leg weakness or numbness on one side - NEW S - Slurred speech or difficulty with word finding - NEW T - Time is BRAIN! Call 911 as soon as you recognize these symptoms Diet: Consume a regular diet rich in vegetables and lean protein such as chicken or fish. You should consume in a ratio of approximately 20% fats|40% carbohydrates|40%protein. Vegetables, sweet potatoes, brown rice or quinoa are examples of good carbohydrates. Chips, white bread, cookies and sweets/sugar are examples of bad carbohydrates. Limit your bad carbs, go wild with good carbs. "Life's Simple 7" Guidelines as per [employer] [place] [employer] These will help you reclaim your life after surgery and monument setter helper in your recovery, keeping in mind your restrictions. (1) Get Active. Physical activity can help people lose weight, control high blood pressure and cholesterol, feel emotionally better, and sleep better. (2) Control Cholesterol. Avoid a diet high in saturated fat, trans fat, & cholesterol. Limit whole milk & cream, ice cream, butter, egg yolks, processed meats (like sausage and hot dogs), and fatty meats. Choose healthy foods that are low in saturated fat, trans fat and cholesterol which include: Fruits and vegetables, fiber rich grain products (like whole grain pasta and brown rice), lean meat such as chicken, fish, nuts, seeds, and legumes. (3) Eat Better. Eat small portions. Shop at the grocery with a list and do not stray from it. Tips for a healthy diet include: Limit sodium intake to less than 1500mg daily, avoid prepackaged, processed, and fast foods, choose a diet rich in fruits, vegetables, and whole grain, high fiber foods, and limit saturated & cholesterol in your diet. (4) Manage Blood Pressure. If you have high blood pressure, you should have a cuff at home so that you can check your blood pressure regularly. Be sure you have a good cuff. An arm one is generally better than a wrist one. Bring the cuff to a doctor's appointment to validate that the measurements that your cuff are taking are accurate. Take your blood pressure twice daily when you are sitting down and relaxing. Record the numbers in a log and bring this log with you to your doctors' appointments. (5) Lose Weight if your BMI is above 25. A healthy BMI is between 19-25. To calculate Your BMI, you may use a Standard BMI Calculator on the NIH BMI website: <www.nhlbi.nih.gov/guidelines/obesity/BMI/bmicalc.htm>. Weigh oneself daily. If you are overweight, set a goal to lose weight. A pound a week loss if needed is a good target. (6) Reduce Blood Sugar. Limit foods and liquids with "added sugars." (Added sugars include sucrose, fructose, glucose, maltose, dextrose, high fructose corn syrup, corn syrup, concentrated fruit juice and honey). (7) Stop Smoking. If you smoke, quitting smoking is one of the best things that you can do for your health. Smoking increases your risk of heart attack, stroke, and peripheral vascular disease, which is a build-up of plaque in your arteries. Please discard all the cigarettes and lighters in your house. Have a plan for what you will do when you have the urge to smoke. Direct and second- hand smoke shortens your life as well as the lives of your family, friends and others around you. For your health and the health of those around you, please consider quitting! Proper Bending Body Mechanics: Maintain a wide stance with one foot slightly in front of the other. Keep your back straight. Bend utilizing the strength in your hips and knees. Do not bend at the waist. Maintain the lifted object at your waist-level close to your body. Avoid lifting weight that causes immediately pain or pain anywhere in the body afterwards. Smoking/Nicotine If there was ever one thing that you could do to increase your overall health, decrease your risk of cardiovascular problems by about 39% the second you make the choice, it is to STOP SMOKING. Your body's most instant gratification is the second you stop smoking. We have all heard the studies, read the articles but it is true, smoking is extremely bad for your overall health, and moreover it is detrimental to your bone health. Nicotine, IN ANY FORM, kills bone cells, prevents your body from healing fractures, and significantly prolongs healing after surgery. In spine surgery specifically, it increases your risk of not healing your bones to create a fusion and increases your risk of having a revision surgery due to this up to 60%. I know it is hard. I know it feels impossible. But there are ways. Take control of your life. We are here to help you through it. And when you are ready, ask us and we can direct you to help if you desire. Use the START Plan to Quit Smoking (please visit the Helpguide.org website listed below for more information): S = Set a quit date. Choose a date within the next 2 weeks, so you have enough time to prepare without losing your motivation to quit. If you mainly smoke at work, quit on the weekend, so you have a few days to adjust to the change. T = Tell family, friends, and co-workers that you plan to quit. Let your friends and family in on your plan to quit smoking and tell them you need their support and encouragement to stop. Look for a quit sachin who wants to stop smoking as well. You can help each other get through the rough times. A = Anticipate and plan for the challenges you'll face while quitting. Most people who begin smoking again do so within the first 3 months. You can help yourself make it through by preparing ahead for common challenges, such as nicotine withdrawal and cigarette cravings. R = Remove cigarettes and other tobacco products from your home, car, and work. Throw away all your cigarettes (no emergency pack!), lighters, ashtrays, and matches. Wash your clothes and freshen up anything that smells like smoke. Shampoo your car, clean your drapes and carpet, and steam your furniture. T = Talk to your doctor about getting help to quit. Your doctor can prescribe medication to help with withdrawal and suggest other alternatives. If you can't see a doctor, you can get many products over the counter at your local pharmacy or grocery store, including the nicotine patch, nicotine lozenges, and nicotine gum. Resources for Quitting Smoking: <https://www.[place].gov/documents/[facility]/Q uit_Tobacco_Resources_for_patients_313480_7.pdf> Supplementation: Take recommended dosages of Vitamin D and Calcium to help fortify your bones and help them to heal. See your health maintenance packet for dosages and recommended levels. DVT/VTE prophylaxis: You will be given compression stockings from the hospital. Wear these daily for the first two weeks after surgery. You may take them off at night. You may be prescribed a medication to help thin your blood. Take this as directed. If you are not prescribed this medication, early and frequent ambulation has been shown to be the best prophylaxis to deep vein thrombosis and sequelae related to this event. Procedures: L3-S1 posterior lateral interbody fusion and decompression Patient Condition at Discharge: Good Plan - Discharge Summary Discharge Rx Participant: Yes New Discharge Prescriptions: New Metoprolol Tartrate [Lopressor] 25 mg PO BID #180 tab amLODIPine [Norvasc] 5 mg PO QAM #90 tab cefaDROXiL [Duricef] 500 mg PO Q12HR 5 Days #10 cap Cyclobenzaprine [Flexeril] 5 mg PO BID PRN #30 tablet PRN Reason: Muscle Spasm Sennosides/Docusate Sodium [Senna-S 8.6-50 mg Tablet] 1 each PO DAILY PRN #30 tablet PRN Reason: Constipation Apixaban [Eliquis] 5 mg PO BID #60 tab HYDROcodone/APAP 10-325MG [[place] 10-325] 1 tab PO Q6HR PRN 7 Days #28 tab PRN Reason: Pain Continue Levothyroxine Sodium [Synthroid] 25 mcg PO QAM DULoxetine HCL [Cymbalta] 30 mg PO HS DULoxetine HCL [Cymbalta] 60 mg PO Gabapentin 600 mg PO BID Pravastatin Sodium [Pravachol] 40 mg PO HS Omeprazole Magnesium [PriLOSEC OTC] 20 mg PO DAILY Melatonin 1 mg PO HS Cholecalciferol [Vitamin D3 (25 Mcg = 1000 Iu)] 25 mcg PO DAILY Hydrocortisone Oint [Hydrocortisone 2.5% Oint] 1 applic TOPICAL BID Calcium Carbonate [Calcium] 600 mg PO ONCE Discontinued amLODIPine [Norvasc] 10 mg PO QAM Discharge Medication List Levothyroxine Sodium [Synthroid] 25 mcg PO QAM 01/01/18 [History] DULoxetine HCL [Cymbalta] 30 mg PO HS 01/11/22 [History] Omeprazole Magnesium [PriLOSEC OTC] 20 mg PO DAILY 01/11/22 [History] Pravastatin Sodium [Pravachol] 40 mg PO HS 01/11/22 [History] Calcium Carbonate [Calcium] 600 mg PO ONCE 01/15/22 [History] Cholecalciferol [Vitamin D3 (25 Mcg = 1000 Iu)] 25 mcg PO DAILY 01/15/22 [History] DULoxetine HCL [Cymbalta] 60 mg PO 01/15/22 [History] Gabapentin 600 mg PO BID 01/15/22 [History] Hydrocortisone Oint [Hydrocortisone 2.5% Oint] 1 applic TOPICAL BID 01/15/22 [History] Melatonin 1 mg PO HS 01/15/22 [History] Apixaban [Eliquis] 5 mg PO BID #60 tab 01/17/22 [Rx] Metoprolol Tartrate [Lopressor] 25 mg PO BID #180 tab 01/18/22 [Rx] amLODIPine [Norvasc] 5 mg PO QAM #90 tab 01/18/22 [Rx] Cyclobenzaprine [Flexeril] 5 mg PO BID PRN #30 tablet 01/19/22 [Rx] HYDROcodone/APAP 10-325MG [[place] 10-325] 1 tab PO Q6HR PRN 7 Days #28 tab 01/19/22 [Rx] Sennosides/Docusate Sodium [Senna-S 8.6-50 mg Tablet] 1 each PO DAILY PRN #30 tablet 01/19/22 [Rx] cefaDROXiL [Duricef] 500 mg PO Q12HR 5 Days #10 cap 01/19/22 [Rx] Follow up Appointment(s)/Referral(s): Janie Greenwood MD [STAFF PHYSICIAN] - 1 Week Antonio Garvin DO [Doctor of Osteopathic Medicine] - 2 Weeks Patient Instructions/Handouts: A-fib (Atrial Fibrillation) (DC), Lumbar Spinal Fusion (DC) Activity/Diet/Wound Care/Special Instructions: Activity: As tolerated. Take breaks as needed. Diet: Heart healthy and carb consistent diet. Avoid salts, or foods with hidden salts such as canned or boxed foods and frozen dinners. Extra salt makes your heart work harder and traps the fluid in your body for longer. Special Instructions: Take all of your medications as directed and remember to keep all of your doctor's appointments and follow-up as needed. Thank you for allowing us to participate in your care, it was truly a pleasure having you for our patient!!! Spine Discharge and Recovery Instructions Medications: See medication list All medication refills should be obtained through your primary care doctor or your clinic spine surgeon. Please discuss prescription refills at your follow up appointment. Do not call the hospital for medication refills. Dressing: Leave your dressing in place for a total of 5 days post operatively. Then you may remove your dressing and leave open to air. Keep the area clean and if not able to keep area clean, then cover with sterile gauze and tape. Showering: You may shower 3 days after your procedure allowing soap and water to run over incision. Do not scrub. Do not soak. Blot dry. Follow up: Please confirm a follow up appointment with your surgeon 3 weeks post operatively. Please make an appointment to follow up with your PCP in 1-2 weeks after surgery for evaluation 3 phase, 3-week plan POST OP WEEKS 1-3 1. Lifting/carrying/pushing/pulling limited to less than 5 pounds. 2. Do not sit for longer than 15 minutes at one time. Get up and walk around. Prolonged sitting is NOT advised. If you lay down, see if you can tolerate laying down on you front (belly side) 3. Walk for periods of 15 minutes = 1 mile but no longer; do it multiple times times each day. 4. Ice your low back after activity. POST OP WEEKS 3-6 1. Lifting limited to less than 20 pounds. 2. Do not sit for longer than 30 minutes at a time. Frequently change positions. Use a sit-to stand workstation or take frequent breaks from sitting if you have returned to work. 3. Walk for 30 minutes each day. If possible, do these three or more times a day POST OP WEEKS 6+ At your 6-week appointment we will give you a physical therapy referral to focus on a core stabilization and strengthening program. You should also work on leg & buttock strengthening, hamstring & quadriceps stretching, and continue a low impact aerobic activity program such as swimming, walking, or riding a stationary bicycle. During the initial 6 weeks after your surgery, you are at the highest risk of re-injuring your spine. You should generally avoid BLTs (bending, lifting and twisting combination motions) and follow the above guidelines to reduce the chance of reinjury. You can anticipate post op appointments in our office at approximately 3 weeks and 6 weeks after your surgery. INCISION CARE: If your incision is not draining you do NOT need to cover it with a dressing. Keep your incision clean, dry and intact. In most cases, we apply skin glue, jamaal or sutures to the incision at the time of surgery. This will be like a crust or have the appearance of a scab and will fall off in time on its own. The stitches or jamaal need to be removed at 3 weeks post op appointment. You may begin to shower 3 days after surgery (this allows the glue to crump well). However, please avoid scrubbing the incision site or peeling off any of the skin glue. This will ensure optimal healing of your incision. Also, during this time avoid soaking the incision area in water - this includes swimming pools, hot tubs or baths. No ointments, lotions or oils on the incision until your surgeon allows. Leave jamaal, sutures or glue in place. Neurological dysfunction that comes on suddenly can also be a sign of a stroke. Below some common symptoms of a stroke are listed: B - balance difficulty such as sudden onset walking or leaning to one side - NEW E - eye problem such as sudden double vision or trouble seeing on one side - NEW F - Facial weakness or numbness on one side - NEW A - Arm or leg weakness or numbness on one side - NEW S - Slurred speech or difficulty with word finding - NEW T - Time is BRAIN! Call 911 as soon as you recognize these symptoms Diet: Consume a regular diet rich in vegetables and lean protein such as chicken or fish. You should consume in a ratio of approximately 20% fats|40% carbohydrates|40%protein. Vegetables, sweet potatoes, brown rice or quinoa are examples of good carbohydrates. Chips, white bread, cookies and sweets/sugar are examples of bad carbohydrates. Limit your bad carbs, go wild with good carbs. "Life's Simple 7" Guidelines as per [employer] [place] [employer] These will help you reclaim your life after surgery and monument setter helper in your recovery, keeping in mind your restrictions. (1) Get Active. Physical activity can help people lose weight, control high blood pressure and cholesterol, feel emotionally better, and sleep better. (2) Control Cholesterol. Avoid a diet high in saturated fat, trans fat, & cholesterol. Limit whole milk & cream, ice cream, butter, egg yolks, processed meats (like sausage and hot dogs), and fatty meats. Choose healthy foods that are low in saturated fat, trans fat and cholesterol which include: Fruits and vegetables, fiber rich grain products (like whole grain pasta and brown rice), lean meat such as chicken, fish, nuts, seeds, and legumes. (3) Eat Better. Eat small portions. Shop at the grocery with a list and do not stray from it. Tips for a healthy diet include: Limit sodium intake to less than 1500mg daily, avoid prepackaged, processed, and fast foods, choose a diet rich in fruits, vegetables, and whole grain, high fiber foods, and limit saturated & cholesterol in your diet. (4) Manage Blood Pressure. If you have high blood pressure, you should have a cuff at home so that you can check your blood pressure regularly. Be sure you have a good cuff. An arm one is generally better than a wrist one. Bring the cuff to a doctor's appointment to validate that the measurements that your cuff are taking are accurate. Take your blood pressure twice daily when you are sitting down and relaxing. Record the numbers in a log and bring this log with you to your doctors' appointments. (5) Lose Weight if your BMI is above 25. A healthy BMI is between 19-25. To calculate Your BMI, you may use a Standard BMI Calculator on the NIH BMI website: <www.nhlbi.nih.gov/guidelines/obesity/BMI/bmicalc.htm>. Weigh oneself daily. If you are overweight, set a goal to lose weight. A pound a week loss if needed is a good target. (6) Reduce Blood Sugar. Limit foods and liquids with "added sugars." (Added sugars include sucrose, fructose, glucose, maltose, dextrose, high fructose corn syrup, corn syrup, concentrated fruit juice and honey). (7) Stop Smoking. If you smoke, quitting smoking is one of the best things that you can do for your health. Smoking increases your risk of heart attack, stroke, and peripheral vascular disease, which is a build-up of plaque in your arteries. Please discard all the cigarettes and lighters in your house. Have a plan for what you will do when you have the urge to smoke. Direct and second- hand smoke shortens your life as well as the lives of your family, friends and others around you. For your health and the health of those around you, please consider quitting! Proper Bending Body Mechanics: Maintain a wide stance with one foot slightly in front of the other. Keep your back straight. Bend utilizing the strength in your hips and knees. Do not bend at the waist. Maintain the lifted object at your waist-level close to your body. Avoid lifting weight that causes immediately pain or pain anywhere in the body afterwards. Smoking/Nicotine If there was ever one thing that you could do to increase your overall health, decrease your risk of cardiovascular problems by about 39% the second you make the choice, it is to STOP SMOKING. Your body's most instant gratification is the second you stop smoking. We have all heard the studies, read the articles but it is true, smoking is extremely bad for your overall health, and moreover it is detrimental to your bone health. Nicotine, IN ANY FORM, kills bone cells, prevents your body from healing fractures, and significantly prolongs healing after surgery. In spine surgery specifically, it increases your risk of not healing your bones to create a fusion and increases your risk of having a revision surgery due to this up to 60%. I know it is hard. I know it feels impossible. But there are ways. Take control of your life. We are here to help you through it. And when you are ready, ask us and we can direct you to help if you desire. Use the START Plan to Quit Smoking (please visit the Helpguide.org website listed below for more information): S = Set a quit date. Choose a date within the next 2 weeks, so you have enough time to prepare without losing your motivation to quit. If you mainly smoke at work, quit on the weekend, so you have a few days to adjust to the change. T = Tell family, friends, and co-workers that you plan to quit. Let your friends and family in on your plan to quit smoking and tell them you need their support and encouragement to stop. Look for a quit sachin who wants to stop smoking as well. You can help each other get through the rough times. A = Anticipate and plan for the challenges you'll face while quitting. Most people who begin smoking again do so within the first 3 months. You can help yourself make it through by preparing ahead for common challenges, such as nicotine withdrawal and cigarette cravings. R = Remove cigarettes and other tobacco products from your home, car, and work. Throw away all your cigarettes (no emergency pack!), lighters, ashtrays, and matches. Wash your clothes and freshen up anything that smells like smoke. Shampoo your car, clean your drapes and carpet, and steam your furniture. T = Talk to your doctor about getting help to quit. Your doctor can prescribe medication to help with withdrawal and suggest other alternatives. If you can't see a doctor, you can get many products over the counter at your local pharmacy or grocery store, including the nicotine patch, nicotine lozenges, and nicotine gum. Resources for Quitting Smoking: <https://www.[place].gov/documents/[facility]/Quit_Tobacco_Resources_for_patients_313 480_7.pdf> Supplementation: Take recommended dosages of Vitamin D and Calcium to help fortify your bones and help them to heal. See your health maintenance packet for dosages and recommended levels. DVT/VTE prophylaxis: You will be given compression stockings from the hospital. Wear these daily for the first two weeks after surgery. You may take them off at night. You may be prescribed a medication to help thin your blood. Take this as directed. If you are not prescribed this medication, early and frequent ambulation has been shown to be the best prophylaxis to deep vein thrombosis and sequelae related to this event. Discharge Disposition: HOME WITH HOME HEALTH SERVICES
--- NOTE | 2022-01-19 12:58 | P.PN ---
Subjective Progress Note Date: 01/19/22 History of Presenting Illness: Patient is a very pleasant 71-year-old female with a past medical history of hypertension, hypothyroidism, hyperlipidemia, anxiety/depression, and GERD. She is currently admitted under orthospine surgical team status post lumbar spine fusion. We have been consulted for medical management throughout patient's hospitalization. The evening of 01/16/22 patient was found to be in new onset atrial fibrillation with RVR. An EKG was completed confirming A. fib RVR with a ventricular rate of 129 bpm. Patient was started on a Cardizem infusion and later converted back into normal sinus rhythm. Anticoagulation was held on initial evening after discussing with orthospine surgeon secondary to excess serosanguineous output from postsurgical drain and > 3 g drop in hemoglobin. On the morning of 01/17/22 output from postsurgical drain significantly decreased and hemoglobin was stable only dropping from 10.1 down to 9.9 so patient was started on oral anticoagulant with Eliquis at that time. Patient is maintaining sinus mechanism at this time and in addition to oral anticoagulant was also started on metoprolol 25 mg twice daily. Echocardiogram completed revealing EF of 55-60% and mild tricuspid regurgitation. Patient was evaluated by cardiology and cleared from a cardiac standpoint for outpatient follow-up in their office. Medically, patient is also stable for discharge home once cleared by primary admitting orthospine surgery team. Physical exam: Patient was seen and fully evaluated at the bedside this morning. Patient is postoperative day 4 and continues to do well. patient reports pain is controlled and she has been ambulating in room and hallway with walker. She continues to maintain sinus mechanism with no further episodes of A. fib RVR. Vital signs stable. Patient is medically stable for discharge home once cleared by orthospine surgical team. Vital signs reviewed and stable. Obese. General: Nontoxic, no distress and appears stated age. Derm: Skin warm and dry, normal coloration for ethnicity. Dressing midline lumbar spine is clean, dry, and intact. Head: Atraumatic, normocephalic and symmetric. Eyes: EOMs intact, no lid lag, and anicteric sclera Mouth: no lip lesions, mucus membranes moist Cardiovascular: regular rate and rhythm with normal S1S2, no murmur, positive posterior tibial pulses bilaterally, and cap refill < 2 seconds. Lungs: Respirations even, regular, and unlabored on room air. Lungs CTA bilaterally, no rhonchi, no rales, no wheezing, and no accessory muscle usage. GI/: Obese abdomen soft, nontender to palpation, no guarding, no appreciable organomegaly. Ext: ROM intact. No gross muscle atrophy, no edema, no contractures Neuro: Speech clear, face symmetrical and CN II-XII grossly intact with no noted focal neuro deficits Psych: Alert and oriented to person, place, time, and situation. Appropriate and pleasant affect. Assessment and Plan of Care: New-onset A. fib RVR, maintaining sinus mechanism -01/16/22 patient was found to be in new onset atrial fibrillation with a rapid ventricular rate maintaining and 140s. -EKG was completed revealing atrial fibrillation with RVR with a ventricular rate of 129 bpm. -Patient was started on Cardizem infusion and later converted back into normal sinus rhythm. -Echocardiogram completed revealing EF of 55-60% and mild tricuspid regurgitation. -Patient started on Eliquis and metoprolol. Acute postoperative blood loss anemia -Patient initially had greater than 3 g drop in hemoglobin with excess output from surgical drain. Patient did not require any transfusions and postsurgical drainage significantly decreased and hemoglobin stabilized. -Hemoglobin stable -Continue to monitor with repeat a.m. labs. Status post L3 through pelvis spinal decompression and fusion -Management per primary admitting orthospine surgical team including DVT prophylaxis, pain management, dressing/strain management, weightbearing, and PT/OT. -Pt started on Eliquis secondary to new onset atrial fibrillation with RVR. Hypertension -Monitor vital signs and continue daily medication regimen with amlodipine Hypothyroidism -Continue daily medication regimen with levothyroxine. Hyperlipidemia -Continue daily medication regimen with pravastatin. Anxiety/depression -Continue daily medication regimen with Cymbalta. GERD -Continue daily medication regimen with pravastatin. Thank you for allowing us to participate in the care of this pleasant patient. Do not hesitate to contact us with questions. Someone can be reached from the [facility] hospitalist group all hours of the day at [phone] or via perfect serve.. Objective - Vital Signs Vital signs: Vital Signs Temp 98.2 F 01/19/22 02:00 Pulse 78 01/19/22 02:00 Resp 16 01/19/22 02:00 BP 126/76 01/19/22 02:00 Pulse Ox 96 01/19/22 02:00 FiO2 Intake & Output 01/18/22 01/19/22 01/19/22 18:59 06:59 18:59 Output Total 131 60 Balance -131 -60 Output: Drainage 130 60 Right Lower Medial Back 130 60 Stool 1 Other: Voiding Method Toilet # Voids 1 1 - Labs CBC & Chem 7: 01/18/22 10:25 01/17/22 08:08 Labs: Abnormal Lab Results - Last 24 Hours (Table) 01/18/22 Range/Units 10:25 RBC 3.31 L (3.80-5.40) m/uL Hgb 8.9 L (11.4-16.0) gm/dL Hct 28.4 L (34.0-46.0) % Neutrophils # 8.3 H (1.3-7.7) k/uL
--- NOTE | 2022-01-24 13:52 | CDI ---
m Documentation Clarification Form Date: 01/24/22 From: Felicia Briceño Admit Date: 01/15/2022 06:53:00 AM Patient Name: Sofia Chaudhari Visit Number: [id number] Discharge Date: 01/19/2022 12:59:00 PM ATTENTION: The Clinical Documentation Specialists (CDI) and [facility] Coding Staff appreciate your assistance in clarifying documentation. Please respond to the clarification below the line at the bottom and electronically sign. The CDI & [facility] Coding staff will review the response and follow-up if needed. Please note: Queries are made part of the Legal Health Record. If you have any questions, please contact the author of this message via ITS. Dr. Katerin Lee, Per your 01/16 addendum progress note "Orders place for stat CBC, TSH, and D- dimer as pt also with noted hypoxia with SPO2 90-91% previously 97%. Based on this information and the findings below, is there an additional diagnosis that is clinically appropriate for this patient? Patient history/risk factors: spondylolisthesis-lumbar, hypotension, degenerative scoliosis-lumbar, PAF, lumbar spinal stenosis w neurogenic claudication Clinical Indicators: 01/17-O2 NC 4L NC, 01/18-O2 3L NC, 01/19 off oxygen Treatment: oxygen Is there an additional diagnosis that is clinically appropriate for this patient? [X ] Acute respiratory hypoxic failure [ ] Unable to determine MTDD
== END 2022-01-19 12:59 | disposition home or self-care (01) | DRG 453 ==
LOC: 2ORMAIN 06:53 → 4SSUR 16:48 → 3SCARD 01-16 22:50
PROVIDERS: ADMIT Orthopaedic Surgery; ATTEND Orthopaedic Surgery
PROC: 0ST40ZZ Resection of Lumbosacral Disc, Open Approach (ICD-10-PCS; principal; 2022-01-15 08:45)
PROC: 01NR0ZZ Release Sacral Nerve, Open Approach (ICD-10-PCS; principal; 2022-01-15 08:45)
PROC: 0ST20ZZ Resection of Lumbar Vertebral Disc, Open Approach (ICD-10-PCS; principal; 2022-01-15 08:45)
PROC: 0SG1071 Fusion of 2 or more Lumbar Vertebral Joints with Autologous Tissue Substitute, Posterior Approach, Posterior Column, Open Approach (ICD-10-PCS; principal; 2022-01-15 08:45)
PROC: 4A11X4G Monitoring of Peripheral Nervous Electrical Activity, Intraoperative, External Approach (ICD-10-PCS; principal; 2022-01-15 08:45)
PROC: 0SG30AJ Fusion of Lumbosacral Joint with Interbody Fusion Device, Posterior Approach, Anterior Column, Open Approach (ICD-10-PCS; principal; 2022-01-15 08:45)
PROC: 0SG3071 Fusion of Lumbosacral Joint with Autologous Tissue Substitute, Posterior Approach, Posterior Column, Open Approach (ICD-10-PCS; principal; 2022-01-15 08:45)
PROC: 0SG10AJ Fusion of 2 or more Lumbar Vertebral Joints with Interbody Fusion Device, Posterior Approach, Anterior Column, Open Approach (ICD-10-PCS; principal; 2022-01-15 08:45)
PROC: 01NB0ZZ Release Lumbar Nerve, Open Approach (ICD-10-PCS; principal; 2022-01-15 08:45)
DX: M43.16 Spondylolisthesis, lumbar region (principal); J96.01 Acute respiratory failure with hypoxia; D62 Acute posthemorrhagic anemia; I95.9 Hypotension, unspecified; M41.86 Other forms of scoliosis, lumbar region; I48.0 Paroxysmal atrial fibrillation; M48.062 Spinal stenosis, lumbar region with neurogenic claudication; M47.26 Other spondylosis with radiculopathy, lumbar region; M47.27 Other spondylosis with radiculopathy, lumbosacral region; M85.80 Other specified disorders of bone density and structure, unspecified site; E78.00 Pure hypercholesterolemia, unspecified; E03.9 Hypothyroidism, unspecified; I10 Essential (primary) hypertension; I07.1 Rheumatic tricuspid insufficiency; G47.9 Sleep disorder, unspecified; K21.9 Gastro-esophageal reflux disease without esophagitis; M19.90 Unspecified osteoarthritis, unspecified site; F32.A Depression, unspecified; H91.90 Unspecified hearing loss, unspecified ear; F41.9 Anxiety disorder, unspecified; E66.9 Obesity, unspecified; Z68.37 Body mass index [BMI] 37.0-37.9, adult; R15.9 Full incontinence of feces; Z79.890 Hormone replacement therapy; Z79.899 Other long term (current) drug therapy; Z87.891 Personal history of nicotine dependence; Z86.711 Personal history of pulmonary embolism; Z85.828 Personal history of other malignant neoplasm of skin; Z88.5 Allergy status to narcotic agent; Z88.8 Allergy status to other drugs, medicaments and biological substances
CPT/HCPCS: 71275; 72100; 72131; 80048; 80053; 84443; 85025; 85027; 85379; 85610; 85730; 86850; 86900; 86901; 93005; 93306; 94760

== ENCOUNTER → 2022-05-22 | Outpatient (CLI) | payer MEDICARE ==
[2022-05-22 10:59] LABS: ALT 23 U/L (8-44); AST 19 U/L (13-35); Chol/HDL Ratio 3.22 Ratio; LDL Cholesterol,Calculated 90.8 mg/dL (0.0-131.0)
== END | disposition home or self-care (01) ==
LOC: LABWHC1 08:23
PROVIDERS: ATTEND Internal Medicine Interventional Cardiology
DX: E78.2 Mixed hyperlipidemia (principal)
CPT/HCPCS: 36415; 80061; 84450; 84460

== ENCOUNTER → 2022-09-12 | Outpatient (CLI) | payer MEDICARE ==
--- NOTE | 2022-09-12 19:15 | MM ---
Reason for Exam: Screening (asymptomatic). Last mammogram was performed 4 year(s) and 2 month(s) ago. Patient History: Menarche at age 12. First Full-Term at age 21. Hysterectomy at age 32. Postmenopausal. Other cancer, age 26. Paternal grandmother had breast cancer, age 50. Brother had breast cancer, age 52. Risk Values: Delilah 5 year model risk: 3.4%. NCI Lifetime model risk: 8.6%. Prior Study Comparison: 06/03/2016 Bilateral Screening Mammogram, [facility]. 06/17/2017 Bilateral Screening Mammogram, [facility]. 06/30/2018 Bilateral Screening Mammogram, [facility]. Tissue Density: The breast tissue is heterogeneously dense. This may lower the sensitivity of mammography. Findings: Analyzed By CAD. Benign bilateral vascular calcifications. There is no suspicious group of microcalcifications or new suspicious mass in either breast. Overall Assessment: Benign, BI-RAD 2 Management: Screening Mammogram of both breasts in 1 year. See note below regarding patient's increased 5 year Delilah score. Patient should continue monthly self-breast exams. A clinical breast exam by your physician is recommended on an annual basis. This exam should not preclude additional follow-up of suspicious palpable abnormalities. Note on Delilah scores and lifetime risk: 1. A Delilah score greater than 3% is considered moderate risk. If this is the case, consider specialist referral to assess eligibility for a risk reducing agent. 2. If overall lifetime risk for the development of breast cancer is 20% or higher, the patient may qualify for future screening with alternating mammogram and breast MRI. Electronically signed and approved by: Dayday Willams M.D. Radiologist
== END | disposition home or self-care (01) ==
LOC: RADMAMWWP 06:46
PROVIDERS: ATTEND Family Medicine
DX: Z12.31 Encounter for screening mammogram for malignant neoplasm of breast (principal); Z78.0 Asymptomatic menopausal state; Z80.3 Family history of malignant neoplasm of breast
CPT/HCPCS: 77063; 77067

== ENCOUNTER → 2024-09-21 | Outpatient (CLI) | payer MEDICARE ==
--- NOTE | 2024-10-26 03:12 | EM ---
EVENT MONITOR PROCEDURE PERFORMED: A 30-day event monitor. INDICATION: Unspecified atrial fibrillation. Underlying rhythm is sinus with an average heart rate of 62 beats per minute, heart rate varied from 47 beats per minute to 157 beats per minute. There were episodes of atrial flutter and short self-limited runs of atrial fibrillation. We did not see any pauses and/or heart block. CONCLUSIONS: This 30-day event monitor shows sinus rhythm with less than 1% atrial fibrillation burden and rare episodes of atrial flutter, rare PVCs and PACs. MMODL / IJN: [id number] /
== END | disposition home or self-care (01) ==
LOC: RADECHMAIN 07:25
PROVIDERS: ATTEND Family Medicine
DX: I48.91 Unspecified atrial fibrillation (principal)
CPT/HCPCS: 93270

== ENCOUNTER → 2024-11-23 | Outpatient (CLI) | payer MEDICARE ==
[2024-11-23 15:02] LABS: HCT 44.9 % (37.2-46.3); HGB 14.5 g/dL (12.0-15.0); MCH 27.6 pg (27.0-32.0); MCHC 32.3 g/dL (32.0-37.0); MCV 85.5 FL (80.0-97.0); NRBC Per 100 WBC 0 X 10*3/uL (0.00-0.01); Platelet Count 332 X 10*3/uL (140-440); RBC 5.25 X 10*6/uL (4.10-5.20); RDW 14.2 % (11.5-14.5); WBC 8.64 X 10*3/uL (4.50-10.00)
[2024-11-23 15:18] LABS: Anion Gap 14.10 mmol/L (4.00-12.00); Blood Urea Nitrogen 13.1 mg/dL (9.0-27.0); Carbon Dioxide 26.9 mmol/L (21.6-31.8); Chloride 100 mmol/L (96-109); Potassium 3.9 mmol/L (3.5-5.5); Sodium 141 mmol/L (135-145)
== END | disposition home or self-care (01) ==
LOC: LABPAT 08:42
PROVIDERS: ATTEND Internal Medicine Interventional Cardiology
DX: Z01.812 Encounter for preprocedural laboratory examination (principal); R94.39 Abnormal result of other cardiovascular function study
CPT/HCPCS: 80051; 82565; 84520; 85027